=== PATIENT | female | born 1970 | race Caucasian/White ===

== ENCOUNTER → 2017-11-24 | Outpatient (CLI) | payer BC, OTHER ==
--- NOTE | 2017-11-28 11:43 | MM ---
Reason for exam: screening (asymptomatic). Last mammogram was performed 4 years and 11 months ago. History: Patient had first child at age 30. Reductions of both breasts, April 2007. Physical Findings: A clinical breast exam by your physician is recommended on an annual basis and results should be correlated with mammographic findings. MG 3D Screening Mammo W/Cad Bilateral CC and MLO view(s) were taken. Prior study comparison: January 08, 2013, UP DIGITAL BILATERAL MAMMOGRAM w/CAD. January 02, 2013, bilateral digital screening mammo w/CAD. Finding: There is a 35 x 46 mm high density, circumscribed oval mass located 9 cm from the nipple in the lower inner quadrant, posterior position of the right breast. New finding since January 08, 2013 and January 02, 2013. ASSESSMENT: Incomplete: need additional imaging evaluation, BI-RAD 0 RECOMMENDATION: Ultrasound of the right breast. [facility] will attempt to contact patient to return for ultrasound.
== END | disposition home or self-care (01) ==
LOC: RADMAMWWP 15:36
PROVIDERS: ATTEND Obstetrics & Gynecology
DX: Z12.31 Encounter for screening mammogram for malignant neoplasm of breast (principal)
CPT/HCPCS: 77063; 77067

== ENCOUNTER → 2017-12-05 | Outpatient (CLI) | payer BC, OTHER ==
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
== END ==
LOC: RADUSWWP 15:27
PROVIDERS: ATTEND Obstetrics & Gynecology
DX: R92.8 Other abnormal and inconclusive findings on diagnostic imaging of breast (principal)

== ENCOUNTER → 2019-04-13 | Day surgery (SDC) | payer BC ==
[2019-04-11 12:13] VITALS: BMI 42.5
[~2019-04-13] MED LIST: LACTATED RINGERS 1,000 ML IV SCH; LIDOCAINE 1% INJ 10MG/ML (20 ML MDV) ONE; PROPOFOL 10 MG/ML 20 ML VIAL IV ONE
[2019-04-13 09:42] VITALS: TEMP 98.5
[2019-04-13 09:43] LABS: Glucose,Whole Blood 102 mg/dL (75-99)
--- NOTE | 2019-04-13 10:31 | P.GSHP ---
History of Present Illness H&P Date: 04/13/19 Chief Complaint: GERD, morbid obesity [id number] female who presents today for EGD. Patient underwent workup for sleeve gastrectomy. She's had issues with GERD. Past Medical History Past Medical History: GERD/Reflux, Hyperlipidemia, Hypertension, Thyroid Disorder Additional Past Medical History / Comment(s): takes metformin to help w/weight loss History of Any Multi-Drug Resistant Organisms: None Reported Past Surgical History: Breast Surgery, Cholecystectomy, Orthopedic Surgery, Uterine Ablation Additional Past Surgical History / Comment(s): RT Rotator cuff surgery, laparoscopy r/t bilateral ovarian cysts, bilateral breast reduction Past Anesthesia/Blood Transfusion Reactions: Motion Sickness, Postoperative Nausea & Vomiting (PONV) Smoking Status: Never smoker - Past Family History Mother Family Medical History: No Reported History Father Family Medical History: Diabetes Mellitus, Hyperlipidemia, Hypertension Medications and Allergies Home Medications Medication Instructions Recorded Confirmed Type Albuterol Inhaler [Ventolin Hfa 2 puff INHALATION Q6HR PRN 06/30/15 04/13/19 History Inhaler] Ibuprofen [Motrin] 800 mg PO DAILY PRN 06/30/15 04/13/19 History Simvastatin [Zocor] 40 mg PO DAILY 06/30/15 04/13/19 History amLODIPine BESYLATE/BENAZEPRIL 1 cap PO DAILY 06/30/15 04/13/19 History [Lotrel 5-10 MG] Escitalopram [Lexapro] 40 mg PO DAILY 03/27/19 04/13/19 History metFORMIN HCL 500 mg PO DAILY 03/27/19 04/13/19 History Allergies Allergy/AdvReac Type Severity Reaction Status Date / Time latex Allergy Rash/Hives Verified 04/13/19 09:36 Penicillins Allergy Rash/Hives Verified 04/13/19 09:36 Surgical - Exam Vital Signs Temp Pulse Resp BP Pulse Ox 98.5 F 87 16 131/85 95 04/13/19 09:39 04/13/19 09:39 04/13/19 09:39 04/13/19 09:39 04/13/19 09:39 - General well developed, well nourished, no distress - Eyes PERRL - ENT normal pinna - Neck no masses - Respiratory normal expansion - Cardiovascular Rhythm: regular - Abdomen Abdomen: soft, non tender Results - Labs Abnormal Lab Results - Last 24 Hours (Table) 04/13/19 Range/Units 09:41 POC Glucose (mg/dL) 102 H (75-99) mg/dL Assessment and Plan Assessment: GERD, morbid obesity, BMI 44 We'll perform EGD
[2019-04-13 10:43] VITALS: RESP 17
--- NOTE | 2019-04-13 10:44 | P.OP ---
Date of Procedure: 04/13/19 Preoperative Diagnosis: Morbid obesity Postoperative Diagnosis: Antral gastritis Procedure(s) Performed: EGD Anesthesia: MAC Surgeon: Harrison Corona Pathology: other (Antrum) Condition: stable Disposition: PACU Description of Procedure: Patient's placed on the endoscopy table in the lateral position. She received IV sedation. The gastroscope placed oropharynx passed in the esophagus and stomach. Scope was then placed through the pylorus. The first and second portion of the duodenum appeared normal. Scope was then brought back the antrum and this appeared mildly inflamed. A biopsies performed. Scope was retroflexed and remainder stomach appeared normal. The GE junction was at 40 cm the distal esophagus appeared normal. The proximal esophagus appeared normal. The scope was withdrawn for patient..
[2019-04-13 10:56] VITALS: BP 135/79; PULSE 74
== END ==
LOC: ORWHC2ENDO 09:19
PROVIDERS: ATTEND Surgery
DX: K31.9 Disease of stomach and duodenum, unspecified (principal); K29.70 Gastritis, unspecified, without bleeding; K21.9 Gastro-esophageal reflux disease without esophagitis; E78.5 Hyperlipidemia, unspecified; I10 Essential (primary) hypertension; E07.9 Disorder of thyroid, unspecified; F32.9 Major depressive disorder, single episode, unspecified; E66.01 Morbid (severe) obesity due to excess calories; Z68.41 Body mass index [BMI] 40.0-44.9, adult; Z91.040 Latex allergy status; Z88.0 Allergy status to penicillin; Z98.890 Other specified postprocedural states; Z90.49 Acquired absence of other specified parts of digestive tract; Z87.898 Personal history of other specified conditions; Z91.89 Other specified personal risk factors, not elsewhere classified; Z79.84 Long term (current) use of oral hypoglycemic drugs; Z79.899 Other long term (current) drug therapy; Z83.3 Family history of diabetes mellitus; Z83.438 Family history of other disorder of lipoprotein metabolism and other lipidemia; Z82.49 Family history of ischemic heart disease and other diseases of the circulatory system
CPT/HCPCS: 43239; J2001; J2704; 88305

== ENCOUNTER → 2019-04-30 | Outpatient (CLI) | payer BC ==
[2019-04-30 11:04] VITALS: BMI 44.2
[2019-04-30 13:15] VITALS: BP 137/85; PULSE 80; TEMP 98.2
--- NOTE | 2019-05-03 11:49 | P.HPBAR ---
Bariatric H&P - History & Physicial H&P Date: 04/30/19 History & Physicial: Visit/CC: Presurgical class Patient initial contact: Initial weight: 115.167 kg Initial weight in pounds: 253.90 Height: 5 ft 4 in Initial BMI: 43.5 Last weight: Current weight: 116.981 kg Current weight in pounds: 257.90 Current BMI: 44.2 Start body weight (based on NIH guidelines): 54.431 kg Excess body weight loss: The patient is a 49 year-old F who presents for Bariatric Assessment. Patient presents today for presurgical consultation or gastric sleeve. Her BMI is 44. She has an excellent understanding of the sleeve gastrectomy. Past Medical History Past Medical History: GERD/Reflux, Hyperlipidemia, Hypertension, Thyroid Disorder Additional Past Medical History / Comment(s): takes metformin to help w/weight loss History of Any Multi-Drug Resistant Organisms: None Reported Past Surgical History: Breast Surgery, Cholecystectomy, Orthopedic Surgery, Uterine Ablation Additional Past Surgical History / Comment(s): RT Rotator cuff surgery, laparoscopy r/t bilateral ovarian cysts, bilateral breast reduction Past Anesthesia/Blood Transfusion Reactions: Motion Sickness, Postoperative Nausea & Vomiting (PONV) Past Psychological History: Depression Additional Psychological History / Comment(s): takes Lexapro Smoking Status: Never smoker Past Alcohol Use History: Rare Past Drug Use History: None Reported - Past Family History Mother Family Medical History: No Reported History Father Family Medical History: Diabetes Mellitus, Hyperlipidemia, Hypertension Surgical - Exam Vital Signs Temp Pulse BP 98.2 F 80 137/85 04/30/19 13:11 04/30/19 13:11 04/30/19 13:11 - General well developed, well nourished, no distress - Eyes PERRL - ENT normal pinna - Neck no masses - Respiratory normal expansion - Cardiovascular Rhythm: regular - Abdomen Abdomen: soft, non tender Bariatric Assessment & Plan Plan: Morbid obesity, BMI 44. Patient has an excellent understanding signature. We will the risks and benefits of procedure and possible gastric staple line disruption, bleeding or scarring. Patient was scheduled for EGD. Bariatric Checklist Checklist: Plan: Checklist: EGD: 1. Hiatal hernia: 2. H. Pylori: HgbA1c: Vitamin D: Smoking: Never smoker Primary care physician referral: Dr. Jose Francisco Jennings Psychiatry clearance: Cardiology clearance: Sleep study: Diet journal: VTE risk score: VTE risk level: Rehab needs at discharge:
== END | disposition home or self-care (01) ==
LOC: BARWHC3 08:45
PROVIDERS: ATTEND Surgery
DX: E66.01 Morbid (severe) obesity due to excess calories (principal); Z68.41 Body mass index [BMI] 40.0-44.9, adult; Z90.49 Acquired absence of other specified parts of digestive tract
CPT/HCPCS: 97804; 99211

== ENCOUNTER → 2019-07-23 | Outpatient (CLI) | payer BC ==
[2019-07-23 13:44] VITALS: BP 170/103; PULSE 88; RESP 20; TEMP 98; BMI 46.8
--- NOTE | 2019-07-23 15:22 | P.HPBAR ---
Bariatric H&P - History & Physicial H&P Date: 07/23/19 History & Physicial: Visit/CC: Pre surgical visit, no c/o Patient initial contact: Initial weight: 115.167 kg Initial weight in pounds: 253.90 Height: 5 ft 4 in Initial BMI: 43.5 Last weight: Current weight: 123.876 kg Current weight in pounds: 273.10 Current BMI: 46.8 [place] body weight (based on NIH guidelines): 54.431 kg Excess body weight loss: The patient is a 49 year-old F who presents for Bariatric Assessment. Patient presurgical consultation. She is scheduled for gastric sleeve surgery in August. Her BMI is 47. Patient is Sincerely gastrectomy. Over the risks and benefits of procedure including conversion to the open procedure and injury to the stomach liver spleen and gastric staple line disruption bleeding or scarring. Past Medical History Past Medical History: GERD/Reflux, Hyperlipidemia, Hypertension, Thyroid Disorder Additional Past Medical History / Comment(s): takes metformin to help w/weight loss History of Any Multi-Drug Resistant Organisms: None Reported Past Surgical History: Breast Surgery, Cholecystectomy, Orthopedic Surgery, Uterine Ablation Additional Past Surgical History / Comment(s): RT Rotator cuff surgery, laparoscopy r/t bilateral ovarian cysts, bilateral breast reduction Past Anesthesia/Blood Transfusion Reactions: Motion Sickness, Postoperative Nausea & Vomiting (PONV) Past Psychological History: Depression Additional Psychological History / Comment(s): takes Lexapro Smoking Status: Never smoker Past Alcohol Use History: Rare Past Drug Use History: None Reported - Past Family History Mother Family Medical History: No Reported History Father Family Medical History: Diabetes Mellitus, Hyperlipidemia, Hypertension Surgical - Exam Vital Signs Temp Pulse Resp BP 98.0 F 88 20 170/103 07/23/19 13:40 07/23/19 13:40 07/23/19 13:40 07/23/19 13:40 - General well developed, no distress - Eyes PERRL - ENT normal pinna - Neck no masses - Respiratory normal expansion - Cardiovascular Rhythm: regular - Abdomen Abdomen: soft, non tender Bariatric Assessment & Plan Plan: For Sarina, BMI of 47. Patient will be scheduled for sleeve gastrectomy . Bariatric Checklist Checklist: Plan: Checklist: EGD: 1. Hiatal hernia: 2. H. Pylori: HgbA1c: Vitamin D: Smoking: Never smoker Primary care physician referral: Dr. Jose Francisco Jennings Psychiatry clearance: Cardiology clearance: Sleep study: Diet journal: VTE risk score: VTE risk level: Rehab needs at discharge:
== END | disposition home or self-care (01) ==
LOC: BARWHC3 13:11
PROVIDERS: ATTEND Surgery
DX: Z48.815 Encounter for surgical aftercare following surgery on the digestive system (principal); Z90.49 Acquired absence of other specified parts of digestive tract; Z98.890 Other specified postprocedural states
CPT/HCPCS: 99211

== ENCOUNTER → 2019-08-17 | Outpatient (CLI) | payer BC ==
[2019-08-17 14:21] LABS: Basophils # (A) 0.1 k/uL (0-0.2); Basophils % (A) 1 %; Eosinophils # (A) 0.2 k/uL (0-0.7); Eosinophils % (A) 1 %; HCT 41.6 % (34.0-46.0); HGB 13.6 gm/dL (11.4-16.0); Lymphocytes % (A) 17 %; MCH 31.1 pg (25.0-35.0); MCHC 32.7 g/dL (31.0-37.0); MCV 95.3 fL (80.0-100.0); Mean Platelet Volume 7.1; Monocytes # (A) 0.6 k/uL (0-1.0); Monocytes % (A) 5 %; Neutrophils # (A) 8.5 k/uL (1.3-7.7); Neutrophils % (A) 73 %; Platelet Count 358 k/uL (150-450); RBC 4.36 m/uL (3.80-5.40); RDW 13.1 % (11.5-15.5); WBC 11.6 k/uL (3.8-10.6)
[2019-08-17 14:58] LABS: ALT 152 U/L (4-34); AST 129 U/L (14-36); African American GFR (CKD) >90 (>60 ml/min/1.73 sqM); Albumin 4.5 g/dL (3.5-5.0); Alkaline Phosphatase 107 U/L (38-126); Anion Gap 9 mmol/L; Blood Urea Nitrogen 21 mg/dL (7-17); Calcium 9.8 mg/dL (8.4-10.2); Carbon Dioxide 27 mmol/L (22-30); Chloride 101 mmol/L (98-107); Glucose 102 mg/dL (74-99); Non-African American GFR(CKD) >90 (>60 ml/min/1.73 sqM); Sodium 137 mmol/L (137-145); Total Bilirubin 0.4 mg/dL (0.2-1.3); Total Protein 7.9 g/dL (6.3-8.2)
== END | disposition home or self-care (01) ==
LOC: LABPAT 12:20
PROVIDERS: ATTEND Surgery
DX: Z01.818 Encounter for other preprocedural examination (principal); U07.1 COVID-19
CPT/HCPCS: 80053; 85025; 93005; 36415; U0003

== ENCOUNTER 2019-08-20 07:45 | Inpatient (IN) | payer BC ==
[~2019-08-20 07:45] MED LIST changes: +DEXAMETHASONE SOD PHOSPHATE 10 MG/ML 1 ML VIAL IV ONE; +ENOXAPARIN 40 MG/0.4 ML SYRINGE SQ ONE; -LACTATED RINGERS 1,000 ML IV SCH; +LIDOCAINE 1% (10MG/ML) FOR IV START INTRADERMA PRN; -LIDOCAINE 1% INJ 10MG/ML (20 ML MDV) ONE; +ONDANSETRON 4 MG/2 ML VIAL IVP ONE; -PROPOFOL 10 MG/ML 20 ML VIAL IV ONE; +SCOPOLAMINE 1.5MG/72HR PATCH TRANSDERM ONE; +ceFAZolin 3 GM in SODIUM CHLORIDE 0.9% 100 ML IVPB ONE
[2019-08-20] MEDS: LACTATED RINGERS 1,000 ML IV SCH ×2 (09:02→21:32)
--- NOTE | 2019-08-20 10:07 | P.GSHP ---
History of Present Illness H&P Date: 08/20/19 Chief Complaint: Morbid obesity BMI 46 This a 49-year-old female referred from Dr. Jennings. Patient presents today for sleeve gastrectomy. Patient is morbidly obese her BMI is 46. Patient is aware the risks of sleeve gastrectomy including conversion to the open procedure and injury to the stomach liver spleen she's also aware the risk of gastric staple line disruption, bleeding and scarring. Patient has had lifetime problems obesity. She has developed severe comorbidi ties related to morbid obesity. Past Medical History Past Medical History: GERD/Reflux, Hyperlipidemia, Hypertension, Thyroid Disorder Additional Past Medical History / Comment(s): takes metformin to help w/weight loss History of Any Multi-Drug Resistant Organisms: None Reported Past Surgical History: Breast Surgery, Cholecystectomy, Orthopedic Surgery, Uterine Ablation Additional Past Surgical History / Comment(s): RT shoulder rotator cuff surgery, laparoscopy for bilateral ovarian cysts, bilateral breast reduction, left thumb tendon repair, Past Anesthesia/Blood Transfusion Reactions: Motion Sickness, Postoperative Nausea & Vomiting (PONV) Additional Past Anesthesia/Blood Transfusion Reaction / Comment(s): "hard to wake up" Smoking Status: Never smoker - Past Family History Mother Family Medical History: No Reported History Father Family Medical History: Diabetes Mellitus, Hyperlipidemia, Hypertension Medications and Allergies Home Medications Medication Instructions Recorded Confirmed Type Ibuprofen [Motrin] 800 mg PO DAILY PRN 06/30/15 08/16/19 History Simvastatin [Zocor] 40 mg PO DAILY 06/30/15 08/16/19 History Escitalopram Oxalate [Lexapro] 10 mg PO DAILY 08/16/19 08/20/19 History Losartan [Cozaar] 50 mg PO DAILY 08/16/19 08/16/19 History Multivitamins, Thera [Multivitamin 1 tab PO DAILY 08/16/19 08/16/19 History (formulary)] Allergies Allergy/AdvReac Type Severity Reaction Status Date / Time latex Allergy Rash/Hives, Verified 08/20/19 08:45 red skin, lip swelling Penicillins Allergy Unknown Verified 08/20/19 08:45 Childhood Surgical - Exam Vital Signs Temp Pulse Resp BP Pulse Ox 97.7 F 74 18 113/69 96 08/20/19 08:48 08/20/19 08:48 08/20/19 08:48 08/20/19 08:48 08/20/19 08:48 BMI 46 - General well developed, well nourished, no distress - Eyes PERRL - ENT normal pinna - Neck no masses - Respiratory normal expansion - Cardiovascular Rhythm: regular - Abdomen Abdomen: soft, non tender Assessment and Plan Assessment: Morbid obesity, BMI 46. Patient will undergo sleeve gastrectomy.
[2019-08-20] MEDS ORDERED: HYDROmorphone (PF) 1 MG/ML ONE (10:38)
[2019-08-20] MEDS ORDERED: ROCURONIUM BROMIDE 10 MG/ML 5 ML VIAL IV ONE (10:38)
[2019-08-20] MEDS ORDERED: SUCCINYLCHOLINE CHLORIDE VIAL 200 MG/10 ML VIAL IV ONE (10:38)
[2019-08-20] MEDS ORDERED: GLYCOPYRROLATE 0.2 MG/ML 2 ML VIAL ONE (10:38)
[2019-08-20] MEDS ORDERED: PROPOFOL 10 MG/ML 20 ML VIAL IV ONE (10:38)
[2019-08-20] MEDS ORDERED: fentaNYL (PF) 50 MCG/ML 2 ML AMP ONE (10:38)
[2019-08-20] MEDS ORDERED: KETOROLAC 30 MG/ML 1 ML VIAL ONE (10:38)
[2019-08-20] MEDS ORDERED: LIDOCAINE 1% INJ 10MG/ML (20 ML MDV) ONE (10:38)
[2019-08-20] MEDS ORDERED: NEOSTIGMINE 1 MG/ML 10 ML VIAL ONE (10:38)
[2019-08-20] MEDS ORDERED: MIDAZOLAM 2 MG/2 ML VIAL ONE (10:38)
[2019-08-20] MEDS ORDERED: BUPIVACAIN-EPI 0.25%-1:200,000 30 ML VIAL SQ ONE (11:02)
[2019-08-20] MEDS ORDERED: LACTATED RINGERS 1,000 ML IV ONE (11:25)
[2019-08-20] MEDS ORDERED: diphenhydrAMINE 50 MG/ML 1 ML VIAL IVP PRN (11:42)
[2019-08-20] MEDS ORDERED: ONDANSETRON 4 MG/2 ML VIAL IVP PRN (11:42)
[2019-08-20] MEDS ORDERED: HYOSCYAMINE ORAL DROPS 1.875 MG/15 ML BOTTLE PO PRN (11:42)
[2019-08-20] MEDS ORDERED: SIMETHICONE 40 MG/0.6 ML DROPS 2,000 MG/30 ML BOTTLE PO PRN (11:42)
[2019-08-20] MEDS ORDERED: HYDROcodone/APAP 15 ML SOLUTION PO PRN (11:42)
[2019-08-20] MEDS ORDERED: NALOXONE 0.4 MG/ML 1 ML VIAL IV PRN (11:42)
--- NOTE | 2019-08-20 11:42 | P.OP ---
Date of Procedure: 08/20/19 Preoperative Diagnosis: Morbid obesity, BMI 46 Postoperative Diagnosis: Morbid obesity, BMI 46 Procedure(s) Performed: Laparoscopic sleeve gastrectomy Anesthesia: KYLAH Surgeon: Harrison Corona Estimated Blood Loss (ml): 10 Pathology: other (Stomach) Condition: stable Disposition: PACU Description of Procedure: The patient was placed on the operating room table in the supine position. She received general anesthesia and then was placed in dorsal lithotomy position. Her abdomen was prepped and draped in sterile fashion. The skin incision sites were anesthetized 1% local Xylocaine. And then the skin was incised with an 11 blade in the left lateral position. Using a blade less trocar under direct visualization the peritoneal cavity was entered. The abdomen was insufflated and then a 5 mm laparoscope was placed into the peritoneal cavity. A 5 mm trocar was placed in the right epigastric, and right lateral position. A 15 mm trocar was placed in the supra-umbilical position and another 5 mm trocar was placed in the left lateral position. The left lateral lobe of the liver was retracted. The stomach was visualized. The greater curvature of the stomach was then dissected using the Harmonic scissors. The dissection occurred approximately 5 cm from the pylorus to the level of the left mark. There was no hiatal hernia seen. At this point a 40-Bengali bougie dilator was placed the oropharynx and passed into the esophagus and into the stomach by the [employer]. The sleeve gastrectomy was performed by using the powered echelon stapler with a seam guard buttress material. Sequential firings of the stapler were performed. The gastric remnant was then brought out through the 15 mm trocar site. The dilator was withdrawn. And a orogastric tube was replaced into the stomach. The stomach was insufflated with 200 mL of methylene blue normal saline. There was no evidence of extravasation. The abdomen was irrigated there is no bleeding seen. The Natanael-Sayra device was used to close the 15 mm trocar with 0 Vicryl. Skin was closed with interrupted 3-0 Monocryl sutures once the trochars withdrawn. Dermabond dressing was applied. Patient was sent to recovery in stable condition.
[2019-08-20] MEDS: HYDROmorphone 0.5 MG/0.5 ML SYRINGE IVP PRN ×6 (12:18→14:30)
[2019-08-20] MEDS: HYDROmorphone 1 MG/ML 1 ML SYRINGE IVP PRN ×2 (15:46→20:49)
[2019-08-20] MEDS: ALBUTEROL NEBULIZED 2.5 MG/3 ML INHALATION SCH ×2 (17:05→20:56)
[2019-08-20] MEDS: KETOROLAC 30 MG/ML 1 ML VIAL IVP SCH ×2 (17:59→23:17)
[2019-08-20] MEDS: 0.9% NACL WITH KCL 20 MEQ/L 1,000 ML IV SCH ×2 (18:00→20:40)
[2019-08-20] MEDS: ceFAZolin 3 GM in SODIUM CHLORIDE 0.9% 100 ML IVPB SCH (18:00)
[2019-08-20] MEDS: FAMOTIDINE 20 MG TAB PO SCH (20:40)
[2019-08-20] MEDS: ENOXAPARIN 40 MG/0.4 ML SYRINGE SQ SCH (22:43)
[2019-08-21] MEDS: ceFAZolin 3 GM in SODIUM CHLORIDE 0.9% 100 ML IVPB SCH (02:02)
[2019-08-21] MEDS: HYDROmorphone 1 MG/ML 1 ML SYRINGE IVP PRN ×2 (02:04→08:07)
[2019-08-21] MEDS: 0.9% NACL WITH KCL 20 MEQ/L 1,000 ML IV SCH (04:25)
[2019-08-21] MEDS: KETOROLAC 30 MG/ML 1 ML VIAL IVP SCH ×3 (06:03→17:22)
[2019-08-21] MEDS: ALBUTEROL NEBULIZED 2.5 MG/3 ML INHALATION SCH ×3 (07:24→17:01)
[2019-08-21] MEDS: FAMOTIDINE 20 MG TAB PO SCH (08:04)
[2019-08-21] MEDS: ENOXAPARIN 40 MG/0.4 ML SYRINGE SQ SCH (08:07)
[2019-08-21 08:51] LABS: Basophils % (A) 0 %; Eosinophils % (A) 0 %; HCT 37.1 % (34.0-46.0); Lymphocytes # (A) 2.8 k/uL (1.0-4.8); Lymphocytes % (A) 19 %; MCH 31.2 pg (25.0-35.0); MCHC 32.4 g/dL (31.0-37.0); MCV 96.2 fL (80.0-100.0); Mean Platelet Volume 7.2; Monocytes # (A) 0.8 k/uL (0-1.0); Monocytes % (A) 5 %; Neutrophils # (A) 11.1 k/uL (1.3-7.7); Neutrophils % (A) 73 %; Platelet Count 338 k/uL (150-450); RBC 3.85 m/uL (3.80-5.40); RDW 13.3 % (11.5-15.5); WBC 15.2 k/uL (3.8-10.6)
[2019-08-21 08:52] LABS: African American GFR (CKD) >90 (>60 ml/min/1.73 sqM); Anion Gap 8 mmol/L; Blood Urea Nitrogen 13 mg/dL (7-17); Calcium 8.3 mg/dL (8.4-10.2); Carbon Dioxide 22 mmol/L (22-30); Chloride 108 mmol/L (98-107); Magnesium 1.9 mg/dL (1.6-2.3); Non-African American GFR(CKD) >90 (>60 ml/min/1.73 sqM); Phosphorus 2.3 mg/dL (2.5-4.5); Potassium 4.1 mmol/L (3.5-5.1); Sodium 138 mmol/L (137-145)
[2019-08-21] MEDS: 1: MVI, ADULT NO.4 WITH VIT K 10 ML, THIAMINE 100 MG, FOLIC ACID 1 MG, POTASSIUM CHLORID IV SCH ×12 (08:59→17:22)
[2019-08-21] MEDS ORDERED: PANTOPRAZOLE 40 MG/10 ML VIAL IV SCH (09:00)
[2019-08-21] MEDS ORDERED: LOSARTAN 50 MG TAB PO SCH (09:00)
[2019-08-21 09:57] VITALS: BMI 45.9
--- NOTE | 2019-08-21 10:26 | P.CONS ---
History of Present Illness - Reason for Consult Consult date: 08/21/19 med. management hypertension, hypothyroidism depression Requesting physician: Harrison Corona - Chief Complaint Status post laparoscopic sleeve gastrectomy - History of Present Illness This is a 49-year-old female with history of gastroesophageal reflux disease, hypertension, hyperlipidemia, hypothyroidism, depression, obesity-BMI 46 and multiple other medical issues, status post laparoscopic sleeve gastrectomy. Tolerated procedure well. Ambulating, tolerating exertion well. Complains of generalized discomfort. Denies passing flatus or bowel movement. Denies chest pain, palpitations or shortness of breath. Incentive spirometer up to 1500. Maintained on IV fluid hydration .Upper GI/esophagram pending. Afebrile, WBC 15,reactive,maintaining O2 sats in the 90s on room air.VSS. Review of Systems Constitutional: Denied any fatigue denied any fever. Cardio vascular: denied any chest pain, palpitations Gastrointestinal denied any nausea vomiting Pulmonary: Denied any shortness of breath cough Neurologic denied any new focal deficits ROS Statement: Those systems with pertinent positive or pertinent negative responses have been documented in the HPI. ROS Other: All systems not noted in ROS Statement are negative. Past Medical History Past Medical History: GERD/Reflux, Hyperlipidemia, Hypertension, Thyroid Disorder Additional Past Medical History / Comment(s): takes metformin to help w/weight loss History of Any Multi-Drug Resistant Organisms: None Reported Past Surgical History: Breast Surgery, Cholecystectomy, Orthopedic Surgery, Uterine Ablation Additional Past Surgical History / Comment(s): RT shoulder rotator cuff surgery, laparoscopy for bilateral ovarian cysts, bilateral breast reduction, left thumb tendon repair, Past Anesthesia/Blood Transfusion Reactions: Motion Sickness, Postoperative Nausea & Vomiting (PONV) Additional Past Anesthesia/Blood Transfusion Reaction / Comm: "hard to wake up" Past Psychological History: Depression Additional Psychological History / Comment(s): . Smoking Status: Never smoker Past Alcohol Use History: Occasional Past Drug Use History: None Reported - Past Family History Mother Family Medical History: No Reported History Father Family Medical History: Diabetes Mellitus, Hyperlipidemia, Hypertension Medications and Allergies Home Medications Medication Instructions Recorded Confirmed Type Ibuprofen [Motrin] 800 mg PO DAILY PRN 06/30/15 08/16/19 History Simvastatin [Zocor] 40 mg PO DAILY 06/30/15 08/16/19 History Escitalopram Oxalate [Lexapro] 10 mg PO DAILY 08/16/19 08/20/19 History Losartan [Cozaar] 50 mg PO DAILY 08/16/19 08/16/19 History Multivitamins, Thera [Multivitamin 1 tab PO DAILY 08/16/19 08/16/19 History (formulary)] Allergies Allergy/AdvReac Type Severity Reaction Status Date / Time latex Allergy Rash/Hives, Verified 08/20/19 08:45 red skin, lip swelling Penicillins Allergy Unknown Verified 08/20/19 08:45 Childhood Physical Exam Vitals: Vital Signs Temp Pulse Pulse Pulse Resp BP Pulse Ox 08/21/19 08:16 80 20 08/21/19 07:34 96 08/21/19 07:33 80 08/21/19 07:25 82 08/21/19 07:00 98.2 F 78 20 123/74 99 08/21/19 04:08 98.4 F 77 18 109/69 91 L 08/20/19 19:32 98.7 F 97 18 116/71 93 L 08/20/19 17:26 80 08/20/19 17:06 84 94 L 08/20/19 15:25 98.0 F 79 16 125/70 93 L 08/20/19 14:30 80 14 141/80 95 08/20/19 14:00 77 16 142/82 95 08/20/19 13:30 93 16 126/68 93 L 08/20/19 13:15 77 16 127/73 93 L 08/20/19 13:00 75 16 136/73 94 L 08/20/19 12:45 77 16 134/67 94 L 08/20/19 12:30 73 16 133/66 94 L 08/20/19 12:15 70 18 147/68 98 08/20/19 12:00 77 16 151/78 98 08/20/19 11:48 97.7 F 86 16 169/78 98 Intake and Output 08/20/19 08/21/19 08/21/19 22:59 06:59 14:59 Intake Total 900 Output Total 350 Balance -350 900 Intake: Intake, IV Titration 900 Amount 0.9% NaCl with KCl 20 Meq 900 /l 1,000 ml @ 150 mls/hr IV .Q6H40M [facility] Rx#: [id number] Output: Urine 350 Other: Voiding Method Toilet Toilet Toilet # Voids 1 Weight 121.5 kg 121.5 kg PHYSICAL EXAM: VITAL SIGNS: As above GENERAL: Sitting up in bed, no acute HEENT: Conjunctivae normal. eyes normal. Oral mucosa dry NECK: No JVD. No thyroid enlargement. No LNs CARDIOVASCULAR: S1, S2 regular. No murmur RESPIRATION: Breath sounds diminished in the bases. No rhonchi or crackles. No bronchial breathing. ABDOMEN: Soft, status post surgery. No guarding .Bowel sounds heard. LEGS: No edema. no swelling PSYCHIATRY: Alert and oriented X3, mood and affect normal. NERVOUS SYSTEM: Cranial N 2-12 grossly normal. Moves all 4 limbs. No focal deficits. Strength and sensation grossly intact.. Skin: no rash Lymphatic system. No LN neck axilla. Results CBC & Chem 7: 08/21/19 08:13 08/21/19 08:13 Labs: Abnormal Lab Results - Last 24 Hours (Table) 08/21/19 08/21/19 Range/Units 08:13 08:13 WBC 15.2 H (3.8-10.6) k/uL Neutrophils # 11.1 H (1.3-7.7) k/uL Chloride 108 H (98-107) mmol/L Calcium 8.3 L (8.4-10.2) mg/dL Phosphorus 2.3 L (2.5-4.5) mg/dL Assessment and Plan Assessment: Status post laparoscopic sleeve gastrectomy secondary to morbid obesity, BMI 46, failed outpatient treatment Gastroesophageal reflux disease Hyperlipidemia Hypertension Hypothyroidism Depression Plan: Continue current medication regime ,monitoring and symptomatic treatment. Aggressive pulmonary toileting with incentive spirometer reinforced. NPO- Postprocedure UGI pending. We'll resume home meds pending clearance from surgery. Increase ambulation as tolerated. Pain management as per surgery. Thank you Dr. Corona for the consult. The impression and plan of care has been dictated as directed. : I performed a history and examination of this patient, discussed the same with the dictator. I agree with the dictator's note ,documented as a scribe. Any additional findings or plans will be noted.
[2019-08-21] MEDS ORDERED: ESCITALOPRAM 10 MG TAB PO SCH (10:45)
--- NOTE | 2019-08-21 11:03 | P.DS ---
Providers Date of admission: 08/20/19 08:16 Expected date of discharge: 08/21/19 Attending physician: Harrison Corona Consults: 08/20/19 11:42 Consult Physician Routine Consulting Provider: Jose Francisco Jennings Reason/Comments: Medical management Do you want consulting provider notified?: Yes Primary care physician: Jose Francisco Jennings [facility] Course: This a 49-year-old female who underwent sleeve gastrectomy yesterday. Patient did extremely well postoperatively. Please see hospital chart for details. Procedures: Laparoscopic sleeve gastrectomy Patient Condition at Discharge: Good Plan - Discharge Summary Discharge Rx Participant: Yes New Discharge Prescriptions: New Bisacodyl [Dulcolax] 5 mg PO DAILY PRN #10 tablet. PRN Reason: Constipation Simethicone 40 mg/0.6 ml Drops [Mylicon Drops] 40 mg PO PCHS PRN #30 ml PRN Reason: Gas Omeprazole [PriLOSEC] 40 mg PO DAILY #30 capsule. Ondansetron Odt [Zofran Odt] 4 mg PO Q8HR PRN #9 tab PRN Reason: Nausea HYDROcodone/APAP 5-325MG [[place] 5-325] 1 tab PO Q6HR PRN #10 tab PRN Reason: Pain No Action Simvastatin [Zocor] 40 mg PO DAILY Ibuprofen [Motrin] 800 mg PO DAILY PRN PRN Reason: Pain Losartan [Cozaar] 50 mg PO DAILY Escitalopram Oxalate [Lexapro] 10 mg PO DAILY Multivitamins, Thera [Multivitamin (formulary)] 1 tab PO DAILY Discharge Medication List Ibuprofen [Motrin] 800 mg PO DAILY PRN 06/30/15 [History] Simvastatin [Zocor] 40 mg PO DAILY 06/30/15 [History] Escitalopram Oxalate [Lexapro] 10 mg PO DAILY 08/16/19 [History] Losartan [Cozaar] 50 mg PO DAILY 08/16/19 [History] Multivitamins, Thera [Multivitamin (formulary)] 1 tab PO DAILY 08/16/19 [History] Bisacodyl [Dulcolax] 5 mg PO DAILY PRN #10 tablet. 08/21/19 [Rx] HYDROcodone/APAP 5-325MG [Ripley 5-325] 1 tab PO Q6HR PRN #10 tab 08/21/19 [Rx] Omeprazole [PriLOSEC] 40 mg PO DAILY #30 capsule. 08/21/19 [Rx] Ondansetron Odt [Zofran Odt] 4 mg PO Q8HR PRN #9 tab 08/21/19 [Rx] Simethicone 40 mg/0.6 ml Drops [Mylicon Drops] 40 mg PO PCHS PRN #30 ml 08/21/19 [Rx] Follow up Appointment(s)/Referral(s): [facility] [NON-STAFF] - 1 Week
--- NOTE | 2019-08-21 13:46 | FL ---
EXAMINATION TYPE: FL UGI DATE OF EXAM: 08/21/2019 COMPARISON: NONE HISTORY: Postop bariatric surgery TECHNIQUE: A single contrast UGI study is performed. FINDINGS: Cider Press Operator image of the abdomen shows no gross abnormality. 4 images submitted and 19 seconds o f fluoroscopy. There is no evidence of obstruction or extravasation. There is mild delay at the level the GE junctio n. Surgical clips are seen. Small amount of free air likely postsurgical not excluded. IMPRESSION: 1. No evidence of obstruction or extravasation.
[2019-08-21 16:18] VITALS: BP 114/73; PULSE 77; RESP 18; TEMP 97.5
== END 2019-08-21 17:55 | disposition home or self-care (01) | DRG 621 ==
LOC: 2ORMAIN 08:16 → UNDOADMIN 08:16 → 1SOBS 08:16 → 4SSUR 14:35
PROVIDERS: ADMIT Surgery; ATTEND Surgery
PROC: 0DB64Z3 Excision of Stomach, Percutaneous Endoscopic Approach, Vertical (ICD-10-PCS; principal; 2019-08-20 09:25)
DX: E66.01 Morbid (severe) obesity due to excess calories (principal); Z68.42 Body mass index [BMI] 45.0-49.9, adult; K21.9 Gastro-esophageal reflux disease without esophagitis; I10 Essential (primary) hypertension; E78.5 Hyperlipidemia, unspecified; E03.9 Hypothyroidism, unspecified; F32.9 Major depressive disorder, single episode, unspecified; Z79.899 Other long term (current) drug therapy; Z90.49 Acquired absence of other specified parts of digestive tract; Z98.890 Other specified postprocedural states; Z87.828 Personal history of other (healed) physical injury and trauma; Z88.0 Allergy status to penicillin; Z91.040 Latex allergy status; Z83.3 Family history of diabetes mellitus; Z82.49 Family history of ischemic heart disease and other diseases of the circulatory system; Z83.438 Family history of other disorder of lipoprotein metabolism and other lipidemia
CPT/HCPCS: 74240; 80051; 82310; 82565; 83735; 84100; 84520; 85025; 88307; 94640; 94760; 94762

== ENCOUNTER → 2019-09-03 | Outpatient (CLI) | payer BC ==
[2019-09-03 14:52] VITALS: BP 144/85; PULSE 80; RESP 16; TEMP 98.6; BMI 44.2
--- NOTE | 2019-09-13 13:00 | P.HPBAR ---
Bariatric H&P - History & Physicial H&P Date: 09/03/19 History & Physicial: Visit/CC: post sleeve Patient initial contact: Initial weight: 115.167 kg Initial weight in pounds: 253.90 Height: 5 ft 4 in Initial BMI: 43.5 Last weight: Current weight: 117.027 kg Current weight in pounds: 258.00 Current BMI: 44.2 [place] body weight (based on NIH guidelines): 54.431 kg Excess body weight loss: The patient is a 49 year-old F who presents for Bariatric Assessment.patient presents today for sleeve gastrectomy follow-up. She is doing quite well. She's had some minimal GERD. Past Medical History Past Medical History: GERD/Reflux, Hyperlipidemia, Hypertension, Thyroid Disorder Additional Past Medical History / Comment(s): takes metformin to help w/weight loss History of Any Multi-Drug Resistant Organisms: None Reported Past Surgical History: Breast Surgery, Cholecystectomy, Orthopedic Surgery, Uterine Ablation Additional Past Surgical History / Comment(s): RT Rotator cuff surgery, laparoscopy r/t bilateral ovarian cysts, bilateral breast reduction Past Anesthesia/Blood Transfusion Reactions: Motion Sickness, Postoperative Nausea & Vomiting (PONV) Additional Past Anesthesia/Blood Transfusion Reaction / Comm: "hard to wake up" Past Psychological History: Depression Additional Psychological History / Comment(s): takes Lexapro Smoking Status: Never smoker Past Alcohol Use History: Rare Past Drug Use History: None Reported - Past Family History Mother Family Medical History: No Reported History Father Family Medical History: Diabetes Mellitus, Hyperlipidemia, Hypertension Surgical - Exam Vital Signs Temp Pulse Resp BP 98.6 F 80 16 144/85 09/03/19 14:50 09/03/19 14:50 09/03/19 14:50 09/03/19 14:50 - General well developed, well nourished, no distress - Abdomen Abdomen: soft, non tender Bariatric Assessment & Plan Plan: patient is doing very well. Her GERD is minimal will be observed. She'll follow up in 4 weeks Bariatric Checklist Checklist: Plan: Checklist: EGD: 1. Hiatal hernia: 2. H. Pylori: HgbA1c: Vitamin D: Smoking: Never smoker Primary care physician referral: Dr. Jose Francisco Jennings Psychiatry clearance: Cardiology clearance: Sleep study: Diet journal: VTE risk score: VTE risk level: Rehab needs at discharge:
== END | disposition home or self-care (01) ==
LOC: BARWHC3 14:15
PROVIDERS: ATTEND Surgery
DX: Z48.815 Encounter for surgical aftercare following surgery on the digestive system (principal); K21.9 Gastro-esophageal reflux disease without esophagitis; Z98.84 Bariatric surgery status
CPT/HCPCS: 97803; 99211

== ENCOUNTER → 2019-09-17 | Outpatient (CLI) | payer BC ==
[2019-09-17 13:19] VITALS: BP 114/78; PULSE 75; RESP 16; TEMP 98.6; BMI 43.2
--- NOTE | 2019-09-17 13:22 | P.HPBAR ---
Bariatric H&P - History & Physicial H&P Date: 09/17/19 History & Physicial: Visit/CC: sleeve f/u Patient initial contact: Initial weight: 115.167 kg Initial weight in pounds: 253.90 Height: 5 ft 4 in Initial BMI: 43.5 Last weight: Current weight: 114.305 kg Current weight in pounds: 252.00 Current BMI: 43.2 [place] body weight (based on NIH guidelines): 54.431 kg Excess body weight loss: 1.4% The patient is a 49 year-old F who presents for Bariatric Assessment. Patient presents today for sleeve gastrectomy fall. She's had minimal GERD. She's approximate one-month post surgery. Past Medical History Past Medical History: GERD/Reflux, Hyperlipidemia, Hypertension, Thyroid Disorder Additional Past Medical History / Comment(s): takes metformin to help w/weight loss History of Any Multi-Drug Resistant Organisms: None Reported Past Surgical History: Breast Surgery, Cholecystectomy, Orthopedic Surgery, Uterine Ablation Additional Past Surgical History / Comment(s): RT Rotator cuff surgery, laparoscopy r/t bilateral ovarian cysts, bilateral breast reduction Past Anesthesia/Blood Transfusion Reactions: Motion Sickness, Postoperative Nausea & Vomiting (PONV) Additional Past Anesthesia/Blood Transfusion Reaction / Comm: "hard to wake up" Smoking Status: Never smoker - Past Family History Mother Family Medical History: No Reported History Father Family Medical History: Diabetes Mellitus, Hyperlipidemia, Hypertension Surgical - Exam Vital Signs Temp Pulse Resp BP 98.6 F 75 16 114/78 09/17/19 13:16 09/17/19 13:16 09/17/19 13:16 09/17/19 13:16 - General well developed, well nourished, no distress - Eyes PERRL - ENT normal pinna - Neck no masses - Respiratory normal expansion - Cardiovascular Rhythm: regular - Abdomen Abdomen: soft, non tender Bariatric Assessment & Plan Plan: Status post sleeve gastrectomy. Patient did quite well. Her GERD is minimal will be observed. She'll follow-up in 4 weeks. Bariatric Checklist Checklist: Plan: Checklist: EGD: 1. Hiatal hernia: 2. H. Pylori: HgbA1c: Vitamin D: Smoking: Never smoker Primary care physician referral: Dr. Jose Francisco Jennings Psychiatry clearance: Cardiology clearance: Sleep study: Diet journal: VTE risk score: VTE risk level: Rehab needs at discharge:
[2019-09-17 14:51] LABS: HCT 44.4 % (34.0-46.0); HGB 14.3 gm/dL (11.4-16.0); MCH 30.7 pg (25.0-35.0); MCHC 32.2 g/dL (31.0-37.0); MCV 95.3 fL (80.0-100.0); Mean Platelet Volume 7.4; Platelet Count 310 k/uL (150-450); RBC 4.66 m/uL (3.80-5.40); RDW 13.2 % (11.5-15.5); WBC 10.5 k/uL (3.8-10.6)
[2019-09-17 23:35] LABS: African American GFR (CKD) 122.3 (60.0-200.0); Albumin 4.4 g/dL (3.80-4.90); Albumin/Globulin Ratio 1.69 (1.60-3.17); Anion Gap 12.1 mmol/L (4.00-12.00); BUN/Creat Ratio 28.33 Ratio (12.00-20.00); Calcium 10.1 mg/dL (8.7-10.3); Carbon Dioxide 24.9 mmol/L (21.6-31.8); Globulin 2.6 g/dL (1.6-3.3); Non-African American GFR(CKD) 105.5 (60.0-200.0); Potassium 4.5 mmol/L (3.5-5.5); Total Bilirubin 0.4 mg/dL (0.3-1.2)
[2019-09-18 00:04] LABS: Folate, Serum 18.3 ng/mL
== END | disposition home or self-care (01) ==
LOC: BARWHC3 12:59
PROVIDERS: ATTEND Surgery
DX: E66.01 Morbid (severe) obesity due to excess calories (principal); K21.9 Gastro-esophageal reflux disease without esophagitis; E55.9 Vitamin D deficiency, unspecified; E44.0 Moderate protein-calorie malnutrition; Z68.41 Body mass index [BMI] 40.0-44.9, adult; Z71.3 Dietary counseling and surveillance; Z90.49 Acquired absence of other specified parts of digestive tract; Z98.890 Other specified postprocedural states
CPT/HCPCS: 80053; 82306; 82607; 82746; 84425; 84443; 85027; 97803; 99211

== ENCOUNTER → 2019-10-15 | Outpatient (CLI) | payer BC ==
[2019-10-15 14:08] VITALS: BP 135/85; PULSE 76; RESP 16; TEMP 98.1; BMI 41.7
--- NOTE | 2019-10-15 14:31 | P.HPBAR ---
Bariatric H&P - History & Physicial H&P Date: 10/15/19 History & Physicial: Visit/CC: sleeve f/u Patient initial contact: Initial weight: 115.167 kg Initial weight in pounds: 253.90 Height: 5 ft 4 in Initial BMI: 43.5 Last weight: Current weight: 110.223 kg Current weight in pounds: 243.00 Current BMI: 41.7 [place] body weight (based on NIH guidelines): 54.431 kg Excess body weight loss: 8.1% The patient is a 49 year-old F who presents for Bariatric Assessment. Patient presents today for sleeve gastrectomy follow-up. She's had some mild GERD. Past Medical History Past Medical History: GERD/Reflux, Hyperlipidemia, Hypertension, Thyroid Disorder Additional Past Medical History / Comment(s): takes metformin to help w/weight loss History of Any Multi-Drug Resistant Organisms: None Reported Past Surgical History: Breast Surgery, Cholecystectomy, Orthopedic Surgery, Uterine Ablation Additional Past Surgical History / Comment(s): RT Rotator cuff surgery, laparoscopy r/t bilateral ovarian cysts, bilateral breast reduction Past Anesthesia/Blood Transfusion Reactions: Motion Sickness, Postoperative Nausea & Vomiting (PONV) Additional Past Anesthesia/Blood Transfusion Reaction / Comm: "hard to wake up" Past Psychological History: Depression Additional Psychological History / Comment(s): takes Lexapro Smoking Status: Unknown if ever smoked Past Alcohol Use History: Rare Past Drug Use History: None Reported - Past Family History Mother Family Medical History: No Reported History Father Family Medical History: Diabetes Mellitus, Hyperlipidemia, Hypertension Surgical - Exam Vital Signs Temp Pulse Resp BP 98.1 F 76 16 135/85 10/15/19 14:06 10/15/19 14:06 10/15/19 14:06 10/15/19 14:06 - General well developed, well nourished, no distress - Eyes PERRL - ENT normal pinna - Neck no masses - Respiratory normal expansion - Cardiovascular Rhythm: regular - Abdomen Abdomen: soft, non tender Bariatric Assessment & Plan Plan: Status post sleeve yesterday. Patient's girth is minimal we observe her to follow-up in 4 weeks. Bariatric Checklist Checklist: Plan: Checklist: EGD: 1. Hiatal hernia: 2. H. Pylori: HgbA1c: Vitamin D: Smoking: Never smoker Primary care physician referral: Dr. Jose Francisco Jennings Psychiatry clearance: Cardiology clearance: Sleep study: Diet journal: VTE risk score: VTE risk level: Rehab needs at discharge:
== END | disposition home or self-care (01) ==
LOC: BARWHC3 13:33
PROVIDERS: ATTEND Surgery
DX: Z48.815 Encounter for surgical aftercare following surgery on the digestive system (principal); K21.9 Gastro-esophageal reflux disease without esophagitis; Z90.49 Acquired absence of other specified parts of digestive tract; Z98.890 Other specified postprocedural states; Z98.84 Bariatric surgery status
CPT/HCPCS: 99211

== ENCOUNTER → 2019-11-26 | Outpatient (CLI) | payer BC ==
[2019-11-26 14:00] VITALS: BP 136/79; PULSE 71; RESP 18; TEMP 98
--- NOTE | 2019-11-26 14:16 | P.HPBAR ---
Bariatric H&P - History & Physicial H&P Date: 11/26/19 History & Physicial: Visit/CC: three month follow up Patient initial contact: Initial weight: 115.167 kg Initial weight in pounds: 253.90 Height: 5 ft 4 in Initial BMI: Last weight: Current weight: 106.594 kg Current weight in pounds: Current BMI: [place] body weight (based on NIH guidelines): Excess body weight loss: The patient is a 49 year-old F who presents for Bariatric Assessment. Patient resents today for sleeve strictly follow-up. She lost 8 pounds her last visit. She has minimal GERD. Past Medical History Past Medical History: GERD/Reflux, Hyperlipidemia, Hypertension, Thyroid Disorder Additional Past Medical History / Comment(s): takes metformin to help w/weight loss History of Any Multi-Drug Resistant Organisms: None Reported Past Surgical History: Breast Surgery, Cholecystectomy, Orthopedic Surgery, Uterine Ablation Additional Past Surgical History / Comment(s): RT Rotator cuff surgery, laparoscopy r/t bilateral ovarian cysts, bilateral breast reduction Past Anesthesia/Blood Transfusion Reactions: Motion Sickness, Postoperative Nausea & Vomiting (PONV) Additional Past Anesthesia/Blood Transfusion Reaction / Comm: "hard to wake up" Past Psychological History: Depression Additional Psychological History / Comment(s): takes Lexapro Smoking Status: Unknown if ever smoked Past Alcohol Use History: Rare Past Drug Use History: None Reported - Past Family History Mother Family Medical History: No Reported History Father Family Medical History: Diabetes Mellitus, Hyperlipidemia, Hypertension Surgical - Exam Vital Signs Temp Pulse Resp BP 98 F 71 18 136/79 11/26/19 13:56 11/26/19 13:56 11/26/19 13:56 11/26/19 13:56 - General well developed, well nourished, no distress - Eyes PERRL - ENT normal pinna - Neck no masses - Respiratory normal expansion - Cardiovascular Rhythm: regular - Abdomen Abdomen: soft, non tender Bariatric Assessment & Plan Plan: Status post sleeve gastrectomy. Patient is doing quite well. Her GERD is minimal will be observed. She'll follow-up in 4 weeks. Bariatric Checklist Checklist: Plan: Checklist: EGD: 1. Hiatal hernia: 2. H. Pylori: HgbA1c: Vitamin D: Smoking: Never smoker Primary care physician referral: Dr. Jose Francisco Jennings Psychiatry clearance: Cardiology clearance: Sleep study: Diet journal: VTE risk score: VTE risk level: Rehab needs at discharge:
[2019-11-26 14:34] VITALS: BMI 40.3
[2019-11-26 16:41] LABS: HCT 44.5 % (34.0-46.0); HGB 14.2 gm/dL (11.4-16.0); MCH 29.7 pg (25.0-35.0); MCHC 31.9 g/dL (31.0-37.0); MCV 93.1 fL (80.0-100.0); Mean Platelet Volume 7.5; Platelet Count 359 k/uL (150-450); RBC 4.78 m/uL (3.80-5.40); RDW 13.7 % (11.5-15.5); WBC 13.2 k/uL (3.8-10.6)
[2019-11-27 01:52] LABS: African American GFR (CKD) 122.3 (60.0-200.0); Albumin 4.2 g/dL (3.80-4.90); Albumin/Globulin Ratio 1.56 (1.60-3.17); Anion Gap 13.2 mmol/L (4.00-12.00); Calcium 9.3 mg/dL (8.7-10.3); Carbon Dioxide 23.8 mmol/L (21.6-31.8); Globulin 2.7 g/dL (1.6-3.3); Non-African American GFR(CKD) 105.5 (60.0-200.0); Potassium 4.1 mmol/L (3.5-5.5); Total Bilirubin 0.4 mg/dL (0.3-1.2); Total Protein 6.9 g/dL (6.2-8.2)
[2019-11-27 02:05] LABS: Folate, Serum 9.9 ng/mL
== END | disposition home or self-care (01) ==
LOC: BARWHC3 13:51
PROVIDERS: ATTEND Surgery
DX: Z48.815 Encounter for surgical aftercare following surgery on the digestive system (principal); E44.0 Moderate protein-calorie malnutrition; E55.9 Vitamin D deficiency, unspecified; Z98.84 Bariatric surgery status
CPT/HCPCS: 36415; 80053; 82306; 82607; 82746; 84425; 84443; 85027; 97803; 99211

== ENCOUNTER → 2019-12-24 | Outpatient (CLI) | payer BC ==
[2019-12-24 13:24] VITALS: BP 137/82; PULSE 98; TEMP 98.7; BMI 39.6
--- NOTE | 2019-12-24 14:12 | P.HPBAR ---
Bariatric H&P - History & Physicial H&P Date: 12/24/19 History & Physicial: Visit/CC: four month follow up Patient initial contact: Initial weight: 115.167 kg Initial weight in pounds: 253.90 Height: 5 ft 4 in Initial BMI: 43.5 Last weight: Current weight: 104.78 kg Current weight in pounds: 231.00 Current BMI: 39.6 [place] body weight (based on NIH guidelines): 54.431 kg Excess body weight loss: 17.1% The patient is a 49 year-old F who presents for Bariatric Assessment. Patient resents today for sleeve gastrectomy follow-up. She's had some mild GERD. Overall she's doing well. Past Medical History Past Medical History: GERD/Reflux, Hyperlipidemia, Hypertension, Thyroid Disorder Additional Past Medical History / Comment(s): takes metformin to help w/weight loss History of Any Multi-Drug Resistant Organisms: None Reported Past Surgical History: Breast Surgery, Cholecystectomy, Orthopedic Surgery, Uterine Ablation Additional Past Surgical History / Comment(s): RT Rotator cuff surgery, laparoscopy r/t bilateral ovarian cysts, bilateral breast reduction Past Anesthesia/Blood Transfusion Reactions: Motion Sickness, Postoperative Nausea & Vomiting (PONV) Additional Past Anesthesia/Blood Transfusion Reaction / Comm: "hard to wake up" Smoking Status: Unknown if ever smoked - Past Family History Mother Family Medical History: No Reported History Father Family Medical History: Diabetes Mellitus, Hyperlipidemia, Hypertension Surgical - Exam Vital Signs Temp Pulse BP 98.7 F 98 137/82 12/24/19 13:21 12/24/19 13:21 12/24/19 13:21 - General well developed, well nourished, no distress - Eyes PERRL - ENT normal pinna - Neck no masses - Respiratory normal expansion - Cardiovascular Rhythm: regular - Abdomen Abdomen: soft, non tender Bariatric Assessment & Plan Plan: Status post sleeve gastrectomy. Patient is doing quite well. Her GERD is minimal observed. She'll follow-up in 4 weeks. Bariatric Checklist Checklist: Plan: Checklist: EGD: 1. Hiatal hernia: 2. H. Pylori: HgbA1c: Vitamin D: Smoking: Never smoker Primary care physician referral: Dr. Jose Francisco Jennings Psychiatry clearance: Cardiology clearance: Sleep study: Diet journal: VTE risk score: VTE risk level: Rehab needs at discharge:
== END | disposition home or self-care (01) ==
LOC: BARWHC3 13:03
PROVIDERS: ATTEND Surgery
DX: Z48.815 Encounter for surgical aftercare following surgery on the digestive system (principal); Z98.84 Bariatric surgery status; Z90.49 Acquired absence of other specified parts of digestive tract
CPT/HCPCS: 99211

== ENCOUNTER → 2020-01-28 | Outpatient (CLI) | payer BC ==
[2020-01-28 13:19] VITALS: BP 116/78; PULSE 67; RESP 16; TEMP 98; BMI 37.8
--- NOTE | 2020-02-01 07:58 | P.HPBAR ---
Bariatric H&P - History & Physicial H&P Date: 01/28/20 History & Physicial: Visit/CC: f/u Patient initial contact: Initial weight: 115.167 kg Initial weight in pounds: 253.90 Height: 5 ft 4 in Initial BMI: 43.5 Last weight: Current weight: 99.79 kg Current weight in pounds: 220.00 Current BMI: 37.8 [place] body weight (based on NIH guidelines): 54.431 kg Excess body weight loss: 25.3% The patient is a 49 year-old F who presents for Bariatric Assessment. Patient presents today for sleeve gastrectomy follow-up. She's had some mild GERD. She has lost another 11 pounds. Past Medical History Past Medical History: GERD/Reflux, Hyperlipidemia, Hypertension, Thyroid Disorder Additional Past Medical History / Comment(s): takes metformin to help w/weight loss History of Any Multi-Drug Resistant Organisms: None Reported Past Surgical History: Breast Surgery, Cholecystectomy, Orthopedic Surgery, Uterine Ablation Additional Past Surgical History / Comment(s): RT Rotator cuff surgery, laparoscopy r/t bilateral ovarian cysts, bilateral breast reduction Past Anesthesia/Blood Transfusion Reactions: Motion Sickness, Postoperative Nausea & Vomiting (PONV) Additional Past Anesthesia/Blood Transfusion Reaction / Comm: "hard to wake up" Past Psychological History: Depression Additional Psychological History / Comment(s): takes Lexapro Smoking Status: Unknown if ever smoked Past Alcohol Use History: Rare Past Drug Use History: None Reported - Past Family History Mother Family Medical History: No Reported History Father Family Medical History: Diabetes Mellitus, Hyperlipidemia, Hypertension Surgical - Exam Vital Signs Temp Pulse Resp BP 98 F 67 16 116/78 01/28/20 13:17 01/28/20 13:17 01/28/20 13:17 01/28/20 13:17 - General well developed, well nourished, no distress - Eyes PERRL - ENT normal pinna - Neck no masses - Respiratory normal expansion - Cardiovascular Rhythm: regular - Abdomen Abdomen: soft, non tender Bariatric Assessment & Plan Plan: Status post sleeve gastrectomy. Patient's been quite well. She will follow-up in 4 weeks. Her GERD is minimal only observed. Bariatric Checklist Checklist: Plan: Checklist: EGD: 1. Hiatal hernia: 2. H. Pylori: HgbA1c: Vitamin D: Smoking: Never smoker Primary care physician referral: Dr. Jose Francisco Jennings Psychiatry clearance: Cardiology clearance: Sleep study: Diet journal: VTE risk score: VTE risk level: Rehab needs at discharge:
== END | disposition home or self-care (01) ==
LOC: BARWHC3 12:54
PROVIDERS: ATTEND Surgery
DX: Z48.815 Encounter for surgical aftercare following surgery on the digestive system (principal); K21.9 Gastro-esophageal reflux disease without esophagitis; Z90.49 Acquired absence of other specified parts of digestive tract; Z98.890 Other specified postprocedural states
CPT/HCPCS: 99211

== ENCOUNTER → 2020-02-25 | Outpatient (CLI) | payer BC ==
[2020-02-25 13:17] VITALS: BP 125/71; PULSE 80; TEMP 98.2; BMI 36.2
[2020-02-25 15:01] LABS: HCT 43.4 % (34.0-46.0); HGB 14.3 gm/dL (11.4-16.0); MCH 31.7 pg (25.0-35.0); MCHC 32.9 g/dL (31.0-37.0); MCV 96.4 fL (80.0-100.0); Platelet Count 340 k/uL (150-450); RDW 13.7 % (11.5-15.5); WBC 13.7 k/uL (3.8-10.6)
--- NOTE | 2020-02-25 15:53 | P.HPBAR ---
Bariatric H&P - History & Physicial H&P Date: 02/25/20 History & Physicial: Visit/CC: six month follow up Patient initial contact: Initial weight: 115.167 kg Initial weight in pounds: 253.90 Height: 5 ft 4 in Initial BMI: 43.5 Last weight: Current weight: 95.708 kg Current weight in pounds: 211.00 Current BMI: 36.2 [place] body weight (based on NIH guidelines): 54.431 kg Excess body weight loss: 32.0% The patient is a 49 year-old F who presents for Bariatric Assessment. Patient presents today for sleeve gastrectomy fall. She has some mild GERD. She's doing well overall. Past Medical History Past Medical History: GERD/Reflux, Hyperlipidemia, Hypertension, Thyroid Disorder Additional Past Medical History / Comment(s): takes metformin to help w/weight loss History of Any Multi-Drug Resistant Organisms: None Reported Past Surgical History: Breast Surgery, Cholecystectomy, Orthopedic Surgery, Uterine Ablation Additional Past Surgical History / Comment(s): RT Rotator cuff surgery, laparoscopy r/t bilateral ovarian cysts, bilateral breast reduction Past Anesthesia/Blood Transfusion Reactions: Motion Sickness, Postoperative Nausea & Vomiting (PONV) Additional Past Anesthesia/Blood Transfusion Reaction / Comm: "hard to wake up" Past Psychological History: Depression Additional Psychological History / Comment(s): takes Lexapro Smoking Status: Never smoker, Unknown if ever smoked Past Alcohol Use History: Rare Past Drug Use History: None Reported - Past Family History Mother Family Medical History: No Reported History Father Family Medical History: Diabetes Mellitus, Hyperlipidemia, Hypertension Surgical - Exam Vital Signs Temp Pulse BP 98.2 F 80 125/71 02/25/20 13:14 02/25/20 13:14 02/25/20 13:14 - General well developed, well nourished, no distress - Eyes PERRL - ENT normal pinna - Neck no masses - Respiratory normal expansion - Cardiovascular Rhythm: regular - Abdomen Abdomen: soft, non tender Results - Labs 02/25/20 14:45 Abnormal Lab Results - Last 24 Hours (Table) 02/25/20 Range/Units 14:45 WBC 13.7 H (3.8-10.6) k/uL Bariatric Assessment & Plan Plan: Status post sleeve gastric. Patient's GERD is minimal will be observed she'll follow-up in 4 weeks. Bariatric Checklist Checklist: Plan: Checklist: EGD: 1. Hiatal hernia: 2. H. Pylori: HgbA1c: Vitamin D: Smoking: Never smoker Primary care physician referral: Dr. Jose Francisco Jennings Psychiatry clearance: Cardiology clearance: Sleep study: Diet journal: VTE risk score: VTE risk level: Rehab needs at discharge:
[2020-02-26 03:55] LABS: African American GFR (CKD) 122.3 (60.0-200.0); Albumin 4.1 g/dL (3.80-4.90); Albumin/Globulin Ratio 1.71 (1.60-3.17); Anion Gap 14.5 mmol/L (4.00-12.00); BUN/Creat Ratio 33.33 Ratio (12.00-20.00); Calcium 9.2 mg/dL (8.7-10.3); Carbon Dioxide 22.5 mmol/L (21.6-31.8); Globulin 2.4 g/dL (1.6-3.3); Non-African American GFR(CKD) 105.5 (60.0-200.0); Total Bilirubin 0.3 mg/dL (0.2-1.2); Total Protein 6.5 g/dL (6.2-8.2)
[2020-02-26 04:05] LABS: Folate, Serum 9.4 ng/mL
== END | disposition home or self-care (01) ==
LOC: BARWHC3 12:52
PROVIDERS: ATTEND Surgery
DX: Z48.815 Encounter for surgical aftercare following surgery on the digestive system (principal); E44.0 Moderate protein-calorie malnutrition; E55.9 Vitamin D deficiency, unspecified; E66.01 Morbid (severe) obesity due to excess calories; Z68.36 Body mass index [BMI] 36.0-36.9, adult; Z71.3 Dietary counseling and surveillance; Z98.84 Bariatric surgery status
CPT/HCPCS: 80053; 82306; 82607; 82746; 84425; 84443; 85027; 99211

== ENCOUNTER → 2020-04-28 | Outpatient (CLI) | payer BC ==
[2020-04-28 13:17] VITALS: BP 125/81; PULSE 67; RESP 16; TEMP 97.7; BMI 33.1
--- NOTE | 2020-05-12 11:41 | P.HPBAR ---
Bariatric H&P - History & Physicial H&P Date: 04/28/20 History & Physicial: Visit/CC: f/u Patient initial contact: Initial weight: 115.167 kg Initial weight in pounds: 253.90 Height: 5 ft 4 in Initial BMI: 43.5 Last weight: Current weight: 87.543 kg Current weight in pounds: 193.00 Current BMI: 33.1 [place] body weight (based on NIH guidelines): 54.431 kg Excess body weight loss: 45.4% The patient is a 50 year-old F who presents for Bariatric Assessment. Patient presents today for sleeve gastric fall. She feels well. She has lost 18 pounds her last visit. She's had some mild GERD. Past Medical History Past Medical History: GERD/Reflux, Hyperlipidemia, Hypertension, Thyroid Disorder Additional Past Medical History / Comment(s): takes metformin to help w/weight loss History of Any Multi-Drug Resistant Organisms: None Reported Past Surgical History: Breast Surgery, Cholecystectomy, Orthopedic Surgery, Uterine Ablation Additional Past Surgical History / Comment(s): RT Rotator cuff surgery, laparoscopy r/t bilateral ovarian cysts, bilateral breast reduction Past Anesthesia/Blood Transfusion Reactions: Motion Sickness, Postoperative Nausea & Vomiting (PONV) Additional Past Anesthesia/Blood Transfusion Reaction / Comm: "hard to wake up" Past Psychological History: Depression Additional Psychological History / Comment(s): takes Lexapro Smoking Status: Never smoker, Unknown if ever smoked Past Alcohol Use History: Rare Past Drug Use History: None Reported - Past Family History Mother Family Medical History: No Reported History Father Family Medical History: Diabetes Mellitus, Hyperlipidemia, Hypertension Surgical - Exam Vital Signs Temp Pulse Resp BP 97.7 F 67 16 125/81 04/28/20 13:15 04/28/20 13:15 04/28/20 13:15 04/28/20 13:15 - General well developed, well nourished, no distress - Eyes PERRL - ENT normal pinna - Neck no masses - Respiratory normal expansion - Cardiovascular Rhythm: regular - Abdomen Abdomen: soft, non tender Bariatric Assessment & Plan Plan: Status post sleeve yesterday. Patient is doing quite well. Her GERD is minimal abuse or potential follow-up in 4 weeks. Bariatric Checklist Checklist: Plan: Checklist: EGD: 1. Hiatal hernia: 2. H. Pylori: HgbA1c: Vitamin D: Smoking: Never smoker Primary care physician referral: Dr. Jose Francisco Jennings Psychiatry clearance: Cardiology clearance: Sleep study: Diet journal: VTE risk score: VTE risk level: Rehab needs at discharge:
== END | disposition home or self-care (01) ==
LOC: BARWHC3 13:05
PROVIDERS: ATTEND Surgery
DX: Z48.815 Encounter for surgical aftercare following surgery on the digestive system (principal); E66.01 Morbid (severe) obesity due to excess calories; K21.9 Gastro-esophageal reflux disease without esophagitis; Z90.49 Acquired absence of other specified parts of digestive tract; Z71.3 Dietary counseling and surveillance
CPT/HCPCS: 97803; 99211

== ENCOUNTER → 2020-06-23 | Outpatient (CLI) | payer BC ==
[2020-06-23 14:23] VITALS: BP 143/86; PULSE 96; RESP 18; TEMP 100.1; BMI 32.4
[2020-06-23 15:28] LABS: HCT 42.8 % (34.0-46.0); HGB 14.5 gm/dL (11.4-16.0); MCH 33.1 pg (25.0-35.0); MCHC 33.9 g/dL (31.0-37.0); MCV 97.6 fL (80.0-100.0); Mean Platelet Volume 7.4; Platelet Count 280 k/uL (150-450); RBC 4.38 m/uL (3.80-5.40); RDW 13.9 % (11.5-15.5); WBC 9.3 k/uL (3.8-10.6)
[2020-06-23 19:24] LABS: % Iron Saturation 42.59 (12.00-45.00); African American GFR (CKD) 121.5 (60.0-200.0); Albumin 4.2 g/dL (3.80-4.90); Albumin/Globulin Ratio 1.56 (1.60-3.17); Anion Gap 9.1 mmol/L (4.00-12.00); BUN/Creat Ratio 21.67 Ratio (12.00-20.00); Calcium 9.2 mg/dL (8.7-10.3); Carbon Dioxide 26.9 mmol/L (21.6-31.8); Globulin 2.7 g/dL (1.6-3.3); Magnesium 1.5 mg/dL (1.5-2.4); Non-African American GFR(CKD) 104.8 (60.0-200.0); Potassium 4.6 mmol/L (3.5-5.5); Total Bilirubin 0.6 mg/dL (0.2-1.2); Total Protein 6.9 g/dL (6.2-8.2)
[2020-06-23 19:31] LABS: Ferritin 193.9 ng/mL (10.0-291.0)
[2020-06-23 19:33] LABS: Folate, Serum 4.7 ng/mL
[2020-06-24 14:28] LABS: Zinc, Serum 55 ug/dL (60-130)
[2020-06-24 14:46] LABS: Vitamin A 53 ug/dL (38-106)
[2020-06-25 08:35] LABS: Vit B1(Thiamine) 78 ug/L (38-122)
[2020-06-25 23:39] LABS: Selenium 101 mcg/L (63-160)
--- NOTE | 2020-07-22 12:39 | P.HPBAR ---
Bariatric H&P - History & Physicial H&P Date: 06/23/20 History & Physicial: Visit/CC: follow up Patient initial contact: Initial weight: 115.167 kg Initial weight in pounds: 253.90 Height: 5 ft 4 in Initial BMI: 43.5 Last weight: Current weight: 85.729 kg Current weight in pounds: 189.00 Current BMI: 32.4 [place] body weight (based on NIH guidelines): 54.431 kg Excess body weight loss: 48.4% The patient is a 50 year-old F who presents for Bariatric Assessment. Patient presents today for sleeve gastrectomy fall. She's had some mild with GERD. Past Medical History Past Medical History: GERD/Reflux, Hyperlipidemia, Hypertension, Thyroid Disorder Additional Past Medical History / Comment(s): takes metformin to help w/weight loss History of Any Multi-Drug Resistant Organisms: None Reported Past Surgical History: Breast Surgery, Cholecystectomy, Orthopedic Surgery, Uterine Ablation Additional Past Surgical History / Comment(s): RT Rotator cuff surgery, laparoscopy r/t bilateral ovarian cysts, bilateral breast reduction Past Anesthesia/Blood Transfusion Reactions: Motion Sickness, Postoperative Nausea & Vomiting (PONV) Additional Past Anesthesia/Blood Transfusion Reaction / Comm: "hard to wake up" Past Psychological History: Depression Additional Psychological History / Comment(s): takes Lexapro Smoking Status: Never smoker, Unknown if ever smoked Past Alcohol Use History: Rare Past Drug Use History: None Reported - Past Family History Mother Family Medical History: No Reported History Father Family Medical History: Diabetes Mellitus, Hyperlipidemia, Hypertension Surgical - Exam Vital Signs Temp Pulse Resp BP 100.1 F H 96 18 143/86 06/23/20 14:20 06/23/20 14:20 06/23/20 14:20 06/23/20 14:20 - General well developed, well nourished, no distress - Eyes PERRL - ENT normal pinna - Neck no masses - Respiratory normal expansion - Cardiovascular Rhythm: regular - Abdomen Abdomen: non tender Results - Labs 06/23/20 14:30 06/23/20 14:30 Bariatric Assessment & Plan Plan: Status post gastric sleeve. Patient still quite well. Her GERD is minimal will be observed. Bariatric Checklist Checklist: Plan: Checklist: EGD: 1. Hiatal hernia: 2. H. Pylori: HgbA1c: Vitamin D: Smoking: Never smoker Primary care physician referral: Dr. Jose Francisco Jennings Psychiatry clearance: Cardiology clearance: Sleep study: Diet journal: VTE risk score: VTE risk level: Rehab needs at discharge:
== END ==
LOC: BARWHC3 13:24
PROVIDERS: ATTEND Surgery
DX: E66.01 Morbid (severe) obesity due to excess calories (principal); Z68.31 Body mass index [BMI] 31.0-31.9, adult; K21.9 Gastro-esophageal reflux disease without esophagitis; E78.5 Hyperlipidemia, unspecified; E07.9 Disorder of thyroid, unspecified; F32.9 Major depressive disorder, single episode, unspecified; D50.8 Other iron deficiency anemias; E55.9 Vitamin D deficiency, unspecified; T56.894A Toxic effect of other metals, undetermined, initial encounter; K90.9 Intestinal malabsorption, unspecified
CPT/HCPCS: 80053; 82306; 82607; 82728; 82746; 83540; 83550; 83735; 84255; 84425; 84443; 84590; 84630; 85027; 99211

== ENCOUNTER → 2020-08-18 | Outpatient (CLI) | payer BC ==
[2020-08-18 14:13] VITALS: BP 120/82; PULSE 73; RESP 18; TEMP 98.2; BMI 30.5
--- NOTE | 2020-08-26 12:36 | P.HPBAR ---
Bariatric H&P - History & Physicial H&P Date: 08/18/20 History & Physicial: Visit/CC: follow up / 1 year Patient initial contact: Initial weight: 115.167 kg Initial weight in pounds: 253.90 Height: 5 ft 4 in Initial BMI: 43.5 Last weight: Current weight: 80.739 kg Current weight in pounds: 178.00 Current BMI: 30.5 [place] body weight (based on NIH guidelines): 54.431 kg Excess body weight loss: 56.6% The patient is a 50 year-old F who presents for Bariatric Assessment. Patient presents today for sleeve gastrectomy follow-up. She's had some mild GERD. Past Medical History Past Medical History: GERD/Reflux, Hyperlipidemia, Hypertension, Thyroid Disorder Additional Past Medical History / Comment(s): takes metformin to help w/weight loss History of Any Multi-Drug Resistant Organisms: None Reported Past Surgical History: Breast Surgery, Cholecystectomy, Orthopedic Surgery, Uterine Ablation Additional Past Surgical History / Comment(s): RT Rotator cuff surgery, laparoscopy r/t bilateral ovarian cysts, bilateral breast reduction Past Anesthesia/Blood Transfusion Reactions: Motion Sickness, Postoperative [place] & Vomiting (PONV) Additional Past Anesthesia/Blood Transfusion Reaction / Comm: "hard to wake up" Past Psychological History: Depression Additional Psychological History / Comment(s): takes Lexapro Smoking Status: Never smoker, Unknown if ever smoked Past Alcohol Use History: Rare Past Drug Use History: None Reported - Past Family History Mother Family Medical History: No Reported History Father Family Medical History: Diabetes Mellitus, Hyperlipidemia, Hypertension Surgical - Exam Vital Signs Temp Pulse Resp BP 98.2 F 73 18 120/82 08/18/20 14:09 08/18/20 14:09 08/18/20 14:09 08/18/20 14:09 - General well developed, well nourished, no distress - Eyes PERRL - ENT normal pinna - Neck no masses - Respiratory normal expansion - Cardiovascular Rhythm: regular - Abdomen Abdomen: soft, non tender Bariatric Assessment & Plan Plan: Status post sleeve yesterday. Patient is an excellent weight loss. Her GERD is minimal be observed. She'll follow-up in 3 months. Bariatric Checklist Checklist: Plan: Checklist: EGD: 1. Hiatal hernia: 2. H. Pylori: HgbA1c: Vitamin D: Smoking: Never smoker Primary care physician referral: Dr. Jose Francisco Jennings Psychiatry clearance: Cardiology clearance: Sleep study: Diet journal: VTE risk score: VTE risk level: Rehab needs at discharge:
== END ==
LOC: BARWHC3 13:57
PROVIDERS: ATTEND Surgery
DX: Z09 Encounter for follow-up examination after completed treatment for conditions other than malignant neoplasm (principal); K21.9 Gastro-esophageal reflux disease without esophagitis; E78.5 Hyperlipidemia, unspecified; I10 Essential (primary) hypertension; F32.9 Major depressive disorder, single episode, unspecified; Z98.84 Bariatric surgery status; Z88.0 Allergy status to penicillin; Z91.040 Latex allergy status
CPT/HCPCS: 99211

== ENCOUNTER → 2020-09-22 | Outpatient (CLI) | payer BC, OTHER ==
[2020-09-22 14:15] VITALS: BP 121/84; PULSE 82; RESP 18; TEMP 98.1; BMI 30.2
[2020-09-22 14:44] LABS: HCT 46.5 % (34.0-46.0); HGB 14.7 gm/dL (11.4-16.0); MCH 32.1 pg (25.0-35.0); MCHC 31.5 g/dL (31.0-37.0); Macrocytosis Slight; Mean Platelet Volume 7.2; Platelet Count 305 k/uL (150-450); RBC 4.56 m/uL (3.80-5.40); RDW 13.4 % (11.5-15.5); WBC 11.2 k/uL (3.8-10.6)
--- NOTE | 2020-09-22 16:22 | P.HPBAR ---
Bariatric H&P - History & Physicial H&P Date: 09/22/20 History & Physicial: Visit/CC: follow up Patient initial contact: Initial weight: 115.167 kg Initial weight in pounds: 253.90 Height: 5 ft 4 in Initial BMI: 43.5 Last weight: Current weight: 79.832 kg Current weight in pounds: 176.00 Current BMI: 30.2 [place] body weight (based on NIH guidelines): 54.431 kg Excess body weight loss: 58.1% The patient is a 50 year-old F who presents for Bariatric Assessment. Patient presents today for sleeve gastric follow-up. She is doing quite well. She's had some mild GERD. Past Medical History Past Medical History: GERD/Reflux, Hyperlipidemia, Hypertension, Thyroid Disorder Additional Past Medical History / Comment(s): takes metformin to help w/weight loss History of Any Multi-Drug Resistant Organisms: None Reported Past Surgical History: Breast Surgery, Cholecystectomy, Orthopedic Surgery, Uterine Ablation Additional Past Surgical History / Comment(s): RT Rotator cuff surgery, laparoscopy r/t bilateral ovarian cysts, bilateral breast reduction Past Anesthesia/Blood Transfusion Reactions: Motion Sickness, Postoperative Nausea & Vomiting (PONV) Additional Past Anesthesia/Blood Transfusion Reaction / Comm: "hard to wake up" Past Psychological History: Depression Additional Psychological History / Comment(s): takes Lexapro Smoking Status: Never smoker, Unknown if ever smoked Past Alcohol Use History: Rare Past Drug Use History: None Reported - Past Family History Mother Family Medical History: No Reported History Father Family Medical History: Diabetes Mellitus, Hyperlipidemia, Hypertension Surgical - Exam Vital Signs Temp Pulse Resp BP 98.1 F 82 18 121/84 09/22/20 14:07 09/22/20 14:07 09/22/20 14:07 09/22/20 14:07 - General well developed, well nourished, no distress - Eyes PERRL - ENT normal pinna - Neck no masses - Respiratory normal expansion - Cardiovascular Rhythm: regular - Abdomen Abdomen: soft, non tender Results - Labs 09/22/20 14:12 Abnormal Lab Results - Last 24 Hours (Table) 09/22/20 Range/Units 14:12 WBC 11.2 H (3.8-10.6) k/uL Hct 46.5 H (34.0-46.0) % MCV 102.0 H (80.0-100.0) fL Bariatric Assessment & Plan Plan: Status post sleeve history. Patient's GERD is minimal and will be observed. She'll follow-up in 4 weeks. Bariatric Checklist Checklist: Plan: Checklist: EGD: 1. Hiatal hernia: 2. H. Pylori: HgbA1c: Vitamin D: Smoking: Never smoker Primary care physician referral: Dr. Jose Francisco Jennings Psychiatry clearance: Cardiology clearance: Sleep study: Diet journal: VTE risk score: VTE risk level: Rehab needs at discharge:
[2020-09-22 19:03] LABS: % Iron Saturation 32.01 (12.00-45.00); African American GFR (CKD) 121.5 (60.0-200.0); Albumin 4.4 g/dL (3.80-4.90); Albumin/Globulin Ratio 1.57 (1.60-3.17); Anion Gap 13.6 mmol/L (4.00-12.00); BUN/Creat Ratio 23.33 Ratio (12.00-20.00); Calcium 9.2 mg/dL (8.7-10.3); Carbon Dioxide 23.4 mmol/L (21.6-31.8); Globulin 2.8 g/dL (1.6-3.3); Magnesium 1.4 mg/dL (1.5-2.4); Non-African American GFR(CKD) 104.8 (60.0-200.0); Potassium 3.9 mmol/L (3.5-5.5); Total Bilirubin 0.4 mg/dL (0.2-1.2); Total Protein 7.2 g/dL (6.2-8.2)
[2020-09-22 19:12] LABS: Folate, Serum 5.5 ng/mL
[2020-09-22 19:43] LABS: Ferritin 310.4 ng/mL (10.0-291.0)
[2020-09-23 12:32] LABS: Zinc, Serum 95 ug/dL (60-130)
[2020-09-24 06:32] LABS: Vit B1(Thiamine) 54 ug/L (38-122); Vitamin A 58 ug/dL (38-106)
== END ==
LOC: BARWHC3 13:21
PROVIDERS: ATTEND Surgery
DX: Z09 Encounter for follow-up examination after completed treatment for conditions other than malignant neoplasm (principal); K21.9 Gastro-esophageal reflux disease without esophagitis; E78.5 Hyperlipidemia, unspecified; I10 Essential (primary) hypertension; F32.9 Major depressive disorder, single episode, unspecified; Z98.84 Bariatric surgery status; Z91.040 Latex allergy status; Z88.0 Allergy status to penicillin
CPT/HCPCS: 36415; 80053; 82306; 82607; 82728; 82746; 83540; 83550; 83735; 84255; 84425; 84443; 84590; 84630; 85027; 99211

== ENCOUNTER → 2021-03-11 | Outpatient (CLI) | payer OTHER ==
--- NOTE | 2021-03-13 11:39 | MM ---
Reason for exam: screening (asymptomatic). Last mammogram was performed 3 years and 4 months ago. History: Patient is postmenopausal and had first child at age 30. Reductions of both breasts, April 2007. Physical Findings: A clinical breast exam by your physician is recommended on an annual basis and results should be correlated with mammographic findings. MG 3D Screening Mammo W/Cad Bilateral CC and MLO view(s) were taken. XCCL view(s) were taken of the left breast. Prior study comparison: November 24, 2017, bilateral MG 3d screening mammo w/cad. January 08, 2013, [facility] DIGITAL BILATERAL MAMMOGRAM w/CAD. There are scattered fibroglandular densities. Medial oil cysts on the right. Left anterior upper outer quadrant focal asymmetry disperses on XCCL view. Dermal calcifications right breast. No significant changes when compared with prior studies. ASSESSMENT: Benign, BI-RAD 2 RECOMMENDATION: Routine screening mammogram of both breasts in 1 year.
== END | disposition home or self-care (01) ==
LOC: RADMAMWWP 15:51
PROVIDERS: ATTEND Obstetrics & Gynecology
DX: Z12.31 Encounter for screening mammogram for malignant neoplasm of breast (principal); Z78.0 Asymptomatic menopausal state
CPT/HCPCS: 77063; 77067

== ENCOUNTER → 2022-06-21 | Outpatient (CLI) | payer OTHER ==
[2022-06-21 13:49] VITALS: BP 150/83; PULSE 78; TEMP 98; BMI 26.1
--- NOTE | 2022-06-21 14:24 | P.HPBAR ---
Bariatric H&P - History & Physicial H&P Date: 06/21/22 History & Physicial: Visit/CC: sleeve F/U Patient initial contact: Initial weight: 115.167 kg Initial weight in pounds: 253.90 Height: 5 ft 4 in Initial BMI: 43.5 Last weight: Current weight: 68.946 kg Current weight in pounds: 152.00 Current BMI: 26.1 [place] body weight (based on NIH guidelines): 54.431 kg Excess body weight loss: 76.1% The patient is a 52 year-old F who presents for Bariatric Assessment.patient presents today for sleeve gastrectomy follow-up. She's had some minimal GERD. She is an excellent weight loss. Patient states he underwent previous EGD at [facility]. Patient's known to have a hiatal hernia. Patient is recentlycompleted rehab for alcohol abuse. Past Medical History Past Medical History: GERD/Reflux, Hyperlipidemia, Hypertension, Thyroid D isorder Additional Past Medical History / Comment(s): takes metformin to help w/weight loss History of Any Multi-Drug Resistant Organisms: None Reported Past Surgical History: Bariatric Surgery, Breast Surgery, Cholecystectomy, Orthopedic Surgery, Uterine Ablation Additional Past Surgical History / Comment(s): RT Rotator cuff surgery, laparoscopy r/t bilateral ovarian cysts, bilateral breast reduction. Sleeve [id number] Past Anesthesia/Blood Transfusion Reactions: Motion Sickness, Postoperative Nausea & Vomiting (PONV) Additional Past Anesthesia/Blood Transfusion Reaction / Comm: "hard to wake up" Past Psychological History: Depression Additional Psychological History / Comment(s): takes Lexapro Smoking Status: Never smoker, Unknown if ever smoked Past Alcohol Use History: Rare Past Drug Use History: None Reported - Past Family History Mother Family Medical History: No Reported History Father Family Medical History: Diabetes Mellitus, Hyperlipidemia, Hypertension Surgical - Exam Vital Signs Temp Pulse BP 98 F 78 150/83 06/21/22 13:44 06/21/22 13:44 06/21/22 13:44 - General well developed, well nourished, no distress - Eyes PERRL - ENT normal pinna - Neck no masses - Respiratory normal expansion - Abdomen Abdomen: soft, non tender Bariatric Assessment & Plan Plan: GERD, hiatal hernia. Patient be scheduled for esophagram. She'll follow-up after this is performed. Bariatric Checklist Checklist: Plan: Checklist: EGD: 1. Hiatal hernia: 2. H. Pylori: HgbA1c: Vitamin D: Smoking: Never smoker Primary care physician referral: Dr. Jose Francisco Jennings Psychiatry clearance: Cardiology clearance: Sleep study: Diet journal: VTE risk score: VTE risk level: Rehab needs at discharge:
--- NOTE | 2022-06-21 14:47 | FL ---
EXAMINATION TYPE: FL barium swallow DATE OF EXAM: 06/21/2022 CLINICAL HISTORY: Status post gastric sleeve Contrast: Omnipaque 350 50 mL The patient ingested contrast without difficulty or delay. Noted are postsurgical changes of gastric sleeve. There is no evidence for leak or obstruction. Contrast is noted within the duodenum. Ther e is gastroesophageal reflux noted during the course of the study to the upper chest level. IMPRESSION: Post-surgical change of gastric sleeve without evidence for obstruction or leak at this point in time. Gastroesophageal reflux as noted.
== END ==
LOC: BARWHC3 13:21
PROVIDERS: ATTEND Surgery
DX: E66.01 Morbid (severe) obesity due to excess calories (principal); R13.10 Dysphagia, unspecified; K21.9 Gastro-esophageal reflux disease without esophagitis; E78.5 Hyperlipidemia, unspecified; Z88.0 Allergy status to penicillin; Z91.040 Latex allergy status; I10 Essential (primary) hypertension; Z98.84 Bariatric surgery status; Z68.26 Body mass index [BMI] 26.0-26.9, adult
CPT/HCPCS: 74220; 99211

== ENCOUNTER → 2022-06-28 | Outpatient (CLI) | payer OTHER ==
[2022-06-28 13:40] VITALS: BP 119/83; PULSE 51; TEMP 98; BMI 25.9
--- NOTE | 2022-06-28 15:58 | P.HPBAR ---
Bariatric H&P - History & Physicial H&P Date: 06/28/22 History & Physicial: Visit/CC: xray F/U Patient initial contact: Initial weight: 115.167 kg Initial weight in pounds: 253.90 Height: 5 ft 4 in Initial BMI: 43.5 Last weight: Current weight: 68.492 kg Current weight in pounds: 151.00 Current BMI: 25.9 [place] body weight (based on NIH guidelines): 54.431 kg Excess body weight loss: 76.8% The patient is a 52 year-old F who presents for Bariatric Assessment. Patient presents today for bariatric follow-up. She had a recent esophagram shows evidence of reflux. Patient had an EGD performed at [facility] last year which showed a possible hiatal hernia. Patient states that her reflux symptoms. Past Medical History Past Medical History: GERD/Reflux, Hyperlipidemia, Hypertension, Thyroid Disorder Additional Past Medical History / Comment(s): takes metformin to help w/weight loss History of Any Multi-Drug Resistant Organisms: None Reported Past Surgical History: Bariatric Surgery, Breast Surgery, Cholecystectomy, Orthopedic Surgery, Uterine Ablation Additional Past Surgical History / Comment(s): RT Rotator cuff surgery, laparoscopy r/t bilateral ovarian cysts, bilateral breast reduction. Sleeve [id number] Past Anesthesia/Blood Transfusion Reactions: Motion Sickness, Postoperative [place] & Vomiting (PONV) Additional Past Anesthesia/Blood Transfusion Reaction / Comm: "hard to wake up" Past Psychological History: Depression Additional Psychological History / Comment(s): takes Lexapro Smoking Status: Never smoker, Unknown if ever smoked Past Alcohol Use History: Rare Past Drug Use History: None Reported - Past Family History Mother Family Medical History: No Reported History Father Family Medical History: Diabetes Mellitus, Hyperlipidemia, Hypertension Surgical - Exam Vital Signs Temp Pulse BP 98 F 51 L 119/83 06/28/22 13:37 06/28/22 13:37 06/28/22 13:37 - General well developed, well nourished, no distress - Eyes PERRL - ENT normal pinna - Neck no masses - Respiratory normal expansion - Cardiovascular Rhythm: regular - Abdomen Abdomen: soft, non tender Bariatric Assessment & Plan Plan: Patient has some diabetic GERD. She'll undergo EGD evaluate her hiatal hernia. Bariatric Checklist Checklist: Plan: Checklist: EGD: 1. Hiatal hernia: 2. H. Pylori: HgbA1c: Vitamin D: Smoking: Never smoker Primary care physician referral: Dr. Jose Francisco Jennings Psychiatry clearance: Cardiology clearance: Sleep study: Diet journal: VTE risk score: VTE risk level: Rehab needs at discharge:
== END ==
LOC: BARWHC3 12:46
PROVIDERS: ATTEND Surgery
DX: E66.01 Morbid (severe) obesity due to excess calories (principal); K21.9 Gastro-esophageal reflux disease without esophagitis; E78.5 Hyperlipidemia, unspecified; I10 Essential (primary) hypertension; Z68.25 Body mass index [BMI] 25.0-25.9, adult; Z91.040 Latex allergy status; Z88.0 Allergy status to penicillin
CPT/HCPCS: 99211

== ENCOUNTER 2022-07-19 13:07 | Day surgery (SDC) | payer OTHER ==
[2022-07-14 13:34] VITALS: BMI 25.4
[~2022-07-19 13:07] MED LIST changes: -DEXAMETHASONE SOD PHOSPHATE 10 MG/ML 1 ML VIAL IV ONE; -ENOXAPARIN 40 MG/0.4 ML SYRINGE SQ ONE; +LACTATED RINGERS 1,000 ML IV SCH; -LIDOCAINE 1% (10MG/ML) FOR IV START INTRADERMA PRN; -ONDANSETRON 4 MG/2 ML VIAL IVP ONE; -SCOPOLAMINE 1.5MG/72HR PATCH TRANSDERM ONE; -ceFAZolin 3 GM in SODIUM CHLORIDE 0.9% 100 ML IVPB ONE
[2022-07-19 13:57] VITALS: TEMP 97.8
[2022-07-19] MEDS ORDERED: LIDOCAINE 1% (10MG/ML) FOR IV START INTRADERMA ONE (14:01)
[2022-07-19] MEDS ORDERED: PROPOFOL 10 MG/ML 20 ML VIAL IV ONE (14:47)
[2022-07-19] MEDS ORDERED: LIDOCAINE 2% INJ 20 MG/ML (2 ML VIAL) ONE (14:47)
--- NOTE | 2022-07-19 14:51 | P.GSHP ---
History of Present Illness H&P Date: 07/19/22 Chief Complaint: GERD To 2-year-old female who second with GERD. Patient presents today for EGD. Past Medical History Past Medical History: GERD/Reflux, Hyperlipidemia, Hypertension, Thyroid Disorder Additional Past Medical History / Comment(s): HTN/CHOLESTROL UNDER CONTROL POST BARIATRIC SX History of Any Multi-Drug Resistant Organisms: None Reported Past Surgical History: Bariatric Surgery, Breast Surgery, Cholecystectomy, Orthopedic Surgery, Uterine Ablation Additional Past Surgical History / Comment(s): RT Rotator cuff surgery, laparoscopy r/t bilateral ovarian cysts, bilateral breast reduction. Sleeve [id number], EGD, COLONOSCOPY Past Anesthesia/Blood Transfusion Reactions: Motion Sickness, Postoperative Nausea & Vomiting (PONV) Additional Past Anesthesia/Blood Transfusion Reaction / Comment(s): "hard to wake up" Smoking Status: Never smoker - Past Family History Mother Family Medical History: No Reported History Father Family Medical History: Diabetes Mellitus, Hyperlipidemia, Hypertension Medications and Allergies Home Medications Medication Instructions Recorded Confirmed Type Multivitamins, Thera [Multivitamin 1 tab PO DAILY 08/16/19 07/19/22 History (formulary)] Naltrexone HCl 50 mg PO DAILY 06/21/22 07/19/22 History Omeprazole [PriLOSEC] 20 mg PO BID 06/21/22 07/19/22 History busPIRone HCl [Buspar] 15 mg PO BID 06/21/22 07/19/22 History traZODone HCL [Desyrel] 50 mg PO HS 06/21/22 07/19/22 History Escitalopram [Lexapro] 20 mg PO DAILY 07/14/22 07/19/22 History Estrogen,Con/M-Progest Acet 1 each PO DAILY 07/14/22 07/19/22 History [Prempro 0.3 mg-1.5 mg Tablet] Atorvastatin [Lipitor] 10 mg PO HS 07/19/22 07/19/22 History Allergies Allergy/AdvReac Type Severity Reaction Status Date / Time latex Allergy Rash/Hives, Verified 07/19/22 13:48 red skin, lip swelling Penicillins Allergy Unknown Verified 07/19/22 13:48 Childhood Surgical - Exam Vital Signs Temp Pulse Resp BP Pulse Ox 97.8 F 56 L 16 114/65 97 07/19/22 13:47 07/19/22 13:47 07/19/22 13:47 07/19/22 13:47 07/19/22 13:47 - General well developed, well nourished, no distress - Eyes PERRL - ENT normal pinna - Neck no masses - Respiratory normal expansion - Cardiovascular Rhythm: regular - Abdomen Abdomen: soft, non tender Assessment and Plan Assessment: GERD. We'll perform EGD.
--- NOTE | 2022-07-19 15:01 | P.OP ---
Date of Procedure: 07/19/22 Preoperative Diagnosis: GERD Postoperative Diagnosis: Antral gastritis Esophagitis Procedure(s) Performed: EGD Anesthesia: MAC Surgeon: Harrison Corona Pathology: other (Antrum, esophagus) Condition: stable Disposition: PACU Description of Procedure: Patient's placed on the endoscopy table in the lateral position. She received IV sedation. The gastroscope was placed oropharynx/oropharynx passed in the esophagus into the stomach. Scope was placed through the pylorus. The first and second portion of the duodenum appeared normal. Scope was then brought back the antrum and this appeared minimally inflamed. A biopsies performed. Scope was then brought back. Patient had a mature gastric sleeve. GE junction was at 40 cm per the distal esophagus appeared inflamed. Evidence of significant esophagitis. A biopsies performed. The proximal esophagus appeared normal. Scope withdrawn for patient.
[2022-07-19 15:15] VITALS: BP 127/80; PULSE 68; RESP 16
== END 2022-07-19 15:44 | disposition home or self-care (01) ==
LOC: ORWHC2ENDO 13:07
PROVIDERS: ATTEND Surgery
DX: K29.50 Unspecified chronic gastritis without bleeding (principal); K21.00 Gastro-esophageal reflux disease with esophagitis, without bleeding; E78.5 Hyperlipidemia, unspecified; I10 Essential (primary) hypertension; E07.9 Disorder of thyroid, unspecified; K91.0 Vomiting following gastrointestinal surgery; Z83.3 Family history of diabetes mellitus; Z82.49 Family history of ischemic heart disease and other diseases of the circulatory system; Z83.49 Family history of other endocrine, nutritional and metabolic diseases; Z98.84 Bariatric surgery status; Z98.82 Breast implant status; Z90.49 Acquired absence of other specified parts of digestive tract; Z98.890 Other specified postprocedural states; Z79.890 Hormone replacement therapy; Z79.899 Other long term (current) drug therapy; Z91.040 Latex allergy status; Z88.0 Allergy status to penicillin
CPT/HCPCS: 88305; 43239; J2704; J2001

== ENCOUNTER → 2022-08-18 | Outpatient (CLI) | payer OTHER ==
[2022-08-18 20:52] LABS: Basophils # (A) 0.09 X 10*3/uL (0.00-0.10); Eosinophils # (A) 0.03 X 10*3/uL (0.04-0.35); Eosinophils % (A) 0.3 %; HCT 38.9 % (37.2-46.3); HGB 12.4 d/dL (12.0-15.0); Lymphocytes # (A) 3.32 X 10*3/uL (0.90-5.00); Lymphocytes % (A) 36.4 %; MCH 29.8 pg (27.0-32.0); MCHC 31.9 d/dL (32.0-37.0); MCV 93.5 FL (80.0-97.0); Mean Platelet Volume 10.6 FL (9.5-12.2); Monocytes # (A) 0.65 X 10*3/uL (0.20-1.00); Monocytes % (A) 7.1 %; NRBC Per 100 WBC 0 X 10*3/uL (0.00-0.01); Neutrophils # (A) 5.01 X 10*3/uL (1.80-7.70); Platelet Count 349 X 10*3/uL (140-440); RBC 4.16 X 10*6/uL (4.10-5.20); RDW 13.2 % (11.5-14.5); WBC 9.12 X 10*3/uL (4.50-10.00)
== END | disposition home or self-care (01) ==
LOC: LABPAT 15:25
PROVIDERS: ATTEND Surgery
DX: Z01.812 Encounter for preprocedural laboratory examination (principal)
CPT/HCPCS: 85025

== ENCOUNTER 2022-08-23 09:10 | Inpatient (IN) | payer OTHER ==
[~2022-08-23 09:10] MED LIST changes: +ACETAMINOPHEN TAB 500 MG TAB PO PRN; +HEPARIN SODIUM,PORCINE/PF 5,000 UNIT/0.5 ML SYRINGE SQ PRN; -LACTATED RINGERS 1,000 ML IV SCH
[2022-08-23] MEDS ORDERED: LACTATED RINGERS 1,000 ML IV ONE ×2 (10:26→13:00)
[2022-08-23] MEDS ORDERED: DEXAMETHASONE SOD PHOSPHATE 4 MG/ML 1 ML VIAL IVP ONE (10:31)
[2022-08-23] MEDS ORDERED: SCOPOLAMINE 1 MG/72 HR PATCH TRANSDERM ONE (10:37)
[2022-08-23 11:01] LABS: ALT 15 U/L (4-34); AST 23 U/L (14-36); African American GFR (CKD) >90 (>60 ml/min/1.73 sqM); Albumin 3.7 g/dL (3.5-5.0); Alkaline Phosphatase 45 U/L (38-126); Anion Gap 4 mmol/L; Blood Urea Nitrogen 13 mg/dL (7-17); Calcium 8.8 mg/dL (8.4-10.2); Carbon Dioxide 25 mmol/L (22-30); Chloride 109 mmol/L (98-107); Glucose 87 mg/dL (74-99); Non-African American GFR(CKD) >90 (>60 ml/min/1.73 sqM); Potassium 4.4 mmol/L (3.5-5.1); Sodium 138 mmol/L (137-145); Total Bilirubin 0.5 mg/dL (0.2-1.3); Total Protein 6.3 g/dL (6.3-8.2)
[2022-08-23] MEDS ORDERED: MIDAZOLAM 2 MG/2 ML VIAL IV ONE (11:29)
[2022-08-23] MEDS ORDERED: HEPARIN SODIUM,PORCINE 5,000 UNIT/ML 1 ML VIAL SQ ONE (11:48)
[2022-08-23] MEDS ORDERED: BUPIVACAINE (PF) 0.25% 30 ML VIAL SQ ONE ×2 (11:59→12:38)
[2022-08-23] MEDS ORDERED: SUCCINYLCHOLINE CHLORIDE 200 MG/10 ML VIAL IV ONE (12:05)
[2022-08-23] MEDS ORDERED: LIDOCAINE 2% INJ 20 MG/ML (2 ML VIAL) ONE (12:05)
[2022-08-23] MEDS ORDERED: KETOROLAC 15 MG/ML 1 ML VIAL ONE (12:05)
[2022-08-23] MEDS ORDERED: fentaNYL (PF) 50 MCG/ML 2 ML AMP ONE (12:05)
[2022-08-23] MEDS ORDERED: PROPOFOL 10 MG/ML 20 ML VIAL IV ONE (12:05)
[2022-08-23] MEDS ORDERED: HYDROmorphone (PF) 1 MG/ML ONE (12:05)
[2022-08-23] MEDS ORDERED: MIDAZOLAM 2 MG/2 ML VIAL ONE (12:05)
[2022-08-23] MEDS ORDERED: GLYCOPYRROLATE 0.2 MG/ML 2 ML VIAL ONE (12:05)
[2022-08-23] MEDS ORDERED: HYDROmorphone 1 MG/ML 1 ML SYRINGE IVP PRN (13:11)
[2022-08-23] MEDS ORDERED: MEPERIDINE 50 MG/ML SYRINGE IVP ONE ×2 (13:16→13:34)
[2022-08-23] MEDS: ONDANSETRON 4 MG/2 ML VIAL IVP PRN ×2 (13:48→18:01)
[2022-08-23] MEDS ORDERED: droPERidol 5 MG/2 ML VIAL IVP ONE (14:15)
[2022-08-23] MEDS ORDERED: HYDROmorphone 0.5 MG/0.5 ML SYRINGE IVP ONE (14:32)
[2022-08-23] MEDS: D5-0.45% NACL WITH KCL 20MEQ/L 1,000 ML IV SCH (16:15)
[2022-08-23] MEDS: METOCLOPRAMIDE 5 MG/ML 2 ML VIAL IVP PRN (21:16)
[2022-08-24] MEDS: D5-0.45% NACL WITH KCL 20MEQ/L 1,000 ML IV SCH ×2 (01:00→13:04)
--- NOTE | 2022-08-24 07:39 | P.OP ---
Date of Procedure: 08/23/22 Preoperative Diagnosis: Hiatal hernia Postoperative Diagnosis: Hiatal hernia Procedure(s) Performed: Laparoscopic repair of hiatal hernia Transversus abdominis plane block Anesthesia: KYLAH Surgeon: Harrison Corona Estimated Blood Loss (ml): 10 Pathology: none sent Condition: stable Disposition: PACU Description of Procedure: The patient was placed on the operating table in the supine position. The patient received general anesthesia. And was placed in dorsal lithotomy position. The patient was prepped and draped in the usual sterile fashion. The skin incision sites were anesthetized with 1% local Xylocaine. The skin was incised in the left periumbilical area and then using a blade less 5 mm trocar under direct visualization panel cavity was entered. After adequate insufflation the laparoscope was then placed into the peritoneal cavity. Next a 5 mm trochars placed in the right epigastric position. Another 5 millimeter trocar the right lateral position. Another 5 millimeter trocar in the left lateral position a 5 mm trocar is placed in the left epigastric position. And then the initial 5 mm trocar was exchanged for a 10 mm trocar. A four-quadrant transversus abdominis plane block was then performed with 1% local Xylocaine. The left lateral lobe liver was retracted. The hiatal hernia was seen. The crural defect was then dissected using the Harmonic scissors device. A 360 crural dissection was performed the esophagus stomach was reduced back into the peritoneal Cavity. The crural defect was then closed using 2-0 Ethibond suture. The patient had a previous sleeve gastrectomy. There was no abnormality the sleeve visualized. The abdomen was irrigated there is no bleeding seen. The trochars were then withdrawn and then skin incision sites were closed using 3-0 Monocryl suture Steri-Strips are applied. Patient thought procedure well and sent to recovery room in stable condition.
[2022-08-24] MEDS: ESCITALOPRAM 20 MG TAB PO SCH (08:12)
[2022-08-24] MEDS: busPIRone HCl 5 MG TAB PO SCH ×2 (08:12→21:00)
[2022-08-24] MEDS ORDERED: FUROSEMIDE 10 MG/ML 4 ML VIAL IV STA (08:17)
--- NOTE | 2022-08-24 08:36 | XR ---
EXAMINATION TYPE: XR chest 1V portable DATE OF EXAM: 08/24/2022 COMPARISON: 06/30/1959 HISTORY: Shortness of breath TECHNIQUE: Single frontal view of the chest is obtained. FINDINGS: There is a diffuse interstitial pattern. No sizable pleural effusion or pneumothorax. Hear t size normal. Diffuse osteopenia. Atherosclerotic change aorta. Patchy left upper lobe attenuation. IMPRESSION: 1. Correlate for interstitial pneumonitis or mild venous congestion. Patchy left suprahilar area of e edgar infiltrate in the differential diagnosis.
[2022-08-24] MEDS ORDERED: NON FORMULARY DRUG (Estrogen,Con/M-Progest Acet [Prempro 0.3 Mg-1.5 Mg Tablet] 1 EACH Tabl PO SCH (09:00)
[2022-08-24] MEDS ORDERED: NALTREXONE HCL 50 MG TAB PO SCH (09:00)
[2022-08-24] MEDS: HYDROcodone/APAP 5-325MG 1 EACH TAB PO PRN (10:49)
[2022-08-24] MEDS: METOCLOPRAMIDE 5 MG/ML 2 ML VIAL IVP PRN (10:50)
[2022-08-24 11:16] VITALS: BMI 26.5
[2022-08-24 12:20] LABS: Basophils % (A) 0 %; Eosinophils % (A) 0 %; HCT 40.8 % (34.0-46.0); HGB 13.4 gm/dL (11.4-16.0); Lymphocytes # (A) 1.7 k/uL (1.0-4.8); Lymphocytes % (A) 8 %; MCH 29.8 pg (25.0-35.0); MCHC 32.8 g/dL (31.0-37.0); MCV 91.1 fL (80.0-100.0); Mean Platelet Volume 8.3; Monocytes # (A) 1.3 k/uL (0-1.0); Monocytes % (A) 7 %; Neutrophils # (A) 16.9 k/uL (1.3-7.7); Neutrophils % (A) 83 %; Platelet Count 392 k/uL (150-450); RBC 4.48 m/uL (3.80-5.40); WBC 20.4 k/uL (3.8-10.6)
--- NOTE | 2022-08-24 13:35 | P.PN ---
Subjective Progress Note Date: 08/24/22 CHIEF COMPLAINT: Hiatal hernia HISTORY OF PRESENT ILLNESS: Patient is postop day #1 status post laparoscopic repair of hiatal hernia. Patient does complain of some some abdominal pain. And nausea. She has been short of breath and coughing. She had decrease in her oxygen saturation and did required replaced on 4 L of oxygen. She did receive a dose of IV Lasix for fluid overload and her fluids have been KVO. Oxygen requirements are down to 2 L. Chest x-ray report states correlate for interstitial pneumonitis or mild venous congestion. Patchy left suprahilar area of early infiltrate in the differential diagnosis. WBC is up at 20.4 hemoglobin 13.4 platelets 392 sodium 138 potassium 4.4 creatinine 0.73 Patient seen and examined with Dr. Corona PHYSICAL EXAM: VITAL SIGNS: Reviewed. GENERAL: Well-developed. Coughing during exam ABDOMEN: Soft. Nondistended. Mild tenderness at incision sites. Mild bruising noted around incision sites. NEUROLOGIC: Alert and oriented. Cranial nerves II through XII grossly intact. ASSESSMENT: 1. Hiatal hernia status post laparoscopic repair of hiatal hernia 2. Leukocytosis 3. Possible interstitial pneumonitis or mild venous congestion noted on chest PLAN: -Agree with adding antibiotics -Encourage patient to ambulate -Encourage patient to sit up in chair -Encourage patient to use incentive spirometer -Repeat CBC in a.m. -Continue Milind clear liquid diet -Add [place] for pain -Continue antiemetics -DVT prophylaxis subcu heparin Physician Cloth Laminating Supervisor note has been reviewed by physician. Signing provider agrees with the documented findings, assessment, and plan of care. Objective - Vital Signs Vital signs: Vital Signs Temp 98.4 F 08/24/22 08:00 Pulse 86 08/24/22 08:00 Resp 26 H 08/24/22 08:00 BP 134/87 08/24/22 08:00 Pulse Ox 90 L 08/24/22 08:00 FiO2 Intake & Output 08/23/22 08/24/22 08/24/22 18:59 06:59 18:59 Intake Total 1700 250 Output Total 10 Balance 1690 250 Weight 70.2 kg Intake: IV 1700 Oral 250 Output: Estimated Blood Loss 10 Other: Voiding Method Toilet - Labs CBC & Chem 7: 08/24/22 11:44 08/23/22 10:35
[2022-08-24] MEDS ORDERED: ALPRAZolam 0.25 MG TAB PO STA (15:00)
[2022-08-24] MEDS: PIPERACILLIN-TAZOBACTAM 3.375 GM in SODIUM CHLORIDE 0.9% 100 ML IVPB SCH ×2 (16:24→23:14)
[2022-08-24] MEDS: IOPAMIDOL CONTRAST (ORAL USE) VIAL PO PRN ×2 (17:02→18:00)
--- NOTE | 2022-08-24 18:59 | CT ---
EXAMINATION TYPE: CT angio chest CT DLP: 323.3 mGycm, Automated exposure control for dose reduction was used. DATE OF EXAM: 08/24/2022 6:51 PM COMPARISON: 08/24/2022 CLINICAL INDICATION:Female, 52 years old with history of hypoxia, shortness of breath; SOB and cough post hernia repair TECHNIQUE/CONTRAST: CTA scan of the thorax is performed with IV Contrast, patient injected with 100 mL of Isovue 370, pul monary embolism protocol. MIP images are created and reviewed these are created on a separate workst atIntrinsity.. FINDINGS: Pulmonary Artery: There is no evidence for a filling defect within the pulmonary vasculature to sugge st acute pulmonary embolism. The pulmonary artery is enlarged measuring up to 3.5 cm.. Lungs/Pleura: There are small bilateral pleural effusions. Patchy perihilar groundglass opacities whi ch are somewhat more anteriorly located. Airway: Large airways are patent. Heart: Mildly enlarged for size. Vasculature: No evidence of aortic aneurysm. Mediastinum: No gross evidence of adenopathy. Musculoskeletal: No acute osseous abnormalities Soft Tissues: Unremarkable. Lower neck: No significant findings. IMPRESSION: 1. No evidence of pulmonary embolism. 2. Cardiomegaly with bilateral pleural effusions with groundglass passive these correlate for pulmona ry edema.
--- NOTE | 2022-08-24 19:05 | CT ---
EXAMINATION TYPE: CT abdomen pelvis w con CT DLP: 822.7 mGycm, Automated exposure control for dose reduction was used. DATE OF EXAM: 08/24/2022 6:51 PM COMPARISON: CT abdomen pelvis most recent from 09/23/2015 CLINICAL INDICATION:Female, 52 years old with history of hypoxia, recent hiatal hernia repair; hypoxi c post hernia repair TECHNIQUE: Axial CT of the abdomen and pelvis. Sagittal and coronal reformats were created on a [employer] workstation. Contrast used:100 mL of Isovue 370 with IV Contrast, Oral contrast used: with Oral Contrast FINDINGS: ABDOMEN LIVER: Unremarkable GALLBLADDER AND BILE DUCTS: Unremarkable. PANCREAS: Unremarkable. SPLEEN: Unremarkable. ADRENAL GLANDS: Unremarkable. KIDNEYS AND URETERS: No evidence of hydronephrosis or renal calculus. The ureters are unremarkable. PELVIS BLADDER: Unremarkable REPRODUCTIVE: Unremarkable. ABDOMEN & PELVIS STOMACH AND BOWEL: No evidence of bowel obstruction. Post hernia repair changes. Oral contrast is pre sent. No evidence of extravasation of oral contrast from the esophagus stomach or other portions of t he bowel. There is multiple surgical clips in the gastroesophageal junction. Surgical clips in the an terior abdomen superiorly. The appendix is normal. PERITONEUM/RETROPERITONEUM: Foci of pneumoperitoneum within the upper abdomen. Subcutaneous gas withi n the abdominal subcutaneous tissues as well as the left abdominal wall. VASCULATURE: No evidence of aortic aneurysm. MUSCULOSKELETAL: No acute osseous abnormalities LYMPH NODES: No gross evidence for lymphadenopathy. SOFT TISSUE/ABDOMINAL WALL: A cutaneous gas within the left anterior upper quadrant compatible with r ecent history of surgery as well as the abdominal musculature of the anterior abdominal wall. IMPRESSION: Postsurgical changes with pneumoperitoneum, gas within the abdominal wall subcutaneous tissues, and l eft abdominal wall musculature. Oral contrast within the esophagus and stomach without evidence for e xtravasation. Surgical clips/sutures are in the upper quadrant at the gastroesophageal junction. No o rganizing fluid collection visualized.
[2022-08-24] MEDS ORDERED: ALPRAZolam 0.25 MG TAB PO PRN (20:31)
[2022-08-24] MEDS ORDERED: FUROSEMIDE 10 MG/ML 2 ML VIAL IV ONE (20:32)
--- NOTE | 2022-08-24 20:50 | P.CONS ---
History of Present Illness - Reason for Consult Consult date: 08/24/22 Medical management Requesting physician: Harrison Corona - Chief Complaint Shortness of breath status post hiatal hernia repair - History of Present Illness This a 52-year-old female with past medical history significant for gastroesophageal reflux disease, hypertension, hyperlipidemia, hypothyroidism, depression, laparoscopic sleeve gastrectomy and multiple other medical issues status post laparoscopic hiatal hernia repair, upon awakening, hypoxic, staff reports O2 sat down into the 80s, requiring 4 L of nasal cannula O2 to maintain O2 sats in the 90s. Stat chest x-ray ordered. Lasix IV push 1 for fluid overload after chest x-ray obtained, and IV fluids were pivl'd. AFebrile, WBC 20.4. Hemoglobin 13.4, platelets 392, Renal function stable. Review of Systems ROS Statement: Those systems with pertinent positive or pertinent negative responses have been documented in the HPI. ROS Other: All systems not noted in ROS Statement are negative. Past Medical History Past Medical History: GERD/Reflux, Hyperlipidemia, Hypertension, Thyroid Disorder Additional Past Medical History / Comment(s): HTN/CHOLESTROL UNDER CONTROL POST BARIATRIC SURGERY. History of Any Multi-Drug Resistant Organisms: None Reported Past Surgical History: Bariatric Surgery, Breast Surgery, Cholecystectomy, O rthopedic Surgery, Uterine Ablation Additional Past Surgical History / Comment(s): Right rotator cuff surgery, laparoscopy r/t bilateral ovarian cysts, bilateral breast reduction, sleeve gastrectomy 08-21-19, EGD X2, COLONOSCOPY. Past Anesthesia/Blood Transfusion Reactions: Motion Sickness, Postoperative Nausea & Vomiting (PONV) Additional Past Anesthesia/Blood Transfusion Reaction / Comm: "=Hard to wake up." Past Psychological History: Depression Additional Psychological History / Comment(s): takes Lexapro Smoking Status: Never smoker Past Alcohol Use History: Rare Past Drug Use History: None Reported - Past Family History Mother Family Medical History: No Reported History Father Family Medical History: Diabetes Mellitus, Hyperlipidemia, Hypertension Medications and Allergies Home Medications Medication Instructions Recorded Confirmed Type Naltrexone HCl 50 mg PO QAM 06/21/22 08/23/22 History Omeprazole [PriLOSEC] 20 mg PO BID 06/21/22 08/18/22 History busPIRone HCl [Buspar] 15 mg PO BID 06/21/22 08/18/22 History traZODone HCL [Desyrel] 50 mg PO HS 06/21/22 08/18/22 History Escitalopram [Lexapro] 20 mg PO QAM 07/14/22 08/23/22 History Estrogen,Con/M-Progest Acet 1 each PO DAILY 07/14/22 08/18/22 History [Prempro 0.3 mg-1.5 mg Tablet] Atorvastatin [Lipitor] 10 mg PO HS 07/19/22 08/18/22 History Allergies Allergy/AdvReac Type Severity Reaction Status Date / Time latex Allergy Rash/Hives, Verified 08/23/22 10:06 red skin, lip swelling Penicillins Allergy Unknown Verified 08/23/22 10:06 Childhood Physical Exam Vitals: Vital Signs Temp Pulse Resp BP BP Pulse Ox 08/24/22 14:02 93 L 08/24/22 14:00 97.9 F 96 32 H 117/86 89 L 08/24/22 08:00 98.4 F 86 26 H 134/87 90 L 08/24/22 07:21 22 91 L 08/24/22 02:00 98.0 F 67 16 134/77 96 08/23/22 20:45 17 Intake and Output 08/24/22 08/24/22 08/24/22 06:59 14:59 22:59 Intake Total 490 Balance 490 Intake: Oral 490 Other: # Voids 1 1 Weight 70.2 kg PHYSICAL EXAM: VITAL SIGNS: As above GENERAL: Sitting up in bed, respiratory effort increased, anxious HEENT: Normocephalic, Conjunctivae normal. eyes normal. NECK: Supple, No JVD. No thyroid enlargement. No LNs CARDIOVASCULAR: S1, S2 regular. No murmur RESPIRATION: Equal air entry with Bibasilar crackles. ABDOMEN: Soft, status post surgery, lap sites ecchymotic,No guarding .Bowel sounds heard. LEGS: No edema. no swelling PSYCHIATRY: Alert and oriented X3, mood and affect normal. NERVOUS SYSTEM: Cranial N 2-12 grossly normal. No focal deficits. Strength and sensation grossly intact.. Skin: Warm and dry, no rash Results CBC & Chem 7: 08/24/22 11:44 08/23/22 10:35 Labs: Abnormal Lab Results - Last 24 Hours (Table) 08/24/22 Range/Units 11:44 WBC 20.4 H (3.8-10.6) k/uL Neutrophils # 16.9 H (1.3-7.7) k/uL Monocytes # 1.3 H (0-1.0) k/uL Assessment and Plan Assessment: Hiatal hernia status post laparoscopic repair, bradycardic prior to procedure. Leukocytosis secondary to the above Postoperative fluid overload, IV push Lasix administered. Hypoxic respiratory failure postoperatively secondary to the above Chest x-ray reporting possible interstitial pneumonitis, or mild venous congestion, empiric antibiotics added to med regimen Gastroesophageal reflux disease History of laparoscopic sleeve gastrectomy Hyperlipidemia Hypertension Hypothyroidism Depression Plan: Continue on current medication regime ,monitoring and symptomatic treatment. 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 Aggressive pulmonary toileting. Close monitoring of patient's respiratory status. The impression and plan of care has been dictated as directed. : I performed a history and examination of this patient, discussed the same with the dictator. I agree with the dictator's note ,documented as a scribe. Any additional findings or plans will be noted.
[2022-08-24] MEDS: HEPARIN SODIUM,PORCINE/PF 5,000 UNIT/0.5 ML SYRINGE SQ SCH (21:00)
[2022-08-24] MEDS: traZODone HCL 50 MG TAB PO SCH (21:00)
[2022-08-24] MEDS: ATORVASTATIN 10 MG TAB PO SCH (21:00)
[2022-08-25] MEDS: FUROSEMIDE 10 MG/ML 4 ML VIAL IV SCH ×2 (00:12→12:33)
--- NOTE | 2022-08-25 01:39 | P.CNPUL ---
History of Present Illness Consult date: 08/25/22 Requesting physician: Sunita Christopher Reason for consult: dyspnea Chief complaint: Shortness of breath following elective hiatal hernia repair History of present illness: I am seeing this patient in new consultation today 08/25/2022 on the cardiac stepdown unit status post operative day #1 for an elective laparoscopic repair of hiatal hernia. Patient is a 52-year-old white female with past medical history significant for hiatal hernia, GERD, hyperlipidemia, cholecystectomy, prior gastric sleeve, depression. The procedure was reportedly completed without complications. Following the procedure, the patient developed acute shortness of breath and hypoxia. No reported episodes of nausea, vomiting, aspiration. Chest x-ray indicated diffuse interstitial infiltrates indicating possible pulmonary vascular congestion versus interstitial pneumonitis. The patient was empirically started on Zosyn. A follow-up chest CTA showed no evidence of pulmonary embolism. It did show cardiomegaly with bilateral pleural effusions and perihilar groundglass opacities correlating for possible pulmonary edema. NT proBNP was significantly elevated at 18,900. The patient has been given 2 doses of Lasix so far today. She reports good urine output, however, this has not been recorded. There is an echocardiogram scheduled for the morning. She is currently resting in bed, on 12 L high flow nasal cannula, in no significant distress. She denies any chest pain, heart palpitations, lower extremity swelling, orthopnea, PND. ECG shows no obvious evidence of acute ischemic event. She does have a occasional nonproductive cough. No fevers. Initial CBC shows a WBC count of 20.4, hemoglobin 13.4, hematocrit 40.8, platelets 392. BMP was unremarkable. Vital signs are stable. Review of Systems REVIEW OF SYSTEMS: CONSTITUTIONAL: Denies any recent significant weight loss or weight gain. EYES: Denies change in vision. EARS, NOSE, MOUTH, THROAT: Denies headaches, denies sore throat. CARDIOVASCULAR: Denies chest pain, palpitations or syncopal episodes. RESPIRATORY: Denies congestion or hemoptysis. Admits shortness of breath and occasional nonproductive cough. GASTROINTESTINAL: Denies change in appetite, abdominal pain, nausea and vomiting, or diarrhea GENITOURINARY: Denies hematuria, denies infections. MUSKULOSKELETAL: Denies pain, denies swelling. INTEGUMENTARY: Denies rash, denies eczema. NEUROLOGICAL: Denies recent memory loss, no recent seizure activity. PSYCHIATRIC: Denies anxiety. Admits depression. Denies suicidal ideation HEMATOLOGIC/LYMPHATIC: Denies anemia, denies enlarged lymph node Past Medical History Past Medical History: GERD/Reflux, Hyperlipidemia, Hypertension, Thyroid Disorder Additional Past Medical History / Comment(s): HTN/CHOLESTROL UNDER CONTROL POST BARIATRIC SURGERY. History of Any Multi-Drug Resistant Organisms: None Reported Past Surgical History: Bariatric Surgery, Breast Surgery, Cholecystectomy, Orthopedic Surgery, Uterine Ablation Additional Past Surgical History / Comment(s): Right rotator cuff surgery, laparoscopy r/t bilateral ovarian cysts, bilateral breast reduction, sleeve gastrectomy 08-21-19, EGD X2, COLONOSCOPY. Past Anesthesia/Blood Transfusion Reactions: Motion Sickness, Postoperative Nausea & Vomiting (PONV) Additional Past Anesthesia/Blood Transfusion Reaction / Comment(s): "=Hard to wake up." Past Psychological History: Depression Additional Psychological History / Comment(s): takes Lexapro Smoking Status: Never smoker Past Alcohol Use History: Rare Past Drug Use History: None Reported - Past Family History Mother Family Medical History: No Reported History Father Family Medical History: Diabetes Mellitus, Hyperlipidemia, Hypertension Medications and Allergies Home Medications Medication Instructions Recorded Confirmed Type Naltrexone HCl 50 mg PO QAM 06/21/22 08/23/22 History Omeprazole [PriLOSEC] 20 mg PO BID 06/21/22 08/18/22 History busPIRone HCl [Buspar] 15 mg PO BID 06/21/22 08/18/22 History traZODone HCL [Desyrel] 50 mg PO HS 06/21/22 08/18/22 History Escitalopram [Lexapro] 20 mg PO QAM 07/14/22 08/23/22 History Estrogen,Con/M-Progest Acet 1 each PO DAILY 07/14/22 08/18/22 History [Prempro 0.3 mg-1.5 mg Tablet] Atorvastatin [Lipitor] 10 mg PO HS 07/19/22 08/18/22 History Allergies Allergy/AdvReac Type Severity Reaction Status Date / Time latex Allergy Rash/Hives, Verified 08/23/22 10:06 red skin, lip swelling Penicillins Allergy Unknown Verified 08/23/22 10:06 Childhood Physical Exam Vitals: Vital Signs Temp Pulse Resp BP BP Pulse Ox 08/25/22 00:33 96 20 08/24/22 23:37 98.9 F 96 20 102/67 92 L 08/24/22 22:31 93 L 08/24/22 22:25 98.7 F 100 22 120/83 89 L 08/24/22 20:00 97.9 F 101 H 22 125/89 90 L 08/24/22 14:02 93 L 08/24/22 14:00 97.9 F 96 32 H 117/86 89 L 08/24/22 08:00 98.4 F 86 26 H 134/87 90 L 08/24/22 07:21 22 91 L 08/24/22 02:00 98.0 F 67 16 134/77 96 Intake and Output 08/24/22 08/24/22 08/25/22 14:59 22:59 06:59 Intake Total 490 Balance 490 Intake: Oral 490 Other: Voiding Method Toilet # Voids 1 1 Weight 70.2 kg GENERAL EXAM: Alert, 52-year-old white female, fairly comfortable in no apparent distress. HEAD: Normocephalic and atraumatic EYES: Normal reaction of pupils, equal size. NOSE: Clear with pink turbinates. THROAT: No erythema or exudates. NECK: No masses, no JVD. CHEST: No chest wall deformity. LUNGS: Equal air entry with rhonchi and scattered inspiratory crackles. no wheeze or focal dullness. On 12 L high flow cannula. No conversational dyspnea or accessory muscle use.. CVS: S1 and S2 normal with no audible murmur, regular rhythm. No extra heart sounds ABDOMEN: Multiple approximated laparoscopic incisions. No hepatosplenomegaly, active bowel sounds, no guarding or rigidity. SPINE: No scoliosis or deformity SKIN: No rashes CENTRAL NERVOUS SYSTEM: No focal deficits, tone is normal in all 4 extremities. EXTREMITIES: There is no peripheral edema, clubbing, or cyanosis. Peripheral pulses are intact. Results - Laboratory Findings CBC and BMP: 08/24/22 11:44 08/23/22 10:35 Abnormal lab findings: Abnormal Labs 08/23/22 08/24/22 10:35 11:44 WBC 20.4 H Neutrophils # 16.9 H Monocytes # 1.3 H Chloride 109 H - Diagnostic Findings Chest x-ray: image reviewed CT scan - chest: image reviewed Assessment and Plan Assessment: Post operative day #1 following an elective laparoscopic repair of hiatal hernia Acute hypoxemic respiratory failure, likely secondary to fluid overload and pulmonary edema. Chest CTA shows cardiomegaly, bilateral small pleural effusions, and perihilar groundglass opacities. NT proBNP was significantly elevated at 18,900. Currently on 12 L high flow cannula. No reported episodes of aspiration, the patient was started on empiric Zosyn by surgery. No pulmonary embolism seen on chest CTA. Leukocytosis, likely reactive following surgery Preoperative bradycardia, resolved GERD, without esophagitis Hyperlipidemia History of cholecystectomy History of prior sleeve gastrectomy Depression Plan: Patient's medications, labs, chest x-ray, chest CTA were reviewed Continue supplemental oxygen to maintain oxygen saturation 92% or greater Will start patient on Lasix 40 mg twice a day Monitor urine output Repeat chest x-ray in the morning Echocardiogram is scheduled for the morning Continue empiric Zosyn Add incentive spirometer Heparin for DVT prophylaxis We will continue to monitor the patient closely on the cardiac stepdown unit. I have personally seen and examined the patient, performed the documentation and the assessment and plan as written. Number of minutes spent on the visit:20 Time with Patient: Greater than 30
[2022-08-25] MEDS: D5-0.45% NACL WITH KCL 20MEQ/L 1,000 ML IV SCH (04:26)
--- NOTE | 2022-08-25 08:33 | XR ---
EXAMINATION TYPE: XR chest 1V portable DATE OF EXAM: 08/25/2022 COMPARISON: 08/24/2022 HISTORY: Shortness of breath TECHNIQUE: Single frontal view of the chest is obtained. FINDINGS: Bilateral infiltrate and small effusion increased from prior exam and there remains a diff use interstitial pattern. No pneumothorax. Heart size normal. Contrast within the upper abdomen sugge sted. Cannot exclude a surgery. Osseous structures are stable. IMPRESSION: 1. Increasing bilateral lower lobe consolidation or pneumonia with small effusion. Interstitial patte rn may represent interstitial pneumonitis or mild venous congestion.
[2022-08-25] MEDS: busPIRone HCl 5 MG TAB PO SCH ×2 (08:47→22:04)
[2022-08-25] MEDS: ESCITALOPRAM 20 MG TAB PO SCH (08:47)
[2022-08-25] MEDS: PIPERACILLIN-TAZOBACTAM 3.375 GM in SODIUM CHLORIDE 0.9% 100 ML IVPB SCH ×2 (08:48→17:49)
[2022-08-25] MEDS: HEPARIN SODIUM,PORCINE/PF 5,000 UNIT/0.5 ML SYRINGE SQ SCH ×2 (09:03→22:04)
[2022-08-25 11:11] LABS: Basophils # (A) 0.1 k/uL (0-0.2); Basophils % (A) 0 %; Eosinophils % (A) 0 %; HCT 44.5 % (34.0-46.0); HGB 14.7 gm/dL (11.4-16.0); Lymphocytes # (A) 2.6 k/uL (1.0-4.8); Lymphocytes % (A) 16 %; MCH 30.4 pg (25.0-35.0); MCHC 33.1 g/dL (31.0-37.0); Mean Platelet Volume 8.2; Monocytes # (A) 1.4 k/uL (0-1.0); Monocytes % (A) 9 %; Neutrophils # (A) 11.6 k/uL (1.3-7.7); Neutrophils % (A) 74 %; Platelet Count 361 k/uL (150-450); RBC 4.84 m/uL (3.80-5.40); RDW 12.9 % (11.5-15.5); WBC 15.8 k/uL (3.8-10.6)
[2022-08-25 11:32] LABS: African American GFR (CKD) >90 (>60 ml/min/1.73 sqM); Anion Gap 8 mmol/L; Blood Urea Nitrogen 12 mg/dL (7-17); Calcium 8.9 mg/dL (8.4-10.2); Carbon Dioxide 33 mmol/L (22-30); Chloride 97 mmol/L (98-107); Glucose 96 mg/dL (74-99); Non-African American GFR(CKD) >90 (>60 ml/min/1.73 sqM); Potassium 3.8 mmol/L (3.5-5.1); Sodium 138 mmol/L (137-145)
--- NOTE | 2022-08-25 13:35 | P.PN ---
Subjective Progress Note Date: 08/25/22 - History of Present Illness This a 52-year-old female with past medical history significant for gastroesophageal reflux disease, hypertension, hyperlipidemia, hypothyroidism, depression, laparoscopic sleeve gastrectomy and multiple other medical issues status post laparoscopic hiatal hernia repair, upon awakening, hypoxic, staff reports O2 sat down into the 80s, requiring 4 L of nasal cannula O2 to maintain O2 sats in the 90s. Stat chest x-ray ordered. Lasix IV push 1 for fluid overload after chest x-ray obtained, and IV fluids were pivl'd. AFebrile, WBC 20.4. Hemoglobin 13.4, platelets 392, Renal function stable. 08/25/2022 initial chest x-ray reported venous congestion, possible interstitial pneumonitis , received Lasix IV push empiric antibiotics initiated . Patient's hypoxia worsened and ended up on high flow nasal cannula. CTA reported no PE. Pulmonary consulted. CT of Abdomen and pelvis performed yesterday reporting postsurgical changes with pneumoperitoneum, gas within the abdominal wall subcutaneous tissues of the left abdominal wall musculature, oral contrast within the esophagus and stomach without evidence for extravasation, no organizing fluid collection visualized. Placed on scheduled IV push diuretics. Chest x-ray repeated this morning reporting increasing bilateral lower lobe consolidation or pneumonia with small effusion, interstitial pattern representing possibly interstitial pneumonitis or mild venous congestion. Oxygen recently titrated down to 3 L nasal cannula. Denies chest pain, palpitations or increasing shortness of breath. Afebrile, WBC decreased to 15.8. Objective - Vital Signs Vital signs: Vital Signs Temp 97.6 F 08/25/22 12:00 Pulse 92 08/25/22 12:00 Resp 18 08/25/22 12:00 BP 106/73 08/25/22 12:00 Pulse Ox 96 08/25/22 12:00 FiO2 Intake & Output 08/24/22 08/25/22 08/25/22 18:59 06:59 18:59 Intake Total 490 250 Output Total 900 Balance 490 -900 250 Weight 70.2 kg 51 kg Intake: Oral 490 250 Output: Urine 900 Other: Voiding Method Toilet # Voids 1 2 - Exam PHYSICAL EXAM: VITAL SIGNS: As above GENERAL: Alert and oriented 3, Sitting up in bed, no acute distress HEENT: Normocephalic, Conjunctivae normal. eyes normal. NECK: Supple, No JVD. No thyroid enlargement. No LNs CARDIOVASCULAR: S1, S2 regular. No murmur RESPIRATION: Equal air entry, scattered rhonchi, bilateral bases diminished ABDOMEN: Soft, status post surgery, lap sites ecchymotic,No guarding .Bowel sounds heard. LEGS: No edema. no swelling NERVOUS SYSTEM: Cranial N 2-12 grossly normal. No focal deficits. Strength and sensation grossly intact.. Skin: Warm and dry, no rash - Labs CBC & Chem 7: 08/25/22 10:30 08/25/22 10:30 Labs: Abnormal Lab Results - Last 24 Hours (Table) 08/25/22 08/25/22 Range/Units 10:30 10:30 WBC 15.8 H (3.8-10.6) k/uL Neutrophils # 11.6 H (1.3-7.7) k/uL Monocytes # 1.4 H (0-1.0) k/uL Chloride 97 L (98-107) mmol/L Carbon Dioxide 33 H (22-30) mmol/L Assessment and Plan Assessment: Hiatal hernia status post laparoscopic repair, bradycardic prior to procedure. Leukocytosis secondary to the above Postoperative fluid overload, IV push Lasix administered. Hypoxic respiratory failure postoperatively secondary to the above Chest x-ray reporting possible interstitial pneumonitis, or mild venous congestion, empiric antibiotics added to med regimen Gastroesophageal reflux disease History of laparoscopic sleeve gastrectomy Hyperlipidemia Hypertension Hypothyroidism Depression Plan: Continue on current medication regime ,monitoring and symptomatic t reatment. Continue on diuretics and titrating O2. Antibiotics, Aggressive pulmonary toileting with incentive spirometer reinforced. Increase ambulation as tolerated. The impression and plan of care has been dictated as directed. : I performed a history and examination of this patient, discussed the same with the dictator. I agree with the dictator's note ,documented as a scribe. Any additional findings or plans will be noted.
--- NOTE | 2022-08-25 15:35 | P.PN ---
Subjective Progress Note Date: 08/25/22 CHIEF COMPLAINT: Hiatal hernia HISTORY OF PRESENT ILLNESS: Patient is postop day #2 status post laparoscopic repair of hiatal hernia. Patient was found to have evidence of fluid overload and his been requiring IV Lasix. Her echo is pending. CTA showed no evidence of PE but did reveal pulmonary edema. Computed tomography scan of abdomen and pelvis showed postsurgical changes with pneumoperitoneum, gas within the abdominal wall subcutaneous tissues and left abdominal wall musculature. Which is compatible with recent history of surgery. Oral contrast within the esophagus and stomach without evidence of extravasation. Surgical clips/sutures are in the upper quadrant at the gastroesophageal junction. No organizing fluid collection visualized. Patient reports that she is starting to feel better today. She is currently on 3 L of oxygen. She's been seen and evaluated by pulmonary service. She has had a bowel movement. She is tolerating diet. Her abdominal pain has decreased. Afebrile. WBC is down from 20-15.8 Hgb 14.7 platelets 361 Patient seen and examined with Dr. Corona PHYSICAL EXAM: VITAL SIGNS: Reviewed. GENERAL: Well-developed. Coughing during exam ABDOMEN: Soft. Nondistended. Nontender Incision sites clean dry and intact with minimal bruising. NEUROLOGIC: Alert and oriented. Cranial nerves II through XII grossly intact. ASSESSMENT: 1. Hiatal hernia status post laparoscopic repair of hiatal hernia 2. Leukocytosis 3. 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 Signing provider agrees with the documented findings, assessment, and plan of care. Objective - Vital Signs Vital signs: Vital Signs Temp 97.6 F 08/25/22 12:00 Pulse 92 08/25/22 12:00 Resp 18 08/25/22 12:00 BP 106/73 08/25/22 12:00 Pulse Ox 96 08/25/22 12:00 FiO2 Intake & Output 08/24/22 08/25/22 08/25/22 18:59 06:59 18:59 Intake Total 490 675 Output Total 900 Balance 490 -900 675 Weight 70.2 kg 51 kg Intake: Oral 490 675 Output: Urine 900 Other: Voiding Method Toilet # Voids 1 2 - Labs CBC & Chem 7: 08/25/22 10:30 08/25/22 10:30 Labs: Abnormal Lab Results - Last 24 Hours (Table) 08/25/22 08/25/22 Range/Units 10:30 10:30 WBC 15.8 H (3.8-10.6) k/uL Neutrophils # 11.6 H (1.3-7.7) k/uL Monocytes # 1.4 H (0-1.0) k/uL Chloride 97 L (98-107) mmol/L Carbon Dioxide 33 H (22-30) mmol/L
--- NOTE | 2022-08-25 19:05 | CA ---
Transthoracic Echo Report Name: Alejandra Ruvalcaba Age: 52 Gender: F : 1970 Exam Date: 08/25/2022 07:41 Exam Location: [facility] Ht (in): 64 Wt (lb): 112 Ordering Physician: Fani Street Attending/Referring Phys: Manager Of Financial Reporting Erwin Long Procedure CPT: Indications: bradycardia,hypoxic Cardiac Hx: Technical Quality: Fair Contrast 1: Total Dose (mL): Contrast 2: Total Dose (mL): MEASUREMENTS (Male / Female) Normal Values 2D ECHO LV Diastolic Diameter PLAX 4.2 cm 4.2 - 5.9 / 3.9 - 5.3 cm LV Systolic Diameter PLAX 3.5 cm IVS Diastolic Thickness 1.3 cm 0.6 - 1.0 / 0.6 - 0.9 cm LVPW Diastolic Thickness 1.3 cm 0.6 - 1.0 / 0.6 - 0.9 cm LV Relative Wall Thickness 0.6 RV Internal Dim ED PLAX 3.2 cm LVOT Diameter 2.0 cm Aortic Root Diameter 3.0 cm LA Systolic Diameter LX 3.0 cm 3.0 - 4.0 / 2.7 - 3.8 cm LV Diastolic Volume MOD BP 60.9 cm??? 67 - 155 / 56 - 104 cm??? LV Systolic Volume MOD BP 31.0 cm??? 22 - 58 / 19 - 49 cm??? LV Ejection Fraction MOD BP 49.1 % >= 55 % LV Diastolic Volume MOD 4C 58.4 cm??? LV Systolic Volume MOD 4C 33.9 cm??? LV Ejection Fraction MOD 4C 42.0 % LV Diastolic Length 4C 7.0 cm LV Systolic Length 4C 6.0 cm LV Diastolic Volume MOD 2C 66.1 cm??? LV Systolic Volume MOD 2C 50.1 cm??? LV Ejection Fraction MOD 2C 24.3 % LV Diastolic Length 2C 6.7 cm LV Systolic Length 2C 6.1 cm LA Volume 45.8 cm??? 18 - 58 / 22 - 52 cm??? Ascending Aorta Diameter 2.9 cm DOPPLER AV Peak Velocity 134.2 cm/s AV Peak Gradient 7.2 mmHg LVOT Peak Velocity 126.5 cm/s LVOT Peak Gradient 6.4 mmHg AV Area Cont Eq pk 2.9 cm??? MV Peak Velocity 81.3 cm/s MV Peak Gradient 2.6 mmHg MV Mean Velocity 42.2 cm/s MV Mean Gradient 0.9 mmHg MV Velocity Time Integral 26.7 cm MR Peak Velocity 309.9 cm/s MR Peak Gradient 38.4 mmHg TR Peak Velocity 229.6 cm/s TR Peak Gradient 21.1 mmHg Right Ventricular Systolic Press 26.2 mmHg FINDINGS Left Ventricle Left ventricular ejection fraction is estimated at 30-35 %.left ventricular cavity size normal. Anterior apical, anteroseptal and apical lateral severe hypokinesis Right Ventricle Normal right ventricular size. Right Atrium Normal right atrial size. Left Atrium Normal left atrial size. Mitral Valve Structurally normal mitral valve. Mild mitral regurgitation. Aortic Valve Trileaflet aortic valve. No aortic regurgitation. No aortic stenosis. Tricuspid Valve Tricuspid valve not well visualized. Mild mitral regurgitation. RVSP= 26 mmhg Pulmonic Valve Structurally normal pulmonic valve. No pulmonic regurgitation. Pericardium Normal pericardium. Aorta Normal size aortic root and proximal ascending aorta. CONCLUSIONS 1. Severely impaired left ventricular systolic function with segmental wall motion abnormality 2. Mild mitral and tricuspid regurgitation Previewed by: Dr. Mark Mcgee MD (Electronically Signed) Final Date: 25 August 2022 19:04
[2022-08-25] MEDS: HYDROcodone/APAP 5-325MG 1 EACH TAB PO PRN (22:04)
[2022-08-25] MEDS: ATORVASTATIN 10 MG TAB PO SCH (22:04)
[2022-08-25] MEDS: traZODone HCL 50 MG TAB PO SCH (22:04)
[2022-08-26] MEDS: PIPERACILLIN-TAZOBACTAM 3.375 GM in SODIUM CHLORIDE 0.9% 100 ML IVPB SCH ×4 (00:51→23:13)
[2022-08-26] MEDS: FUROSEMIDE 10 MG/ML 4 ML VIAL IV SCH (00:51)
[2022-08-26] MEDS ORDERED: HEPARIN SODIUM,PORCINE 2,500 UNIT in SODIUM CHLORIDE 0.9% 250 ML IRRIGATION PRN (07:00)
[2022-08-26] MEDS ORDERED: HEPARIN SODIUM,PORCINE 10,000 UNIT in SODIUM CHLORIDE 0.9% 1,000 ML IRRIGATION PRN (07:00)
[2022-08-26 07:33] LABS: Basophils # (A) 0.1 k/uL (0-0.2); Basophils % (A) 1 %; Eosinophils # (A) 0.2 k/uL (0-0.7); Eosinophils % (A) 2 %; HCT 43.8 % (34.0-46.0); HGB 14.1 gm/dL (11.4-16.0); Lymphocytes # (A) 3.4 k/uL (1.0-4.8); Lymphocytes % (A) 35 %; MCH 29.8 pg (25.0-35.0); MCHC 32.2 g/dL (31.0-37.0); MCV 92.3 fL (80.0-100.0); Mean Platelet Volume 7.6; Monocytes # (A) 0.8 k/uL (0-1.0); Monocytes % (A) 8 %; Neutrophils # (A) 5.2 k/uL (1.3-7.7); Neutrophils % (A) 52 %; Platelet Count 326 k/uL (150-450); RBC 4.75 m/uL (3.80-5.40); RDW 12.9 % (11.5-15.5); WBC 9.9 k/uL (3.8-10.6)
[2022-08-26 07:56] LABS: African American GFR (CKD) >90 (>60 ml/min/1.73 sqM); Anion Gap 4 mmol/L; Blood Urea Nitrogen 11 mg/dL (7-17); Calcium 8.7 mg/dL (8.4-10.2); Carbon Dioxide 35 mmol/L (22-30); Chloride 99 mmol/L (98-107); Glucose 95 mg/dL (74-99); Non-African American GFR(CKD) >90 (>60 ml/min/1.73 sqM); Potassium 3.6 mmol/L (3.5-5.1); Sodium 138 mmol/L (137-145)
[2022-08-26] MEDS: HEPARIN SODIUM,PORCINE/PF 5,000 UNIT/0.5 ML SYRINGE SQ SCH ×2 (09:04→22:39)
[2022-08-26] MEDS: busPIRone HCl 5 MG TAB PO SCH ×2 (09:04→22:39)
[2022-08-26] MEDS: ESCITALOPRAM 20 MG TAB PO SCH (09:04)
[2022-08-26] MEDS ORDERED: FUROSEMIDE 10 MG/ML 2 ML VIAL IV SCH (10:00)
--- NOTE | 2022-08-26 11:17 | P.PN ---
Subjective Progress Note Date: 08/26/22 Principal diagnosis: Hypoxemia. I am seeing this patient in new consultation today 08/25/2022 on the cardiac stepdown unit status post operative day #1 for an elective laparoscopic repair of hiatal hernia. Patient is a 52-year-old white female with past medical history significant for hiatal hernia, GERD, hyperlipidemia, cholecystectomy, prior gastric sleeve, depression. The procedure was reportedly completed without complications. Following the procedure, the patient developed acute shortness of breath and hypoxia. No reported episodes of nausea, vomiting, aspiration. Chest x-ray indicated diffuse interstitial infiltrates indicating possible pulmonary vascular congestion versus interstitial pneumonitis. The patient was empirically started on Zosyn. A follow-up chest CTA showed no evidence of pulmonary embolism. It did show cardiomegaly with bilateral pleural effusions and perihilar groundglass opacities correlating for possible pulmonary edema. NT proBNP was significantly elevated at 18,900. The patient has been given 2 doses of Lasix so far today. She reports good urine output, however, this has not been recorded. There is an echocardiogram scheduled for the morning. She is currently resting in bed, on 12 L high flow nasal cannula, in no significant distress. She denies any chest pain, heart palpitations, lower extremity swelling, orthopnea, PND. ECG shows no obvious evidence of acute ischemic event. She does have a occasional nonproductive cough. No fevers. Initial CBC shows a WBC count of 20.4, hemoglobin 13.4, hematocrit 40.8, geovanna telets 392. BMP was unremarkable. Vital signs are stable. Progress note 08/26/2022. 52-year-old female seen in consultation for shortness of breath, and hypoxemia. The patient's chest x-ray suggested CHF, and the patient's N-terminal proBNP was quite high at over 18,000. The patient's feeling much better now. She's been weaned down to room air. She's not receiving any IV fluids. She has been seen by cardiology. She may or may not be discharged today. White count 9.9, hemoglobin 14.1, hematocrit 43.8, and platelet count was normal. Sodium 138, potassium 3.6, chlorides 99, CO2 35, BUN 11, creatinine 0.66 Objective - Vital Signs Vital signs: Vital Signs Temp 98.4 F 08/26/22 07:56 Pulse 81 08/26/22 07:56 Resp 16 08/26/22 07:56 BP 94/55 08/26/22 10:00 Pulse Ox 95 08/26/22 08:19 FiO2 21 08/26/22 08:19 Intake & Output 08/25/22 08/26/22 08/26/22 18:59 06:59 18:59 Intake Total 975 Output Total 1800 500 Balance -825 -500 Weight 67.6 kg Intake: Oral 975 Output: Urine 1800 500 Other: Voiding Method Toilet # Voids 1 - Exam No acute distress, oriented 3. Currently on room air. HEENT examination is grossly unremarkable. Neck supple. Full range of motion. No adenopathy thyromegaly or neck vein distention. Cardiovascular examination reveals regular rhythm rate. S1-S2 normal. No S3 or S4. No discernible murmur noted. Heart rate 81 beats per minutes. Lungs reveal clear breath sounds. Breath sounds are equal bilaterally. No adventitious lung sounds including wheezes rhonchi or crackles. Saturations are 98%. Abdomen soft bowel sounds are heard. No masses or tenderness. Extremities are intact. No cyanosis clubbing or edema. Skin is without rash or lesion. Neurologic examination is brief but nonfocal. - Labs CBC & Chem 7: 08/26/22 07:08 08/26/22 07:08 Labs: Abnormal Lab Results - Last 24 Hours (Table) 08/25/22 08/26/22 Range/Units 10:30 07:08 Chloride 97 L (98-107) mmol/L Carbon Dioxide 33 H 35 H (22-30) mmol/L Assessment and Plan Assessment: Post operative day #2 following an elective laparoscopic repair of hiatal hernia. Acute hypoxemic respiratory failure, likely secondary to fluid overload and pulmonary edema. Chest CTA shows cardiomegaly, bilateral small pleural effusions, and perihilar groundglass opacities. NT proBNP was significantly elevated at 18,900. Leukocytosis, likely reactive following surgery. Preoperative bradycardia, resolved. GERD, without esophagitis. Hyperlipidemia. History of cholecystectomy. History of prior sleeve gastrectomy. Depression. Plan: Plan dated 08/26/2022. The patient is being seen by cardiology for possible abnormal echocardiogram. The patient is doing very well. She's on room air. She's feeling much better. I believe the problem was primarily fluid overload/CHF. This may relate to her underlying cardiac issue, which cardiology is currently evaluating. From the pulmonary standpoint, the patient could be considered for discharge. Labs, x- rays, and medications are reviewed. Time with Patient: Less than 30
[2022-08-26] MEDS ORDERED: ATORVASTATIN 80 MG TAB PO STA (11:33)
[2022-08-26] MEDS ORDERED: ALPRAZolam 0.25 MG TAB PO PRN (11:33)
[2022-08-26] MEDS ORDERED: ALPRAZolam 0.5 MG TAB PO PRN (11:33)
[2022-08-26] MEDS ORDERED: NITROGLYCERIN SL TABS 0.4 MG TAB SUBLINGUAL PRN (11:33)
[2022-08-26] MEDS ORDERED: ASPIRIN 325 MG TAB PO STA (11:33)
[2022-08-26] MEDS ORDERED: SODIUM CHLORIDE 0.9% 1,000 ML in EMPTY BAG 1 BAG IV SCH (11:45)
[2022-08-26] MEDS: SPIRONOLACTONE 25 MG TAB PO SCH (11:56)
--- NOTE | 2022-08-26 12:14 | P.PN ---
Subjective Progress Note Date: 08/26/22 CHIEF COMPLAINT: Hiatal hernia HISTORY OF PRESENT ILLNESS: Patient is postop day #3 status post laparoscopic repair of hiatal hernia. Patient reports she is feeling better. She is on room air. She has been up and ambulating without shortness of breath. She had been on IV Lasix. She switched over to oral Lasix today by cardiology. Echo was abnormal it showed severely impaired left ankle systolic function with segmental wall motion abnormality. EF of 30-35%. Cardiology was consulted. Patient d enies any chest pain at any time. Blood pressures have been on the lower side. She is tolerating her near Milind clear liquid diet. Denies any abdominal pain. Afebrile. WBC is down to 9.9HP 14.1 platelets 326. Troponins are elevated Patient seen and examined with Dr. Corona PHYSICAL EXAM: VITAL SIGNS: Reviewed. GENERAL: Well-developed. Coughing during exam ABDOMEN: Soft. Nondistended. Nontender. Incision sites clean dry and intact with minimal bruising. NEUROLOGIC: Alert and oriented. Cranial nerves II through XII grossly intact. ASSESSMENT: 1. Hiatal hernia status post laparoscopic repair of hiatal hernia 2. Leukocytosis resolved 3. Fluid overload 4. Elevated troponin, Echo with EF of 30-35% with segmental wall motion abnormality PLAN: -Consult placed for cardiology. They've ordered Cardiac catheterization for today -Continue supportive care -Continue pain management -Continue empiric antibiotics -Lasix per cardiology -DVT prophylaxis subcu heparin Physician Biazzi Nitrator Operator note has been reviewed by physician. Signing provider agrees with the documented findings, assessment, and plan of care. Objective - Vital Signs Vital signs: Vital Signs Temp 98.4 F 08/26/22 07:56 Pulse 81 08/26/22 07:56 Resp 16 08/26/22 07:56 BP 94/55 08/26/22 10:00 Pulse Ox 95 08/26/22 08:19 FiO2 21 08/26/22 08:19 Intake & Output 08/25/22 08/26/22 08/26/22 18:59 06:59 18:59 Intake Total 975 Output Total 1800 500 Balance -825 -500 Weight 67.6 kg Intake: Oral 975 Output: Urine 1800 500 Other: Voiding Method Toilet # Voids 1 - Labs CBC & Chem 7: 08/26/22 07:08 08/26/22 07:08 Labs: Abnormal Lab Results - Last 24 Hours (Table) 08/25/22 08/26/22 08/26/22 Range/Units 10:30 07:08 07:08 Chloride 97 L (98-107) mmol/L Carbon Dioxide 33 H 35 H (22-30) mmol/L Troponin I 1.780 H* (0.000-0.034) ng/mL
--- NOTE | 2022-08-26 12:39 | CONS ---
CONSULTATION REASON FOR CONSULTATION: CHF and volume overload. HISTORY OF PRESENT ILLNESS: This is a 52-year-old lady with a history of alcoholism, and she has been sober for nearly 11 to 12 months. She came in for a very elective hiatal hernia repair laparoscopically that was done on Tuesday uneventfully. Immediately the next day, 24 hours postoperatively, she developed shortness of breath and was found to be in volume overload. She has been diuresed, and a subsequent echo performed yesterday revealed ejection fraction in the 30% to 35% range with wall motion abnormalities. She denies any chest discomfort. After receiving Lasix, she feels better. Her breathing is easier. She is resting comfortably without any symptoms. She also had a CT angiogram performed yesterday, which did not reveal any pulmonary embolism. She is resting comfortably without symptoms, but tells me that her shortness of breath was quite significant on Tuesday, somewhat better yesterday, and today, she feels much better. EKG revealed evidence of old anteroseptal [place] with nonspecific ST-T changes. I have ordered a troponin stat, and this came to be 1.78. Possibility of a perioperative myocardial infarction should be considered. Her echocardiogram revealed an ejection fraction of about 30% to 35% with anteroapical septal and apical lateral severe hypokinesia. There is no pulmonary hypertension, and no other significant abnormality on the Doppler exam. PAST MEDICAL HISTORY: Remarkable for gastroesophageal reflux disease, hypertension, hyperlipidemia, and some thyroid disorder. She has previous bariatric surgery, breast surgery, and cholecystectomy. She had an echo in 2016, at which time, ejection fraction was quite normal. MEDICATIONS AT HOME: Include: 1. Estrogen. 2. Omeprazole. 3. Atorvastatin 10 mg daily. 4. BuSpar. 5. Lexapro. ALLERGIES: 1. Penicillin. 2. Latex. PHYSICAL EXAMINATION: VITAL SIGNS: Blood pressure is 94/60, pulse rate is about 80 per minute. HEENT: Unremarkable. Fundus was not examined. NECK: Supple. No JVD. No carotid bruit. HEART: Reveals S1 and S2 heard normally. No significant murmurs. LUNGS: Clear. ABDOMEN: Soft. EXTREMITIES: Lower extremities reveal palpable pulses. No edema. CENTRAL NERVOUS SYSTEM: Normal. DIAGNOSTIC STUDIES: EKG revealed sinus mechanism, old septal [place], nonspecific ST-T abnormality in lateral leads. IMPRESSION: 1. Exacerbation of congestive heart failure, improved with Lasix. 2. Gxe-QP-[id number] myocardial infarction with abnormal troponin and evidence of old septal myocardial infarction with nonspecific ST-T changes. 3. Postoperative day 3 following laparoscopic hiatal hernia repair by Dr. Corona. RECOMMENDATIONS: I am recommending that we will cautiously diurese her and perform coronary angiography to rule out any obstructive CAD. I explained to the patient the rationale, risks, benefits, and options related to cardiac catheterization. She understands all details and wishes to proceed with the procedure, which will be scheduled for this afternoon. I spoke to Dr. Corona as well. Thank you very much for the consult. MMODL / IJN: [id number] /
[2022-08-26] MEDS ORDERED: HEPARIN SODIUM 1,000 UN/ML (10ML VL) ONE (13:07)
[2022-08-26] MEDS ORDERED: VERAPAMIL 2.5 MG/ML 2 ML AMP ONE (13:07)
[2022-08-26] MEDS ORDERED: SODIUM CHLORIDE 0.9% 1,000 ML IV ONE (13:38)
[2022-08-26] MEDS: MIDAZOLAM 2 MG/2 ML VIAL IVP ONE ×2 (13:38→13:51)
[2022-08-26] MEDS ORDERED: LIDOCAINE 1% INJ 10MG/ML (5 ML VIAL-PF) SQ ONE (13:41)
[2022-08-26] MEDS ORDERED: VERAPAMIL SYRINGE (5 MG/10 ML) INTRAARTER ONE (13:42)
[2022-08-26] MEDS ORDERED: HEPARIN SODIUM 1,000 UN/ML (10ML VL) IVP ONE (13:45)
[2022-08-26] MEDS ORDERED: PHENYLEPHRINE-0.9% NACL SYG 1,000 MCG/10 ML SYRINGE IV ONE (13:47)
[2022-08-26] MEDS ORDERED: IOPAMIDOL-370 100ML BTL INJ ONE (13:53)
--- NOTE | 2022-08-26 14:01 | CDI ---
Documentation Clarification Form Date: 08/26/2022 01:45:17 PM From: Ramya Rojas RN CCDS Phone: [phone] Admit Date: 08/24/2022 04:22:00 PM Patient Name: Alejandra Ruvalcaba Visit Number: [id number] Discharge Date: ATTENTION: The Clinical Documentation Specialists (CDI) and [facility] Coding Staff appreciate your assistance in clarifying documentation. Please respond to the clarification below the line at the bottom and electronically sign. The CDI & [facility] Coding staff will review the response and follow-up if needed. Please note: Queries are made part of the Legal Health Record. If you have any questions, please contact the author of this message via ITS. Dr. Yunier Paez Your patient has the documented diagnosis of unspecified CHF 08/26, Cardiology consult. Additional information regarding the type of CHF is requested. History/Risk Factors: 52-year-old female presented for elective hernia surgery. She developed shortness of breath and found to be in fluid volume overload. Medical history: HTN, GERD and HLD. 08/26, Cardiology consult. Clinical Indicators: VS/Pulse OX, 08/24: B/P 120/83; HR 100; SpO2 98.7 F Oral; RR 22; SpO2 89% 12L high flow BNP, 08/25: [id number] Echocardiogram Results, 08/25: EF 30-35% Severely impaired left ventricular systolic function with segmental wall motion abnormality. Mild mitral and tricuspid regurgitation. Chest X Ray 08/25: Increasing bilateral lower lobe consolidation or pneumonia with small effusion. Interstitial pattern may represent interstitial pneumonitis or mild venous congestion. Treatment: 08/24 Lasix 40mg IV x 1; 08/24 Lasix 20mg IV x 1; 08/24 08/26 Lasix 40mg IV Q12H; 08/26 Aldactone 12.5mg Daily; 08/26 Lasix 20mg PO BID . In your professional opinion, can you please clarify the type of CHF if known? [ ] Acute Systolic Heart Failure (reduced EF) [ ] Acute on Chronic Systolic Heart Failure (reduced EF) [ ] Other, please specify [ ] Unable to determine (Template Last Revised: April 2020) Acute Systolic Heart Failure (reduced EF) MTDD
--- NOTE | 2022-08-26 15:55 | CC ---
CARDIAC CATHETERIZATION REPORT DATE OF SERVICE: 08/26/2022. PROCEDURES PERFORMED: Left heart catheterization and coronary angiography. PERFORMED BY: Dr. Robert Paez. ANESTHESIA: Moderate conscious sedation time was 14 minutes. The patient was administered Versed. Oxygen saturation, hemodynamics, and EKG were monitored closely. CLINICAL INFORMATION: Ms. Alejandra Ruvalcaba is a 52-year-old lady, admitted to the hospital for an elective hiatal hernia repair by a laparoscopic approach by Dr. Corona on Tuesday. On Tuesday, she developed shortness of breath and was found to be in heart failure. Echo revealed ejection fraction of 30% to 35% with wall motion abnormalities. I saw her today and performed a troponin level, which was elevated at 1.78. She was advised cardiac catheterization to rule out any obstructive CAD, although clinical picture suggested takotsubo-type picture/apical ballooning/stress cardiomyopathy-type picture. Risks, benefits, options, and rationale were explained to the patient, and the patient was brought in for the procedure. PROCEDURE NOTE: Under local anesthesia and strict aseptic precautions, a 6-Danish introducer was placed in the right radial artery. Using a JL3.5 and JR4 catheters, I performed coronary angiography, and the same right catheter was used to check LV pressures, but LV-gram was not performed. The sheath was taken out, and TR band was applied as per protocol. Saturation in the fingers of the right hand was 91%, same as baseline. The patient tolerated the procedure well without complications. CARDIAC CATHETERIZATION FINDINGS: The left ventricular end-diastolic pressure was 7 mmHg without any gradient across aortic valve. CORONARY ANGIOGRAPHY FINDINGS: RIGHT CORONARY ARTERY: Technically, this is a dominant vessel, has minor irregularities, no significant disease. Distally bifurcates into large PDA and PLV, both of which supply a sizable amount of myocardium. LEFT MAIN CORONARY ARTERY: Short, patent vessel, free of significant disease. Bifurcates into LAD and circumflex. LEFT ANTERIOR DESCENDING CORONARY ARTERY: Good-caliber vessel, extends along the anterior wall, gives off septal and diagonal branches. It runs all the way to the apex. The diagonal branch is large in caliber and distribution. The LAD becomes somewhat smaller in the distal one-fourth. Minor irregularities. No significant disease in the LAD system. LEFT POSTERIOR CIRCUMFLEX CORONARY ARTERY: Nondominant vessel, gives off a good-sized obtuse marginal that bifurcates, supplies a sizable amount of myocardium. No significant disease. FINAL IMPRESSION: This patient has gexgta-gm-hsc filling pressures, no gradient. Right-dominant system. No obstructive coronary artery disease. RECOMMENDATIONS: Findings were discussed with the patient and also with her boyfriend and son. 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 I am recommending that we will manage her conservatively. The patient was somewhat volume depleted. I gave her some IV fluids and 100 mg of phenylephrine. Pressure at the time she left the lab was about 95 systolic, asymptomatic. We will hydrate her cautiously, and based on clinical course, make further recommendations. I expect she will be discharged in next 48 hours. Findings were discussed with the patient and her boyfriend and son. MIGUEL ÁNGEL / AAMIR: [id number] /
[2022-08-26] MEDS ORDERED: FUROSEMIDE 20 MG TAB PO SCH (16:00)
[2022-08-26] MEDS ORDERED: SODIUM CHLORIDE 0.9% 500 ML 250 ML IV ONE (16:28)
[2022-08-26] MEDS: SODIUM CHLORIDE 0.9% 1,000 ML IV SCH (16:53)
--- NOTE | 2022-08-26 18:16 | P.PN ---
Subjective Progress Note Date: 08/26/22 - History of Present Illness This a 52-year-old female with past medical history significant for gastroesophageal reflux disease, hypertension, hyperlipidemia, hypothyroidism, depression, laparoscopic sleeve gastrectomy and multiple other medical issues status post laparoscopic hiatal hernia repair, upon awakening, hypoxic, staff reports O2 sat down into the 80s, requiring 4 L of nasal cannula O2 to maintain O2 sats in the 90s. Stat chest x-ray ordered. Lasix IV push 1 for fluid overload after chest x-ray obtained, and IV fluids were pivl'd. AFebrile, WBC 20.4. Hemoglobin 13.4, platelets 392, Renal function stable. 08/25/2022 initial chest x-ray reported venous congestion, possible interstitial pneumonitis , received Lasix IV push empiric antibiotics initiated . Patient's hypoxia worsened and ended up on high flow nasal cannula. CTA reported no PE. Pulmonary consulted. CT of Abdomen and pelvis performed yesterday reporting postsurgical changes with pneumoperitoneum, gas within the abdominal wall subcutaneous tissues of the left abdominal wall musculature, oral contrast within the esophagus and stomach without evidence for extravasation, no organizing fluid collection visualized. Placed on scheduled IV push diuretics. BNP 18,900. Chest x-ray repeated this morning reporting increasing bilateral lower lobe consolidation or pneumonia with small effusion, interstitial pattern representing possibly interstitial pneumonitis or mild venous congestion. Oxygen recently titrated down to 3 L nasal cannula. Denies chest pain, palpitations or increasing shortness of breath. Afebrile, WBC decreased to 15.8. 08/26/2022 diuresing well on Lasix IV push with 24-hour I&O reflecting a negative fluid balance. Breathing significantly easier, oxygen weaned off, maintaining O2 sats in the 90s. Ambulating in room, tolerating exertion well. Denies chest pain, palpitations or shortness of breath.Echo completed yesterday reporting severely impaired LV systolic function with segmental wall motion abnormality, EF 30-35%, mild mitral and tricuspid regurgitation. Troponin elevated to 1.78, series in progress. Cardiology consulted. EKG ordered. Tolerating Milind clear liquid diet with no nausea vomiting or diarrhea. Denies abdominal pain. Afebrile, WBC within normal limits. Objective - Vital Signs Vital signs: Vital Signs Temp 98 F 08/26/22 16:24 Pulse 84 08/26/22 16:24 Resp 16 08/26/22 16:24 BP 80/51 08/26/22 16:24 Pulse Ox 94 L 08/26/22 16:24 FiO2 21 08/26/22 08:19 Intake & Output 08/25/22 08/26/22 08/26/22 18:59 06:59 18:59 Intake Total 975 400 Output Total 1800 500 200 Balance -825 -500 200 Weight 67.6 kg Intake: IV 400 Oral 975 Output: Urine 1800 500 200 Other: Voiding Method Toilet # Voids 1 - Exam PHYSICAL EXAM: VITAL SIGNS: As above GENERAL: Alert and oriented 3, Sitting up in bed, no acute distress HEENT: Normocephalic, Conjunctivae normal. eyes normal. NECK: Supple, No JVD. No thyroid enlargement. No LNs CARDIOVASCULAR: S1, S2 regular. No murmur RESPIRATION: Equal air entry, bilateral bases diminished ABDOMEN: Soft, status post surgery, lap sites ecchymotic,No guarding .Bowel sounds heard. LEGS: No edema. no swelling NERVOUS SYSTEM: Cranial N 2-12 grossly normal. No focal deficits. Strength and sensation grossly intact.. Skin: Warm and dry, no rash - Labs CBC & Chem 7: 08/26/22 07:08 08/26/22 07:08 Labs: Abnormal Lab Results - Last 24 Hours (Table) 08/26/22 08/26/22 08/26/22 Range/Units 07:08 07:08 10:52 Carbon Dioxide 35 H (22-30) mmol/L Troponin I 1.780 H* 1.340 H* (0.000-0.034) ng/mL 08/26/22 Range/Units 15:25 Carbon Dioxide (22-30) mmol/L Troponin I 1.310 H* (0.000-0.034) ng/mL Assessment and Plan Assessment: Hiatal hernia status post laparoscopic repair, bradycardic prior to procedure. Possible NSTEMI,troponin 1.780, Echo reporting EF of 30-35% with segmental wall motion abnormality. In June 2015 patient had a normal stress echo cardiogram with no evidence of stress-induced ischemia. Leukocytosis secondary to the above Postoperative fluid overload, IV push Lasix administered. Hypoxic respiratory failure postoperatively secondary to the above Chest x-ray reporting possible interstitial pneumonitis, or mild venous congestion, empiric antibiotics added to med regimen Gastroesophageal reflux disease History of laparoscopic sleeve gastrectomy Hyperlipidemia Hypertension Hypothyroidism Depression Plan: Continue on current medication regime ,monitoring and symptomatic treatment. Evaluated by cardiology and patient is scheduled for cardiac catheterization. Continue on diuretics and empiric antibiotics. Aggressive pulmonary toileting with incentive spirometer reinforced. The impression and plan of care has been dictated as directed. : I performed a history and examination of this patient, discussed the same with the dictator. I agree with the dictator's note ,documented as a scribe. Any additional findings or plans will be noted.
[2022-08-26] MEDS: ATORVASTATIN 10 MG TAB PO SCH (22:39)
[2022-08-26] MEDS: traZODone HCL 50 MG TAB PO SCH (22:40)
[2022-08-27 03:53] VITALS: RESP 16
[2022-08-27] MEDS: SODIUM CHLORIDE 0.9% 1,000 ML IV SCH (04:19)
[2022-08-27] MEDS ORDERED: SPIRONOLACTONE 25 MG TAB PO SCH (09:00)
[2022-08-27] MEDS: busPIRone HCl 5 MG TAB PO SCH ×2 (09:12→20:02)
[2022-08-27] MEDS: FUROSEMIDE 20 MG TAB PO SCH (09:12)
[2022-08-27] MEDS: ASPIRIN 81 MG PO SCH (09:12)
[2022-08-27] MEDS: ESCITALOPRAM 20 MG TAB PO SCH (09:12)
[2022-08-27] MEDS: HEPARIN SODIUM,PORCINE/PF 5,000 UNIT/0.5 ML SYRINGE SQ SCH ×2 (09:12→20:03)
[2022-08-27] MEDS: SPIRONOLACTONE 25 MG TAB PO SCH (09:12)
[2022-08-27] MEDS: PIPERACILLIN-TAZOBACTAM 3.375 GM in SODIUM CHLORIDE 0.9% 100 ML IVPB SCH ×2 (09:13→16:23)
--- NOTE | 2022-08-27 11:32 | P.PN ---
Subjective Progress Note Date: 08/27/22 CHIEF COMPLAINT: Hiatal hernia HISTORY OF PRESENT ILLNESS: Patient is postop day #4 status post laparoscopic repair of hiatal hernia. Patient reports that she feels fine. She denies any shortness of breath. She denies any abdominal pain. She was evaluated by cardiology and did have a heart catheterization yesterday. The results showed no obstructive coronary artery disease. Cardiology felt the patient likely had a stress cardiomyopathy. Afebrile. BP 91/65. WBC 9.9. Cardiology was like patient stay until tomorrow for further monitoring. Patient seen and examined with Dr. Corona PHYSICAL EXAM: VITAL SIGNS: Reviewed. GENERAL: Well-developed. ABDOMEN: Soft. Nondistended. Nontender. Incision sites clean dry and intact with minimal bruising. NEUROLOGIC: Alert and oriented. Cranial nerves II through XII grossly intact. ASSESSMENT: 1. Hiatal hernia status post laparoscopic repair of hiatal hernia 2. Leukocytosis resolved 3. Fluid overload 4. Stress-induced cardiomyopathy followed by cardiology PLAN: -Anticipate discharge possibly tomorrow, if cleared by cardiology -Continue supportive care -Continue pain management -Continue empiric antibiotics for now -DVT prophylaxis subcu heparin Physician Language Instructor note has been reviewed by physician. Signing provider agrees with the documented findings, assessment, and plan of care. Objective - Vital Signs Vital signs: Vital Signs Temp 98.4 F 08/27/22 08:00 Pulse 81 08/27/22 08:00 Resp 16 08/27/22 08:00 BP 91/65 08/27/22 08:00 Pulse Ox 95 08/27/22 08:00 FiO2 21 08/26/22 08:19 Intake & Output 08/26/22 08/27/22 08/27/22 18:59 06:59 18:59 Intake Total 400 310 Output Total 200 Balance 200 310 Weight 68.5 kg Intake: IV 400 Intake, IV Titration 100 Amount Piperacillin-Tazobactam 3 100 .375 gm In Sodium Chloride 0.9% 100 ml @ 25 mls/hr IVPB Q8HR GEORGE Rx# :[id number] Oral 210 Output: Urine 200 Other: Voiding Method Toilet Toilet # Voids 2 - Labs CBC & Chem 7: 08/26/22 07:08 08/26/22 07:08 Labs: Abnormal Lab Results - Last 24 Hours (Table) 08/26/22 08/26/22 Range/Units 10:52 15:25 Troponin I 1.340 H* 1.310 H* (0.000-0.034) ng/mL
[2022-08-27] MEDS ORDERED: ACETAMINOPHEN TAB 325 MG TAB PO PRN (11:35)
--- NOTE | 2022-08-27 11:44 | P.PN ---
Subjective Progress Note Date: 08/27/22 I am seeing this patient in new consultation today 08/25/2022 on the cardiac stepdown unit status post operative day #1 for an elective laparoscopic repair of hiatal hernia. Patient is a 52-year-old white female with past medical history significant for hiatal hernia, GERD, hyperlipidemia, cholecystectomy, prior gastric sleeve, depression. The procedure was reportedly completed without complications. Following the procedure, the patient developed acute shortness of breath and hypoxia. No reported episodes of nausea, vomiting, aspiration. Chest x-ray indicated diffuse interstitial infiltrates indicating possible pulmonary vascular congestion versus interstitial pneumonitis. The patient was empirically started on Zosyn. A follow-up chest CTA showed no evidence of pulmonary embolism. It did show cardiomegaly with bilateral pleural effusions and perihilar groundglass opacities correlating for possible pulmonary edema. NT proBNP was significantly elevated at 18,900. The patient has been given 2 doses of Lasix so far today. She reports good urine output, however, this has not been recorded. There is an echocardiogram scheduled for the morning. She is currently resting in bed, on 12 L high flow nasal cannula, in no significant distress. She denies any chest pain, heart palpitations, lower extremity swelling, orthopnea, PND. ECG shows no obvious evidence of acute ischemic event. She does have a occasional nonproductive cough. No fevers. Initial CBC shows a WBC count of 20.4, hemoglobin 13.4, hematocrit 40.8, platelets 392. BMP was unremarkable. Vital signs are stable. Progress note 08/26/2022. 52-year-old female seen in consultation for shortness of breath, and hypoxemia. The patient's chest x-ray suggested CHF, and the patient's N-terminal proBNP was quite high at over 18,000. The patient's feeling much better now. She's been weaned down to room air. She's not receiving any IV fluids. She has been seen by cardiology. She may or may not be discharged today. White count 9.9, hemoglobin 14.1, hematocrit 43.8, and platelet count was normal. Sodium 138, potassium 3.6, chlorides 99, CO2 35, BUN 11, creatinine 0.66 The patient is seen today 08/27/2022 in follow-up on the selective care unit. She is currently sitting up in bed. Awake and alert in no acute distress. She did undergo cardiac catheterization yesterday and was found to have no obstru ctive coronary artery disease. 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 Her ejection fraction is 30-35%. She had an episode of shortness of breath and fluid volume overload and day after having an elective hiatal hernia repair earlier this week. Postoperative day #4. Denies any worsening shortness of breath cough or congestion. She is maintaining good O2 saturations in the 90s on room air. He remains on oral Lasix and Aldactone. Heparin for DVT prophylaxis. Antibiotics in the form of Zosyn. Objective - Vital Signs Vital signs: Vital Signs Temp 98.4 F 08/27/22 08:00 Pulse 81 08/27/22 08:00 Resp 16 08/27/22 08:00 BP 91/65 08/27/22 08:00 Pulse Ox 95 08/27/22 08:00 FiO2 21 08/26/22 08:19 Intake & Output 08/26/22 08/27/22 08/27/22 18:59 06:59 18:59 Intake Total 400 310 Output Total 200 Balance 200 310 Weight 68.5 kg Intake: IV 400 Intake, IV Titration 100 Amount Piperacillin-Tazobactam 3 100 .375 gm In Sodium Chloride 0.9% 100 ml @ 25 mls/hr IVPB Q8HR [facility] Rx# :[id number] Oral 210 Output: Urine 200 Other: Voiding Method Toilet Toilet # Voids 2 - Exam GENERAL EXAM: Alert, active, pleasant 52-year-old female, on room air, comfortable in no apparent distress. HEAD: Normocephalic. EYES: Normal reaction of pupils, equal size. NOSE: Clear with pink turbinates. THROAT: No erythema or exudates. NECK: No masses, no JVD. CHEST: No chest wall deformity. LUNGS: Equal air entry with pickles in the posterior bases. CVS: S1 and S2 normal with no audible murmur, regular rhythm. ABDOMEN: Incisions clean dry well approximated. No hepatosplenomegaly, normal bowel sounds, no guarding or rigidity. SPINE: No scoliosis or deformity SKIN: No rashes CENTRAL NERVOUS SYSTEM: No focal deficits, tone is normal in all 4 extremities. EXTREMITIES: There is no peripheral edema. No clubbing, no cyanosis. Peripheral pulses are intact. - Labs CBC & Chem 7: 08/26/22 07:08 06/15/23 07:08 Labs: Abnormal Lab Results - Last 24 Hours (Table) 08/26/22 08/26/22 Range/Units 10:52 15:25 Troponin I 1.340 H* 1.310 H* (0.000-0.034) ng/mL Assessment and Plan Assessment: Post operative day #4 following an elective laparoscopic repair of hiatal hernia. Tolerating a full liquid diet Acute hypoxemic respiratory failure, likely secondary to fluid overload and pulmonary edema. Echocardiogram revealed severely impaired left ventricular systolic function with ejection fraction 30-35%. 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 Chest CTA shows cardiomegaly, bilateral small pleural effusions, and perihilar groundglass opacities. NT proBNP was significantly elevated at 18,900. Leukocytosis, likely reactive following surgery. Preoperative bradycardia, resolved. Troponin leak, cardiac catheterization from 08/26/2022 did not reveal obstructive coronary artery disease GERD, without esophagitis. Hyperlipidemia. History of cholecystectomy. History of prior sleeve gastrectomy. Depression. Plan: The patient was seen and evaluated Echocardiogram, cardiac catheterization report, labs and medications reviewed Currently stable and on room air Follow-up chest x-ray in a.m. Probable discharge in the a.m. Continued on diuretics We will continue to follow I have personally seen and examined the patient, performed the documentation and the assessment and plan as written. Number of minutes spent on the visit: 10.
--- NOTE | 2022-08-27 13:25 | P.PN ---
Subjective HISTORY OF PRESENT ILLNESS: This is a 52-year-old female who underwent laparoscopic hernia repair with Dr. Corona. Patient developed shortness of breath postoperatively and received IV Lasix. Echocardiogram was performed revealing ejection fraction 30%. Patient was also found to have elevated troponins. She underwent cardiac catheterization yesterday with Dr. Paez revealing normal coronary arteries. Patient examined this morning at the bedside. She denies chest pain or pressure. She denies shortness of breath. Patient's vital signs are stable. Patient was slightly hypotensive yesterday and her blood pressures have improved today with a systolic greater than 100. PHYSICAL EXAM: VITAL SIGNS: Reviewed. GENERAL: Well-developed in no acute distress. NECK: Supple. No JVD or thyromegaly LUNGS: Respirations even and unlabored. Lungs essentially clear to auscultation bilaterally. HEART: Regular rate and rhythm. S1 and S2 heard. EXTREMITIES: Normal range of motion. No clubbing or cyanosis. Peripheral pulses intact. No lower extremity edema ASSESSMENT: Status post laparoscopic hiatal hernia repair Non-STEMI, status post cardiac catheterization revealing normal coronary arteries Acute congestive heart failure with reduced EF, 30% Hypotension, improving Hyperlipidemia PLAN: Continue oral Lasix and Aldactone Patient with slight improvement in her blood pressures today with a systolic greater than 100, although she continues to have some dizziness. Patient not able to tolerate additional cardiomyopathy medications at this time. This can be readdressed on an outpatient basis Continue to monitor patient for an additional 24 hours Nurse practitioner note has been reviewed by physician. Signing provider agrees with the documented findings, assessment, and plan of care. Objective - Vital Signs Vital signs: Vital Signs Temp 98.4 F 08/27/22 08:00 Pulse 70 08/27/22 12:00 Resp 16 08/27/22 08:00 BP 93/60 08/27/22 12:00 Pulse Ox 96 08/27/22 12:00 FiO2 21 08/26/22 08:19 Intake & Output 08/26/22 08/27/22 08/27/22 18:59 06:59 18:59 Intake Total 400 420 Output Total 200 Balance 200 420 Weight 68.5 kg Intake: IV 400 Intake, IV Titration 100 Amount Piperacillin-Tazobactam 3 100 .375 gm In Sodium Chloride 0.9% 100 ml @ 25 mls/hr IVPB Q8HR [facility] Rx# :[id number] Oral 320 Output: Urine 200 Other: Voiding Method Toilet Toilet # Voids 2 - Labs CBC & Chem 7: 08/26/22 07:08 08/26/22 07:08 Labs: Abnormal Lab Results - Last 24 Hours (Table) 08/26/22 Range/Units 15:25 Troponin I 1.310 H* (0.000-0.034) ng/mL
--- NOTE | 2022-08-27 15:00 | CDI ---
Documentation Clarification Form Date: 08/27/2022 12:55:17 PM From: Ramya Rojas RN CCDS Phone: [phone] Admit Date: 08/24/2022 04:22:00 PM Patient Name: Alejandra Ruvalcaba Visit Number: [id number] Discharge Date: ATTENTION: The Clinical Documentation Specialists (CDI) and [facility] Coding Staff appreciate your assistance in clarifying documentation. Please respond to the clarification below the line at the bottom and electronically sign. The CDI & [facility] Coding staff will review the response and follow-up if needed. Please note: Queries are made part of the Legal Health Record. If you have any questions, please contact the author of this message via ITS. Dr. Jose Francisco Jennings NSTEMI is documented 08/26, Cardiology consult. Additional clarification is requested. History/Risk Factors: 52-year-old female presented for an elective Laparoscopic repair of hiatal hernia on 08/23. Medical history: HLD, HTN, Hypothyroidism. 08/24, Medicine consult. Clinical Indicators: Troponin, 08/26: 1.780; 1.340; 1.310 BNP, 08/24: [id number] Medicine consult, 08/24: ECHO, 08/25: EF 30-35% Severely impaired left ventricular systolic function with segmental wall motion abnormality. Mild mitral and tricuspid regurgitation EKG Results, 08/24: Normal sinus rhythm. Low voltage QRS, Septal infarct, age undetermined. CXR, 08/24: Correlate for interstitial pneumonitis or mild venous congestion. Patchy left suprahilar area of early infiltrate in the differential diagnosis. ECHO, 08/25: EF 30-35% Severely impaired left ventricular systolic function with segmental wall motion abnormality. Mild mitral and tricuspid regurgitation. CXR, 08/25: Increasing bilateral lower lobe consolidation or pneumonia with small effusion. Interstitial pattern may represent interstitial pneumonitis or mild venous congestion. Cardiology, 08/26: EKG revealed evidence of old anteroseptal UT with nonspecific ST-T changes.I have ordered a troponin stat, and this came to be 1.78.Possibility of a Perioperative myocardial infarction should be considered. Treatment: 06/24 Lasix 40mg IV x 1; 08/24 Lasix 20mg IV x 1; 08/24 08/26 Lasix 40mg IV Q12H; 08/26 Aldactone 12.5mg PO Daily; 08/27 Lasix 20mg PO Daily; 08/23 Cardiac catheterization. Cardiology consult above. Please clarify the NSTEMI, if known: [ ] Heart failure due to NSTEMI [ ] Unable to determine [ ] Other Condition, please specify (Template Last Revised: May 2020) MTDD
[2022-08-27] MEDS: ATORVASTATIN 10 MG TAB PO SCH (20:04)
[2022-08-27] MEDS: traZODone HCL 50 MG TAB PO SCH (20:04)
[2022-08-28] MEDS: PIPERACILLIN-TAZOBACTAM 3.375 GM in SODIUM CHLORIDE 0.9% 100 ML IVPB SCH ×2 (00:06→09:23)
--- NOTE | 2022-08-28 06:55 | XR ---
EXAMINATION TYPE: XR chest 1V portable DATE OF EXAM: 08/28/2022 6:52 AM COMPARISON: Chest radiographs from 08/25/2022 TECHNIQUE: XR chest 1V portable Frontal view of the chest. CLINICAL INDICATION:Female, 52 years old with history of CHF; FINDINGS: Lungs/Pleura: There is no evidence of pleural effusion, focal consolidation, or pneumothorax. Pulmonary vascularity: Unremarkable. Heart/mediastinum: Cardiomediastinal silhouette is unremarkable. Musculoskeletal: No acute osseous pathology. IMPRESSION: No acute cardiopulmonary disease/process.
--- NOTE | 2022-08-28 07:34 | P.PN ---
Subjective Progress Note Date: 08/28/22 Principal diagnosis: Stress-induced cardiomyopathy The patient is a pleasant 52-year-old female patient who was admitted to the hospital and underwent laparoscopic hernia surgery complicated by acute non-ST elevation myocardial infarction and subsequently heart catheterization was performed and showed normal coronaries beach she underwent an echo which showed finding consistent with stress-induced cardiomyopathy. Joints 2022 The patient was seen and evaluated this morning. She is asymptomatic and she is hemodynamically stable. From the cardiovascular standpoint of view, the patient can be discharged home today. On examination she is euvolemic. She is hemodynamically stable with marginal blood pressure. Assessment Stress-induced cardiomyopathy Plan Continue the current medical regimen The patient can be discharged home Objective - Vital Signs Vital signs: Vital Signs Temp 98 F 08/28/22 04:00 Pulse 68 08/28/22 04:00 Resp 16 08/28/22 04:00 BP 100/62 08/28/22 04:00 Pulse Ox 97 08/28/22 04:00 FiO2 21 08/26/22 08:19 Intake & Output 08/27/22 08/28/22 08/28/22 18:59 06:59 18:59 Intake Total 730 Balance 730 Weight 68 kg Intake: Intake, IV Titration 100 Amount Piperacillin-Tazobactam 3 100 .375 gm In Sodium Chloride 0.9% 100 ml @ 25 mls/hr IVPB Q8HR [facility] Rx# :[id number] Oral 630 Other: Voiding Method Toilet Toilet # Voids 3 2 # Bowel Movements 2 - Labs CBC & Chem 7: 08/26/22 07:08 08/26/22 07:08
--- NOTE | 2022-08-28 09:15 | P.DS ---
Providers Date of admission: 08/24/22 16:22 Expected date of discharge: 08/28/22 Attending physician: Harrison Corona Consults: 08/23/22 13:11 Consult Physician Routine Consulting Provider: Jose Francisco Jennings Consult Reason/Comments: Medical management Do you want consulting provider notified?: Yes 08/24/22 15:05 Consult Physician Routine Consulting Provider: Vinny Gutierrez Consult Reason/Comments: hypoxia, shortness of breath Do you want consulting provider notified?: Yes 08/26/22 07:53 Consult Physician Routine Consulting Provider: Yunier Paez Consult Reason/Comments: CHF, EF 30% Do you want consulting provider notified?: Yes Primary care physician: Jose Francisco Jennings Hospital Course: Refer to the hospital chart for details. Patient underwent elective laparoscopic repair hiatal hernia. Postoperatively the patient had evidence of heart failure and low ejection fraction. She underwent cardiac catheterization which was normal. Patient diagnosed with stress cardiomyopathy. Doing well today. No shortness of breath. No pain. Tolerating liquids. She is anxious to go home. We'll discharge. Plan - Discharge Summary Discharge Rx Participant: Yes New Discharge Prescriptions: New Acetaminophen Tab [Tylenol Tab] 650 mg PO Q4H PRN #30 tablet PRN Reason: Pain No Action traZODone HCL [Desyrel] 50 mg PO HS busPIRone HCl [Buspar] 15 mg PO BID Naltrexone HCl 50 mg PO QAM Escitalopram [Lexapro] 20 mg PO QAM Atorvastatin [Lipitor] 10 mg PO HS Omeprazole [PriLOSEC] 20 mg PO BID Estrogen,Con/M-Progest Acet [Prempro 0.3 mg-1.5 mg Tablet] 1 each PO DAILY Discharge Medication List Naltrexone HCl 50 mg PO QAM 06/21/22 [History] Omeprazole [PriLOSEC] 20 mg PO BID 06/21/22 [History] busPIRone HCl [Buspar] 15 mg PO BID 06/21/22 [History] traZODone HCL [Desyrel] 50 mg PO HS 06/21/22 [History] Escitalopram [Lexapro] 20 mg PO QAM 07/14/22 [History] Estrogen,Con/M-Progest Acet [Prempro 0.3 mg-1.5 mg Tablet] 1 each PO DAILY 07/14/22 [History] Atorvastatin [Lipitor] 10 mg PO HS 07/19/22 [History] Acetaminophen Tab [Tylenol Tab] 650 mg PO Q4H PRN #30 tablet 08/27/22 [Rx] Follow up Appointment(s)/Referral(s): Yunier Paez MD [STAFF PHYSICIAN] - 1 Week Harrison Corona MD [STAFF PHYSICIAN] - 1 Week Activity/Diet/Wound Care/Special Instructions: No lifting over 10 pounds Shower daily. No soaking or tub baths for 2 weeks Very light activity until you are reevaluated at your follow up appointment with your surgeon Continue a full liquid diet for the next 2 weeks
[2022-08-28] MEDS: busPIRone HCl 5 MG TAB PO SCH (09:22)
[2022-08-28] MEDS: FUROSEMIDE 20 MG TAB PO SCH (09:22)
[2022-08-28] MEDS: ESCITALOPRAM 20 MG TAB PO SCH (09:22)
[2022-08-28] MEDS: SPIRONOLACTONE 25 MG TAB PO SCH (09:22)
[2022-08-28] MEDS: ASPIRIN 81 MG PO SCH (09:22)
[2022-08-28] MEDS: HEPARIN SODIUM,PORCINE/PF 5,000 UNIT/0.5 ML SYRINGE SQ SCH (09:23)
[2022-08-28 11:00] VITALS: BP 102/65; TEMP 97.5
--- NOTE | 2022-08-28 11:02 | P.PN ---
Subjective Progress Note Date: 08/28/22 Principal diagnosis: Hypoxemia. I am seeing this patient in new consultation today 08/25/2022 on the cardiac stepdown unit status post operative day #1 for an elective laparoscopic repair of hiatal hernia. Patient is a 52-year-old white female with past medical history significant for hiatal hernia, GERD, hyperlipidemia, cholecystectomy, prior gastric sleeve, depression. The procedure was reportedly completed without complications. Following the procedure, the patient developed acute shortness of breath and hypoxia. No reported episodes of nausea, vomiting, aspiration. Chest x-ray indicated diffuse interstitial infiltrates indicating possible pulmonary vascular congestion versus interstitial pneumonitis. The patient was empirically started on Zosyn. A follow-up chest CTA showed no evidence of pulmonary embolism. It did show cardiomegaly with bilateral pleural effusions and perihilar groundglass opacities correlating for possible pulmonary edema. NT proBNP was significantly elevated at 18,900. The patient has been given 2 doses of Lasix so far today. She reports good urine output, however, this has not been recorded. There is an echocardiogram scheduled for the morning. She is currently resting in bed, on 12 L high flow nasal cannula, in no significant distress. She denies any chest pain, heart palpitations, lower extremity swelling, orthopnea, PND. ECG shows no obvious evidence of acute ischemic event. She does have a occasional nonproductive cough. No fevers. Initial CBC shows a WBC count of 20.4, hemoglobin 13.4, hematocrit 40.8, geovanna telets 392. BMP was unremarkable. Vital signs are stable. Progress note 08/26/2022. 52-year-old female seen in consultation for shortness of breath, and hypoxemia. The patient's chest x-ray suggested CHF, and the patient's N-terminal proBNP was quite high at over 18,000. The patient's feeling much better now. She's been weaned down to room air. She's not receiving any IV fluids. She has been seen by cardiology. She may or may not be discharged today. White count 9.9, hemoglobin 14.1, hematocrit 43.8, and platelet count was normal. Sodium 138, potassium 3.6, chlorides 99, CO2 35, BUN 11, creatinine 0.66. Progress note dated 08/28/2022. 52-year-old female who was seen after her laparoscopic hiatal hernia repair. The patient was also seen by cardiology, for possible stress cardiomyopathy. Currently, she is on room air, and not receiving any IV fluids. Initially, she had fluid overload/CHF, and required high flow oxygen. The patient's doing much better today, and will likely be discharged home today. She will follow-up with cardiology. No new labs today. Chest x-ray today has returned to normal. Objective - Vital Signs Vital signs: Vital Signs Temp 98 F 08/28/22 04:00 Pulse 68 08/28/22 04:00 Resp 16 08/28/22 04:00 BP 100/62 08/28/22 04:00 Pulse Ox 97 08/28/22 04:00 FiO2 21 08/26/22 08:19 Intake & Output 08/27/22 08/28/22 08/28/22 18:59 06:59 18:59 Intake Total 730 Balance 730 Weight 68 kg Intake: Intake, IV Titration 100 Amount Piperacillin-Tazobactam 3 100 .375 gm In Sodium Chloride 0.9% 100 ml @ 25 mls/hr IVPB Q8HR [facility] Rx# :[id number] Oral 630 Other: Voiding Method Toilet Toilet # Voids 3 2 # Bowel Movements 2 - Exam No acute distress, oriented 3. Currently on room air. HEENT examination is grossly unremarkable. Neck supple. Full range of motion. No adenopathy thyromegaly or neck vein distention. Cardiovascular examination reveals regular rhythm rate. S1-S2 normal. No S3 or S4. No discernible murmur noted. Heart rate 74 beats per minutes. Lungs reveal clear breath sounds. Breath sounds are equal bilaterally. No adventitious lung sounds including wheezes rhonchi or crackles. Saturations are 97 %. Abdomen soft bowel sounds are heard. No masses or tenderness. Extremities are intact. No cyanosis clubbing or edema. Skin is without rash or lesion. Neurologic examination is brief but nonfocal. - Labs CBC & Chem 7: 08/26/22 07:08 08/26/22 07:08 Assessment and Plan Assessment: Post operative day #5 following an elective laparoscopic repair of hiatal hernia. Acute hypoxemic respiratory failure, likely secondary to fluid overload and pulmonary edema. Chest CTA shows cardiomegaly, bilateral small pleural effusions, and perihilar groundglass opacities. NT proBNP was significantly elevated at 18,900. Suspected stress cardiomyopathy. Leukocytosis, likely reactive following surgery. Preoperative bradycardia, resolved. GERD, without esophagitis. Hyperlipidemia. History of cholecystectomy. History of prior sleeve gastrectomy. Depression. Plan: Plan dated 08/26/2022. The patient is being seen by cardiology for possible abnormal echocardiogram. The patient is doing very well. She's on room air. She's feeling much better. I believe the problem was primarily fluid overload/CHF. This may relate to her underlying cardiac issue, which cardiology is currently evaluating. From the pulmonary standpoint, the patient could be considered for discharge. Labs, x- rays, and medications are reviewed. Plan dated 08/28/2022. The patient is felt to be doing better, and possibly being discharged home today. The patient will follow-up with cardiology. No need to follow-up with pulmonary medicine. The patient was suspected to have a stress cardiomyopathy. The patient's currently on room air. Her chest x-ray has returned to normal. She has no respiratory complaints at this time. Time with Patient: Less than 30
[2022-08-28 12:28] VITALS: PULSE 70
--- NOTE | 2022-08-28 12:32 | P.PN ---
Subjective Progress Note Date: 08/28/22 This is a 52-year-old female who underwent laparoscopic hernia repair with Dr. Corona. Patient developed shortness of breath postoperatively and received IV Lasix. Echocardiogram was performed revealing ejection fraction 30%. Patient was also found to have elevated troponins. She underwent cardiac catheterization with Dr. Paez revealing normal coronary arteries. 08/28. Patient seen and examined. Denies any chest pain or shortness of breath. Tolerating diet. Currently on clear liquid diet REVIEW OF SYSTEMS: CONSTITUTIONAL: No fever, no malaise,. CARDIOVASCULAR: No chest pain, no palpitations, no syncope. PULMONARY: No shortness of breath, no cough, GASTROINTESTINAL: No diarrhea, no nausea, no vomiting, no abdominal pain. NEUROLOGICAL: No headaches, no weakness, PHYSICAL EXAMINATION: GENERAL: The patient is alert and oriented x3, not in any acute distress. Well developed, well nourished. HEENT: Pupils are round and equally reacting to light. EOMI. No scleral icterus. No conjunctival pallor. Normocephalic, atraumatic. No pharyngeal erythema. No thyromegaly. CARDIOVASCULAR: S1 and S2 present. No murmurs, rubs, or gallops. PULMONARY: Chest is clear to auscultation, no wheezing or crackles. ABDOMEN: Soft, nontender, nondistended, normoactive bowel sounds. No palpable organomegaly. Laparoscopic surgical incision seen MUSCULOSKELETAL: No joint swelling or deformity. EXTREMITIES: No cyanosis, clubbing, or pedal edema. NEUROLOGICAL: Gross neurological examination did not reveal any focal deficits. SKIN: No rashes. Assessment and plan Status post laparoscopic hiatal hernia repair Non-STEMI, status post cardiac catheterization revealing normal coronary arteries Acute congestive heart failure with reduced EF, 30% Hypotension, improving Hyperlipidemia Plan; Monitor vital signs Monitor CBC Monitor CMP Continue current treatment. Patient medically stable for discharge Cardiology cleared the patient for discharge DVT prophylaxis: Objective - Vital Signs Vital signs: Vital Signs Temp 97.5 F L 08/28/22 08:00 Pulse 74 08/28/22 08:00 Resp 16 08/28/22 08:00 BP 102/65 08/28/22 08:00 Pulse Ox 97 08/28/22 12:01 FiO2 21 08/26/22 08:19 Intake & Output 08/27/22 08/28/22 08/28/22 18:59 06:59 18:59 Intake Total 730 100 Balance 730 100 Weight 68 kg Intake: Intake, IV Titration 100 100 Amount Piperacillin-Tazobactam 3 100 100 .375 gm In Sodium Chloride 0.9% 100 ml @ 25 mls/hr IVPB Q8HR [facility] Rx# :[id number] Oral 630 Other: Voiding Method Toilet Toilet Toilet # Voids 3 2 # Bowel Movements 2 - Labs CBC & Chem 7: 08/26/22 07:08 08/26/22 07:08
== END 2022-08-28 13:41 | disposition home or self-care (01) | DRG 981 ==
LOC: OR 09:10 → 4SSUR 14:41 → OR 08-24 16:22 → 4SSUR 08-24 16:22 → 3SCARD 08-24 22:38
PROVIDERS: ADMIT Surgery; ATTEND Surgery
PROC: 0BQT4ZZ Repair Diaphragm, Percutaneous Endoscopic Approach (ICD-10-PCS; principal; 2022-08-23 11:15)
PROC: 3E0T3BZ Introduction of Anesthetic Agent into Peripheral Nerves and Plexi, Percutaneous Approach (ICD-10-PCS; principal; 2022-08-23 11:15)
PROC: 4A023N7 Measurement of Cardiac Sampling and Pressure, Left Heart, Percutaneous Approach (ICD-10-PCS; 2022-08-26)
PROC: B2111ZZ Fluoroscopy of Multiple Coronary Arteries using Low Osmolar Contrast (ICD-10-PCS; 2022-08-26)
DX: I11.0 Hypertensive heart disease with heart failure (principal); I21.4 Non-ST elevation (NSTEMI) myocardial infarction; J96.01 Acute respiratory failure with hypoxia; I50.21 Acute systolic (congestive) heart failure; I95.9 Hypotension, unspecified; I08.1 Rheumatic disorders of both mitral and tricuspid valves; K44.9 Diaphragmatic hernia without obstruction or gangrene; D72.829 Elevated white blood cell count, unspecified; F10.21 Alcohol dependence, in remission; E03.9 Hypothyroidism, unspecified; E78.00 Pure hypercholesterolemia, unspecified; F32.A Depression, unspecified; K21.00 Gastro-esophageal reflux disease with esophagitis, without bleeding; I25.2 Old myocardial infarction; Z79.890 Hormone replacement therapy; Z79.899 Other long term (current) drug therapy; Z98.84 Bariatric surgery status; Z91.040 Latex allergy status; Z88.0 Allergy status to penicillin
CPT/HCPCS: 71045; 71275; 74177; 80048; 80053; 81025; 83880; 84484; 85025; 93005; 93306; 93458; 94760

== ENCOUNTER 2022-09-07 10:27 | Emergency (ER) | payer OTHER ==
[2022-09-07 10:42] VITALS: RESP 18
--- NOTE | 2022-09-07 11:25 | ED ---
General Adult HPI - General Chief complaint: Syncope Stated complaint: Syncope,Dizzines,Thoart Pain Time Seen by Provider: 09/07/22 10:45 Source: patient, family, RN notes reviewed Mode of arrival: ambulatory Limitations: no limitations - History of Present Illness Initial comments: 52-year-old female with past medical history significant for hiatal hernia and presents to the emergency department with a chief complaint of generalized fatigue. Patient reports that she was recently admitted at this facility for hiatal hernia repair approximately 2 weeks ago. She reports she was admitted as she had pleural effusions. She reports she has felt short of breath ever since. She reports that last night she had a syncopal episode where she did hit her head and lost consciousness for approximately 10 seconds. She denies any anticoagulant use. Today she reports dizziness, lightheadedness, and a sensation in her throat where it is closing. She has been taking her medications as prescribed. She denies any cough, dyspnea, chest pain, pal pitations, nausea, vomiting, abdominal pain melena, hematochezia - Related Data Home Medications Medication Instructions Recorded Confirmed Naltrexone HCl 50 mg PO DAILY 06/21/22 09/07/22 Omeprazole [PriLOSEC] 20 mg PO BID 06/21/22 09/07/22 busPIRone HCl [Buspar] 15 mg PO BID 06/21/22 09/07/22 traZODone HCL [Desyrel] 50 mg PO HS 06/21/22 09/07/22 Escitalopram [Lexapro] 20 mg PO DAILY 07/14/22 09/07/22 Estrogen,Con/M-Progest Acet 1 each PO DAILY 07/14/22 09/07/22 [Prempro 0.3 mg-1.5 mg Tablet] Atorvastatin [Lipitor] 10 mg PO HS 07/19/22 09/07/22 Metoprolol Succinate (ER) [Toprol 12.5 mg PO DAILY 09/07/22 09/07/22 Xl] Previous Rx's Medication Instructions Recorded Acetaminophen Tab [Tylenol Tab] 650 mg PO Q4H PRN #30 tablet 08/27/22 Aspirin [Adult Low Dose Aspirin EC] 81 mg PO DAILY #30 tab 08/28/22 Furosemide [Lasix] 20 mg PO DAILY #30 tab 08/28/22 Spironolactone [Aldactone] 12.5 mg PO DAILY #30 tab 08/28/22 Allergies Allergy/AdvReac Type Severity Reaction Status Date / Time latex Allergy Rash/Hives, Verified 09/07/22 14:38 red skin, lip swelling Penicillins Allergy Unknown Verified 09/07/22 14:38 Childhood Review of Systems ROS Statement: Those systems with pertinent positive or pertinent negative responses have been documented in the HPI. ROS Other: All systems not noted in ROS Statement are negative. 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 Past Anesthesia/Blood Transfusion Reactions: Motion Sickness, Postoperative Nausea & Vomiting (PONV) Additional Past Anesthesia/Blood Transfusion Reaction / Comment(s): "=Hard to wake up." Past Psychological History: Depression Smoking Status: Never smoker Past Alcohol Use History: Rare Past Drug Use History: None Reported - Past Family History Mother Family Medical History: No Reported History Father Family Medical History: Diabetes Mellitus, Hyperlipidemia, Hypertension General Exam - General Exam Comments Initial Comments: General: Alert, in no acute distress Head: atraumatic normocephalic. Eyes PERRL, EOMI intact, mucous membranes moist Respiratory: Lungs clear to auscultation bilaterally Cardiovascular: Bradycardic Abdominal: Soft without guarding or rebound Extremities: Normal inspection with full range of motion and normal capillary refill Neuroogic: alert and oriented 3, CN II-XII intact, able to ambulate with steady gait Skin: warm dry and intact with normal color Limitations: no limitations Course Vital Signs 09/07/22 09/07/22 09/07/22 10:38 12:31 14:05 Temperature 98 F 98.7 F Pulse Rate 48 L 51 L 53 L Respiratory 18 18 Rate Blood Pressure 108/73 92/68 95/59 O2 Sat by Pulse 99 99 Oximetry 09/07/22 15:59 Temperature 98.4 F Pulse Rate 52 L Respiratory 18 Rate Blood Pressure 105/61 O2 Sat by Pulse 98 Oximetry - Reevaluation(s) Reevaluation #1: 09/07/22 14:[address] Jennings who recommends the patient is stable enough for discharge and to follow-up with cardiology tomorrow at 10 AM EKG Findings - EKG Comments: EKG Findings:: I interpreted the following: EKG performed at 10:53 rate 48 bpm and sinus bradycardia [place] interval 136, QRS duration 79, QT/QTc 438/436 Medical Decision Making - Medical Decision Making Was pt. sent in by a medical professional or institution (, [facility], ENSEMBLE MEMBER, urgent care, hospital, or longterm...) When possible be specific @ -[No] Did you speak to anyone other than the patient for history (EMS, parent, family, police, friend...)? What history was obtained from this source @ -[No] Did you review nursing and triage notes (agree or disagree)? Why? @ -[I reviewed and agree with nursing and triage notes] Were old charts reviewed (outside hosp., previous admission, EMS record, old EKG, old radiological studies, urgent care reports/EKG's, longterm records)? Report findings @ -[No old charts were reviewed] Differential Diagnosis (chest pain, altered mental status, abdominal pain women, abdominal pain men, vaginal bleeding, weakness, fever, dyspnea, syncope, headache, dizziness, GI bleed, back pain, seizure, CVA, palpatations, mental health, musculoskeletal)? @ -[not applicable] EKG interpreted by me (3pts min.). @ -[As above] X-rays interpreted by me (1pt min.). @ xa negative for any interpleural process CT interpreted by me (1pt min.). @ -[None done] U/S interpreted by me (1pt. min.). @ -[None done] What testing was considered but not performed or refused? (CT, X-rays, U/S, labs)? Why? @ -[None] What meds were considered but not given or refused? Why? @ -[None] Did you discuss the management of the patient with other professionals (professionals i.e. , [facility], ENSEMBLE MEMBER, lab, RT, psych nurse, social group worker, electrical test engineer, teacher, ambulance officer, special education case manager)? Give summary @ -[No] Was smoking cessation discussed for >3mins.? @ -[No] Was critical care preformed (if so, how long)? @ -[No] Were there social determinants of health that impacted care today? How? (Homelessness, low income, unemployed, alcoholism, drug addiction, transportation, low edu. Level, literacy, decrease access to med. care, assisted, rehab)? @ -[No] Was there de-escalation of care discussed even if they declined (Discuss DNR or withdrawal of care, Hospice)? DNR status @ -[No] What co-morbidities impacted this encounter? (DM, HTN, Smoking, COPD, CAD, Cancer, CVA, ARF, Chemo, Hep., AIDS, mental health diagnosis, sleep apnea, morbid obesity)? @ -[None] Was patient admitted / discharged? Hospital course, mention meds given and route, prescriptions, significant lab abnormalities, going to OR and other pertinent info. @ -Discharged. This is a 52-year-old female who presents the em ergency department with dizziness. Patient had a thorough history and physical exam performed on the emergency department. Physical exam is essentially unremarkable. Heart rate regular rate and rhythm, lungs are to auscultation bilaterally, abdomen soft and non-tender. Patient had lab work and imaging performed which was essentially unremarkable. He was given a liter of fluids while in the ED. Due to the extensive workup which was essentially negative. My belief that her bradycardia is due to the eighth 25 mg of metoprolol she's been taking daily for 2 days. She case was discussed with Chelsey, special education case manager to set up cardiology appointment for the patient tomorrow with Dr. Paez at 10 AM. I discussed the results in detail the patient verbalized understanding and all questions were addressed. Return precautions were discussed at length. Patient was discharged in stable condition. Case discussed with KEVIN Martinez who agrees with plan of care Undiagnosed new problem with uncertain prognosis? @ -[No] Drug Therapy requiring intensive monitoring for toxicity (Heparin, Nitro, Insulin, Cardizem)? @ -[No] Were any procedures done? @ -[No] Diagnosis/symptom? @ -Symptomatic bradycardia -Dizziness Acute, or Chronic, or Acute on Chronic? @ -Acute Uncomplicated (without systemic symptoms) or Complicated (systemic symptoms)? @ -Uncomplicated Side effects of treatment? @ -[No] Exacerbation, Progression, or Severe Exacerbation? @ -[No] Poses a threat to life or bodily function? How? (Chest pain, [place], [place], pneumonia, PE, COPD, DKA, ARF, appy, cholecystitis, CVA, Diverticulitis, Homicidal, Suicidal, threat to staff... and all critical care pts) @ -Low likelihood - Lab Data Result diagrams: 09/07/22 11:18 09/07/22 11:18 Lab Results 09/07/22 09/07/22 09/07/22 Range/Units 11:18 11:18 11:18 WBC 7.9 (3.8-10.6) k/uL RBC 4.74 (3.80-5.40) m/uL Hgb 14.3 (11.4-16.0) gm/dL Hct 44.6 (34.0-46.0) % MCV 94.1 (80.0-100.0) fL MCH 30.2 (25.0-35.0) pg MCHC 32.1 (31.0-37.0) g/dL RDW 12.8 (11.5-15.5) % Plt Count 415 (150-450) k/uL MPV 7.3 Neutrophils % 66 % Lymphocytes % 25 % Monocytes % 5 % Eosinophils % 1 % Basophils % 1 % Neutrophils # 5.2 (1.3-7.7) k/uL Lymphocytes # 2.0 (1.0-4.8) k/uL Monocytes # 0.4 (0-1.0) k/uL Eosinophils # 0.1 (0-0.7) k/uL Basophils # 0.1 (0-0.2) k/uL PT 9.7 (9.0-12.0) sec INR 0.9 (<1.2) APTT 19.6 L (22.0-30.0) sec Sodium (137-145) mmol/L Potassium (3.5-5.1) mmol/L Chloride (98-107) mmol/L Carbon Dioxide (22-30) mmol/L Anion Gap mmol/L BUN (7-17) mg/dL Creatinine (0.52-1.04) mg/dL Est GFR (CKD-EPI)AfAm (>60 ml/min/1.73 sqM) Est GFR (CKD-EPI)NonAf (>60 ml/min/1.73 sqM) Glucose (74-99) mg/dL Calcium (8.4-10.2) mg/dL Magnesium (1.6-2.3) mg/dL Total Bilirubin (0.2-1.3) mg/dL AST (14-36) U/L ALT (4-34) U/L Alkaline Phosphatase (38-126) U/L Troponin I (0.000-0.034) ng/mL Total Protein (6.3-8.2) g/dL Albumin (3.5-5.0) g/dL Urine Color Light Yellow Urine Appearance Clear (Clear) Urine pH 7.0 (5.0-8.0) Ur Specific [place] 1.009 (1.001-1.035) Urine Protein Negative (Negative) Urine Glucose (UA) Negative (Negative) Urine Ketones Negative (Negative) Urine Blood Negative (Negative) Urine Nitrite Negative (Negative) Urine Bilirubin Negative (Negative) Urine Urobilinogen <2.0 (<2.0) mg/dL Ur Leukocyte Esterase Negative (Negative) 09/07/22 09/07/22 09/07/22 Range/Units 11:18 11:18 14:05 WBC (3.8-10.6) k/uL RBC (3.80-5.40) m/uL Hgb (11.4-16.0) gm/dL Hct (34.0-46.0) % MCV (80.0-100.0) fL MCH (25.0-35.0) pg MCHC (31.0-37.0) g/dL RDW (11.5-15.5) % Plt Count (150-450) k/uL MPV Neutrophils % % Lymphocytes % % Monocytes % % Eosinophils % % Basophils % % Neutrophils # (1.3-7.7) k/uL Lymphocytes # (1.0-4.8) k/uL Monocytes # (0-1.0) k/uL Eosinophils # (0-0.7) k/uL Basophils # (0-0.2) k/uL PT (9.0-12.0) sec INR (<1.2) APTT (22.0-30.0) sec Sodium 138 (137-145) mmol/L Potassium 4.2 (3.5-5.1) mmol/L Chloride 103 (98-107) mmol/L Carbon Dioxide 28 (22-30) mmol/L Anion Gap 7 mmol/L BUN 13 (7-17) mg/dL Creatinine 0.68 (0.52-1.04) mg/dL Est GFR (CKD-EPI)AfAm >90 (>60 ml/min/1.73 sqM) Est GFR (CKD-EPI)NonAf >90 (>60 ml/min/1.73 sqM) Glucose 100 H (74-99) mg/dL Calcium 9.5 (8.4-10.2) mg/dL Magnesium 2.3 (1.6-2.3) mg/dL Total Bilirubin 0.8 (0.2-1.3) mg/dL AST 31 (14-36) U/L ALT 22 (4-34) U/L Alkaline Phosphatase 63 (38-126) U/L Troponin I 0.029 0.029 (0.000-0.034) ng/mL Total Protein 7.3 (6.3-8.2) g/dL Albumin 4.4 (3.5-5.0) g/dL Urine Color Urine Appearance (Clear) Urine pH (5.0-8.0) Ur Specific [place] (1.001-1.035) Urine Protein (Negative) Urine Glucose (UA) (Negative) Urine Ketones (Negative) Urine Blood (Negative) Urine Nitrite (Negative) Urine Bilirubin (Negative) Urine Urobilinogen (<2.0) mg/dL Ur Leukocyte Esterase (Negative) Disposition Clinical Impression: Bradycardia, Hypotension Disposition: HOME SELF-CARE Condition: Stable Instructions (If sedation given, give patient instructions): Hypotension (DC) Additional Instructions: Please see her scheduled cardiology appointment tomorrow at [address] Paez Please do not take metoprolol this evening or tomorrow Please return to the nearest emergency department if symptoms worsen or persist Is patient prescribed a controlled substance at d/c from ED?: No Referrals: Yunier Paez MD [STAFF PHYSICIAN] - 09/08/22 10:00 am (Appointment with CHEO Briggs) Jose Francisco Jennings DO [Primary Care Provider] - 1-2 days Time of Disposition: 14:09
[2022-09-07 11:30] LABS: Basophils # (A) 0.1 k/uL (0-0.2); Basophils % (A) 1 %; Eosinophils # (A) 0.1 k/uL (0-0.7); Eosinophils % (A) 1 %; HCT 44.6 % (34.0-46.0); HGB 14.3 gm/dL (11.4-16.0); Lymphocytes % (A) 25 %; MCH 30.2 pg (25.0-35.0); MCHC 32.1 g/dL (31.0-37.0); MCV 94.1 fL (80.0-100.0); Mean Platelet Volume 7.3; Monocytes # (A) 0.4 k/uL (0-1.0); Monocytes % (A) 5 %; Neutrophils # (A) 5.2 k/uL (1.3-7.7); Neutrophils % (A) 66 %; Platelet Count 415 k/uL (150-450); RBC 4.74 m/uL (3.80-5.40); RDW 12.8 % (11.5-15.5); WBC 7.9 k/uL (3.8-10.6)
[2022-09-07 11:37] LABS: ALT 22 U/L (4-34); AST 31 U/L (14-36); African American GFR (CKD) >90 (>60 ml/min/1.73 sqM); Albumin 4.4 g/dL (3.5-5.0); Alkaline Phosphatase 63 U/L (38-126); Anion Gap 7 mmol/L; Blood Urea Nitrogen 13 mg/dL (7-17); Calcium 9.5 mg/dL (8.4-10.2); Carbon Dioxide 28 mmol/L (22-30); Chloride 103 mmol/L (98-107); Glucose 100 mg/dL (74-99); Magnesium 2.3 mg/dL (1.6-2.3); Non-African American GFR(CKD) >90 (>60 ml/min/1.73 sqM); Potassium 4.2 mmol/L (3.5-5.1); Sodium 138 mmol/L (137-145); Total Bilirubin 0.8 mg/dL (0.2-1.3); Total Protein 7.3 g/dL (6.3-8.2)
[2022-09-07 11:42] LABS: INR 0.9 (<1.2); Prothrombin Time 9.7 sec (9.0-12.0)
[2022-09-07 11:47] LABS: Partial Thromboplastin Time 19.6 sec (22.0-30.0)
--- NOTE | 2022-09-07 12:18 | XR ---
EXAMINATION TYPE: XR chest 2V DATE OF EXAM: 09/07/2022 COMPARISON: Chest x-ray August 28, 2022 HISTORY: Bradycardia. TECHNIQUE: Frontal and lateral views of the chest are obtained. FINDINGS: There is no suspicious new focal air space opacity, pleural effusion, or pneumothorax seen . The cardiac silhouette size is stable and within normal limits. Overlying EKG leads are redemonstr ated. The osseous structures are intact. Surgical clips epigastric region again seen. IMPRESSION: No acute cardiopulmonary process. No significant change from prior.
[2022-09-07] MEDS ORDERED: SODIUM CHLORIDE 0.9% 1,000 ML IV ONE (12:45)
--- NOTE | 2022-09-07 13:07 | CT ---
EXAMINATION TYPE: CT brain cspine wo con CT DLP: 1357 mGycm, Automated exposure control for dose reduction was used. DATE OF EXAM: 09/07/2022 11:54 AM COMPARISON: None. CLINICAL INDICATION:Female, 52 years old with history of syncope; Syncope TECHNIQUE: Brain: Multiple axial CT images of the brain were obtained without IV contrast. Cspine: Axial CT images from the skull base to the inferior aspect of T2 we obtained without intraven ous contrast. Coronal and sagittal reformatted images were also reviewed. FINDINGS: Brain: Extra-axial spaces: No abnormal extra-axial fluid collections. Ventricular system: Within normal limits Cerebral parenchyma: No acute intraparenchymal hemorrhage or mass effect. The cabezas-white junction is well differentiated. Scattered hypoattenuating areas are seen within the white matter. Cerebellum: Unremarkable. Mass effect: No evidence of midline shift. Intracranial vasculature: unremarkable Soft tissues: Normal. Calvarium/osseous structures: No depressed skull fracture. Paranasal sinuses and mastoid air cells: Clear. Visualized orbits: Orbital contents are intact. Cervical spine: Fracture: None. Osseous structures: Multilevel degenerative disc disease changes with endplate spurring and disc oste ophyte complex's. Vertebral alignment: Within normal limits. Spinal canal/Neural Foramina: Disc osteophyte complexes at C5-C6 and C6-C7. With at least mild spinal canal stenosis. No evidence for significant neural foraminal stenosis. Neck soft tissues: Prevertebral soft tissues are within normal limits. Other: The airway is patent. The lung apices are clear. IMPRESSION: 1. No acute intracranial process. 2. Nonspecific white matter changes, likely secondary to chronic small vessel ischemic disease. 3. No evidence of cervical spine fracture. 4. Mild multilevel degenerative disc disease.
[2022-09-07 13:24] LABS: Appearance,Urine Clear (Clear); Bilirubin,Urine Negative (Negative); Blood,Urine Negative (Negative); Color,Urine Light Yellow; Glucose,Urine (UA) Negative (Negative); Ketones,Urine Negative (Negative); Leukocyte Esterase,Urine Negative (Negative); Nitrite,Urine Negative (Negative); Protein,Urine Negative (Negative); Specific Gravity,Urine 1.009 (1.001-1.035); Urobilinogen,Urine <2.0 mg/dL (<2.0)
[2022-09-07 16:05] VITALS: BP 105/61; PULSE 52; TEMP 98.4
== END 2022-09-07 16:09 | disposition home or self-care (01) ==
LOC: EC 10:27
DX: R00.1 Bradycardia, unspecified (principal); I95.9 Hypotension, unspecified; K21.9 Gastro-esophageal reflux disease without esophagitis; E78.5 Hyperlipidemia, unspecified; I10 Essential (primary) hypertension; F32.A Depression, unspecified; Z88.0 Allergy status to penicillin; Z91.040 Latex allergy status; Z79.899 Other long term (current) drug therapy
CPT/HCPCS: 36415; 70450; 71046; 72125; 80053; 81003; 83735; 84484; 85025; 85610; 85730; 93005; 96360; 99285

== ENCOUNTER 2022-10-22 19:38 | Emergency (ER) | payer BC, OTHER ==
[2022-10-22] MEDS ORDERED: ONDANSETRON 4 MG/2 ML VIAL IVP STA (20:09)
[2022-10-22] MEDS ORDERED: SODIUM CHLORIDE 0.9% 1,000 ML IV STA ×2 (20:09→20:47)
[2022-10-22] MEDS ORDERED: HYDROmorphone 0.5 MG/0.5 ML SYRINGE IVP STA (20:12)
[2022-10-22] MEDS ORDERED: .ACETAMINOPHEN IV (PEDS) 1,000 MG in EMPTY BAG 1 BAG IVPB STA (20:23)
[2022-10-22] MEDS ORDERED: KETOROLAC 15 MG/ML 1 ML VIAL IVP STA (20:23)
[2022-10-22] MEDS ORDERED: ACETAMINOPHEN IV (For NPO) 1,000 MG in EMPTY BAG 1 BAG IVPB STA (20:24)
[2022-10-22 21:02] LABS: Basophils % (A) 0 %; Eosinophils % (A) 0 %; HCT 43.7 % (34.0-46.0); HGB 14.7 gm/dL (11.4-16.0); Lymphocytes # (A) 1.1 k/uL (1.0-4.8); Lymphocytes % (A) 11 %; MCH 30.3 pg (25.0-35.0); MCHC 33.7 g/dL (31.0-37.0); Mean Platelet Volume 8.1; Monocytes # (A) 0.6 k/uL (0-1.0); Monocytes % (A) 6 %; Neutrophils # (A) 8.4 k/uL (1.3-7.7); Neutrophils % (A) 82 %; Platelet Count 411 k/uL (150-450); RBC 4.86 m/uL (3.80-5.40); WBC 10.3 k/uL (3.8-10.6)
[2022-10-22] MEDS ORDERED: PROCHLORPERAZINE INJ 10 MG/2 ML VIAL IVP STA (21:08)
--- NOTE | 2022-10-22 21:09 | ED ---
Abdominal Pain HPI - General Chief Complaint: Abdominal Pain Stated Complaint: Chest Pain/abd pain Time Seen by Provider: 10/22/22 20:09 Source: patient Mode of arrival: ambulatory Limitations: no limitations - History of Present Illness Initial Comments: Patient is a 52-year-old female presents to the emergency department for abdominal pain. Patient has pain in her upper middle abdomen. She had hiatal hernia surgery in [place] by Dr. Corona. Reports consistent pain since which worsened over the past couple days. She feels nauseous and has had no episodes of vomiting today, nonbloody. No fever or chills. No urinary symptoms. No changes in bowel habits. No chest pain or shortness of breath. She has history of cholecystectomy and gastric sleeve. States she has not drank alcohol in a long time. - Related Data Home Medications Medication Instructions Recorded Confirmed Naltrexone HCl 50 mg PO DAILY 06/21/22 10/22/22 Omeprazole [PriLOSEC] 20 mg PO BID 06/21/22 10/22/22 busPIRone HCl [Buspar] 15 mg PO BID 06/21/22 10/22/22 traZODone HCL [Desyrel] 50 mg PO HS 06/21/22 10/22/22 Escitalopram [Lexapro] 20 mg PO DAILY 07/14/22 10/22/22 Atorvastatin [Lipitor] 10 mg PO HS 07/19/22 10/22/22 Estrogen,Con/M-Progest Acet 1 tab PO DAILY 10/22/22 10/22/22 [Prempro 0.45-1.5 mg Tablet] Previous Rx's Medication Instructions Recorded Acetaminophen Tab [Tylenol Tab] 650 mg PO Q4H PRN #30 tablet 08/27/22 Acetaminophen Tab [Tylenol] 650 mg PO Q4H PRN #30 tab 10/22/22 Ibuprofen [Motrin] 600 mg PO Q6HR PRN #30 tab 10/22/22 Ondansetron Odt [Zofran Odt] 4 mg PO Q8HR PRN #10 tab 10/22/22 Pantoprazole [Protonix] 40 mg PO DAILY #14 tab 10/22/22 Allergies Allergy/AdvReac Type Severity Reaction Status Date / Time latex Allergy Rash/Hives, Verified 10/22/22 20:51 red skin, lip swelling Penicillins Allergy Unknown Verified 10/22/22 20:51 Childhood Review of Systems ROS Statement: Those systems with pertinent positive or pertinent negative responses have been documented in the HPI. ROS Other: All systems not noted in ROS Statement are negative. 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 Past Anesthesia/Blood Transfusion Reactions: Motion Sickness, Postoperative Nausea & Vomiting (PONV) Additional Past Anesthesia/Blood Transfusion Reaction / Comment(s): "=Hard to wake up." Past Psychological History: Depression Smoking Status: Never smoker Past Alcohol Use History: Rare Past Drug Use History: None Reported - Past Family History Mother Family Medical History: No Reported History Father Family Medical History: Diabetes Mellitus, Hyperlipidemia, Hypertension General Exam Limitations: no limitations General appearance: alert, in no apparent distress Eye exam: Present: normal appearance, PERRL, EOMI. Absent: scleral icterus, conjunctival injection, periorbital swelling Respiratory exam: Present: normal lung sounds bilaterally. Absent: respiratory distress, wheezes, rales, rhonchi, stridor Cardiovascular Exam: Present: regular rate, normal rhythm, normal heart sounds. Absent: systolic murmur, diastolic murmur, rubs, gallop, clicks GI/Abdominal exam: Present: soft, tenderness (epigastric ), normal bowel sounds. Absent: distended, guarding, rebound, rigid Neurological exam: Present: alert Psychiatric exam: Present: normal affect, normal mood Skin exam: Present: warm, dry, intact, normal color. Absent: rash Course Vital Signs 10/22/22 10/22/22 10/22/22 19:43 21:02 22:43 Temperature 97.9 F 99.5 F Pulse Rate 79 80 72 Respiratory 20 18 18 Rate Blood Pressure 163/84 167/98 163/97 O2 Sat by Pulse 98 98 98 Oximetry Medical Decision Making - Medical Decision Making EKG taken at 20:03, interpreted by myself Sinus rhythm, no ST changes Ventricular rate 71, NM interval 131, QRS duration 86, QTc 453 Was pt. sent in by a medical professional or institution (DARI Gomez, HELICOPTER REPAIRER, urgent care, hospital, or long-term...) When possible be specific @ -No Did you speak to anyone other than the patient for history (EMS, parent, family, police, friend...)? What history was obtained from this source @ -No Did you review nursing and triage notes (agree or disagree)? Why? @ -I reviewed and agree with nursing and triage notes Were old charts reviewed (outside hosp., previous admission, EMS record, old EKG, old radiological studies, urgent care reports/EKG's, long-term records)? Report findings @ -No old charts were reviewed Differential Diagnosis (chest pain, altered mental status, abdominal pain women, abdominal pain men, vaginal bleeding, weakness, fever, dyspnea, syncope, headache, dizziness, GI bleed, back pain, seizure, CVA, palpatations, mental health)? @ Differential Abdominal Pain Women: Appendicitis, Cholecystitis, diverticulosis, ischemic bowel, pancreatitis, hepatitis, UTI, gastroenteritis, AAA, incarcerated hernia, bowel obstruction, constipation, inflammatory bowel, hepatitis, peptic ulcer disease, splenic inf arction, perforated viscus, vulvitis, ovarian torsion, PID, kidney stone, placenta abruption, this is not meant to be an all-inclusive list EKG interpreted by me (3pts min.). @ -As above X-rays interpreted by me (1pt min.). @ -None done CT interpreted by me (1pt min.). @ Query shahid fundoplication with residual tiny hiatal hernia present otherwise no acute intra-abdominal process U/S interpreted by me (1pt. min.). @ -None done What testing was considered but not performed or refused? (CT, X-rays, U/S, labs)? Why? @ -None What meds were considered but not given or refused? Why? @ -None Did you discuss the management of the patient with other professionals (professionals i.e. DARI Gomez, HELICOPTER REPAIRER, lab, RT, psych nurse, social media community manager, warehouse stock clerk, teacher, labor relations officer, nurse case management)? Give summary @ -No Was smoking cessation discussed for >3mins.? @ -No Was critical care preformed (if so, how long)? @ -No Were there social determinants of health that impacted care today? How? (Homelessness, low income, unemployed, alcoholism, drug addiction, transportation, low edu. Level, literacy, decrease access to med. care, [facility], rehab)? @ -No Was there de-escalation of care discussed even if they declined (Discuss DNR or withdrawal of care, Hospice)? DNR status @ -No What co-morbidities impacted this encounter? (DM, HTN, Smoking, COPD, CAD, Cancer, CVA, ARF, Chemo, Hep., AIDS, mental health diagnosis, sleep apnea, morbid obesity)? @ -None Was patient admitted / discharged? Hospital course, mention meds given and route, prescriptions, significant lab abnormalities, going to OR and other pertinent info. @ -Patient presenting for epigastric pain.Laboratory studies obtained. No leukocytosis. Lipase is normal. Urinalysis reflects mild dehydration. CT interpreted by myself shows a tiny residual hiatal hernia otherwise no acute intra-abdominal process. Results discussed with patient. At this time there is no blood etiology to patient's symptoms. Pain mostly controlled with Toradol and Tylenol as patient takes naltrexone therefore cannot receive opioid medication. Patient did have dry heaving in the emergency department she was given additional antiemetics which resolved symptoms. Patient in stable medical condition for discharge. She'll be discharged with pain management, Protonix, Zofran. She will follow up with Dr. Corona. Return parameters discussed. Undiagnosed new problem with uncertain prognosis? @ -No Drug Therapy requiring intensive monitoring for toxicity (Heparin, Nitro, Insulin, Cardizem)? @ -No Were any procedures done? @ -No Diagnosis/symptom? @ -Epigastric pain, nausea and vomiting Acute, or Chronic, or Acute on Chronic? @ Acute Uncomplicated (without systemic symptoms) or Complicated (systemic symptoms)? @ -Uncomplicated Side effects of treatment? @ -[No] Exacerbation, Progression, or Severe Exacerbation? @ -[No] Poses a threat to life or bodily function? How? (Chest pain, [place], [place], pneumonia, PE, COPD, DKA, ARF, appy, cholecystitis, CVA, Diverticulitis, Homicidal, Suicidal, threat to staff... and all critical care pts) @ -[No] Dr. Hoover is my attendig - Lab Data Result diagrams: 10/22/22 20:40 10/22/22 20:40 Lab Results 10/22/22 10/22/22 10/22/22 Range/Units 20:40 20:40 20:40 WBC 10.3 (3.8-10.6) k/uL RBC 4.86 (3.80-5.40) m/uL Hgb 14.7 (11.4-16.0) gm/dL Hct 43.7 (34.0-46.0) % MCV 90.0 (80.0-100.0) fL MCH 30.3 (25.0-35.0) pg MCHC 33.7 (31.0-37.0) g/dL RDW 13.0 (11.5-15.5) % Plt Count 411 (150-450) k/uL MPV 8.1 Neutrophils % 82 % Lymphocytes % 11 % Monocytes % 6 % Eosinophils % 0 % Basophils % 0 % Neutrophils # 8.4 H (1.3-7.7) k/uL Lymphocytes # 1.1 (1.0-4.8) k/uL Monocytes # 0.6 (0-1.0) k/uL Eosinophils # 0.0 (0-0.7) k/uL Basophils # 0.0 (0-0.2) k/uL Sodium 133 L (137-145) mmol/L Potassium 3.9 (3.5-5.1) mmol/L Chloride 101 (98-107) mmol/L Carbon Dioxide 23 (22-30) mmol/L Anion Gap 9 mmol/L BUN 22 H (7-17) mg/dL Creatinine 0.58 (0.52-1.04) mg/dL Est GFR (CKD-EPI)AfAm >90 (>60 ml/min/1.73 sqM) Est GFR (CKD-EPI)NonAf >90 (>60 ml/min/1.73 sqM) Glucose 168 H (74-99) mg/dL Plasma Lactic Acid Cristobal 2.0 (0.7-2.0) mmol/L Calcium 10.1 (8.4-10.2) mg/dL Total Bilirubin 1.0 (0.2-1.3) mg/dL AST 33 (14-36) U/L ALT 22 (4-34) U/L Alkaline Phosphatase 68 (38-126) U/L Total Protein 7.8 (6.3-8.2) g/dL Albumin 4.7 (3.5-5.0) g/dL Lipase 79 (23-300) U/L Urine Color Urine Appearance (Clear) Urine pH (5.0-8.0) Ur Specific [place] (1.001-1.035) Urine Protein (Negative) Urine Glucose (UA) (Negative) Urine Ketones (Negative) Urine Blood (Negative) Urine Nitrite (Negative) Urine Bilirubin (Negative) Urine Urobilinogen (<2.0) mg/dL Ur Leukocyte Esterase (Negative) 10/22/22 Range/Units 21:37 WBC (3.8-10.6) k/uL RBC (3.80-5.40) m/uL Hgb (11.4-16.0) gm/dL Hct (34.0-46.0) % MCV (80.0-100.0) fL MCH (25.0-35.0) pg MCHC (31.0-37.0) g/dL RDW (11.5-15.5) % Plt Count (150-450) k/uL MPV Neutrophils % % Lymphocytes % % Monocytes % % Eosinophils % % Basophils % % Neutrophils # (1.3-7.7) k/uL Lymphocytes # (1.0-4.8) k/uL Monocytes # (0-1.0) k/uL Eosinophils # (0-0.7) k/uL Basophils # (0-0.2) k/uL Sodium (137-145) mmol/L Potassium (3.5-5.1) mmol/L Chloride (98-107) mmol/L Carbon Dioxide (22-30) mmol/L Anion Gap mmol/L BUN (7-17) mg/dL Creatinine (0.52-1.04) mg/dL Est GFR (CKD-EPI)AfAm (>60 ml/min/1.73 sqM) Est GFR (CKD-EPI)NonAf (>60 ml/min/1.73 sqM) Glucose (74-99) mg/dL Plasma Lactic Acid Cristobal (0.7-2.0) mmol/L Calcium (8.4-10.2) mg/dL Total Bilirubin (0.2-1.3) mg/dL AST (14-36) U/L ALT (4-34) U/L Alkaline Phosphatase (38-126) U/L Total Protein (6.3-8.2) g/dL Albumin (3.5-5.0) g/dL Lipase (23-300) U/L Urine Color Yellow Urine Appearance Clear (Clear) Urine pH 7.0 (5.0-8.0) Ur Specific [place] 1.050 H (1.001-1.035) Urine Protein Trace H (Negative) Urine Glucose (UA) 1+ H (Negative) Urine Ketones 1+ H (Negative) Urine Blood Negative (Negative) Urine Nitrite Negative (Negative) Urine Bilirubin Negative (Negative) Urine Urobilinogen <2.0 (<2.0) mg/dL Ur Leukocyte Esterase Negative (Negative) Disposition Clinical Impression: Epigastric pain Disposition: TRANSFER TO PSYCH HOSP/UNIT Condition: Good Additional Instructions: Take medication as directed. Please follow-up with Dr. Corona in 1-2 days. Return to the emergency department if you experience new, concerning, or worsening symptoms Prescriptions: Ibuprofen [Motrin] 600 mg PO Q6HR PRN #30 tab PRN Reason: Pain Pantoprazole [Protonix] 40 mg PO DAILY #14 tab Acetaminophen Tab [Tylenol] 650 mg PO Q4H PRN #30 tab PRN Reason: Pain Ondansetron Odt [Zofran Odt] 4 mg PO Q8HR PRN #10 tab PRN Reason: Nausea Is patient prescribed a controlled substance at d/c from ED?: No Referrals: Jose Francisco Jennings DO [Primary Care Provider] - 1-2 days
[2022-10-22 21:13] LABS: Potassium 3.9 mmol/L (3.5-5.1)
[2022-10-22 21:14] LABS: ALT 22 U/L (4-34); AST 33 U/L (14-36); African American GFR (CKD) >90 (>60 ml/min/1.73 sqM); Albumin 4.7 g/dL (3.5-5.0); Alkaline Phosphatase 68 U/L (38-126); Anion Gap 9 mmol/L; Blood Urea Nitrogen 22 mg/dL (7-17); Calcium 10.1 mg/dL (8.4-10.2); Carbon Dioxide 23 mmol/L (22-30); Chloride 101 mmol/L (98-107); Glucose 168 mg/dL (74-99); Lipase 79 U/L (23-300); Non-African American GFR(CKD) >90 (>60 ml/min/1.73 sqM); Sodium 133 mmol/L (137-145); Total Protein 7.8 g/dL (6.3-8.2)
[2022-10-22 21:45] VITALS: RESP 18
--- NOTE | 2022-10-22 21:51 | CT ---
EXAMINATION TYPE: CT abdomen pelvis w con DATE OF EXAM: 10/22/2022 COMPARISON: 08/24/2022 HISTORY: 52-year-old female Recent hernia repair Sx. Epigastric pain. Nausea. TECHNIQUE: Contiguous axial scanning of the abdomen and pelvis following administration of 100 ml Iso luba 300 IV contrast. Delayed images through the kidneys and coronal/sagittal reconstructions perform ed. CT DLP: 725.8 mGycm Automated exposure control for dose reduction was used. FINDINGS: Heart normal size without pericardial effusion. Lung bases clear without pleural effusion. There may be a residual tiny hiatal hernia with postsurgical change of Vance fundoplication and mery tional sleeve gastrectomy. No focal liver lesion or biliary ductal dilatation. Portal venous system is patent. Bladder surgicall y absent. Adrenal glands, kidneys, spleen, and pancreas within normal limits. No dilated small bowel, free fluid, or free air. No mesenteric or retroperitoneal lymphadenopathy. Bladder partially distended. Uterus anteverted. Ovaries are visualized. No abnormal fluid collection the pelvis or pelvic lymphadenopathy. Bones: Transitional lumbosacral segment is noted as a lumbarized S1. There is advanced hypertrophic f acet arthropathy lower lumbar spine with grade 2 anterolisthesis of L5-S1. IMPRESSION: 1. STATUS POST SLEEVE GASTRECTOMY. QUERY VANCE FUNDOPLICATION WELL. THERE SEEMS TO BE A RESIDUAL TINY HIATAL HERNIA PRESENT. 2. NO ACUTE INFLAMMATORY PROCESS IDENTIFIED IN THE ABDOMEN OR PELVIS TO EXPLAIN PATIENT'S SYMPTOMS. 3. 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
[2022-10-22 21:52] LABS: Appearance,Urine Clear (Clear); Bilirubin,Urine Negative (Negative); Blood,Urine Negative (Negative); Color,Urine Yellow; Glucose,Urine (UA) 1+ (Negative); Ketones,Urine 1+ (Negative); Leukocyte Esterase,Urine Negative (Negative); Nitrite,Urine Negative (Negative); Protein,Urine Trace (Negative); Urobilinogen,Urine <2.0 mg/dL (<2.0)
[2022-10-22] MEDS ORDERED: PANTOPRAZOLE 40 MG/10 ML VIAL IVP STA (22:24)
[2022-10-22 22:49] VITALS: BP 163/97; PULSE 72; TEMP 99.5
== END 2022-10-22 22:55 ==
LOC: EC 19:38
DX: R10.13 Epigastric pain (principal); I10 Essential (primary) hypertension; F32.A Depression, unspecified; E78.5 Hyperlipidemia, unspecified; K21.9 Gastro-esophageal reflux disease without esophagitis; Z79.899 Other long term (current) drug therapy; Z88.0 Allergy status to penicillin; Z91.040 Latex allergy status; Z90.49 Acquired absence of other specified parts of digestive tract
CPT/HCPCS: 36415; 93005; 80053; 83605; 83690; 85025; 81003; 74177; 99285; 96374; 96375 ×4; 96361; J0780; J2405; J0131; J1885; C9113; Q9967

== ENCOUNTER → 2024-07-23 | Outpatient (CLI) | payer BC ==
--- NOTE | 2024-07-24 07:02 | MM ---
Reason for Exam: Screening (asymptomatic). Last mammogram was performed 3 year(s) and 5 month(s) ago. Patient History: Menarche at age 10. First Full-Term at age 30. Late child-bearing (after 30). Postmenopausal. Patient used Hormonal Contraceptives for 10 years. 04/2007, Bilateral Reduction. Risk Values: Alannah 5 year model risk: 1.7%. NCI Lifetime model risk: 10.9%. Prior Study Comparison: 01/08/2013 Bilateral Diagnostic Mammogram, [facility]. 11/24/2017 Bilateral Screening Mammogram, [facility]. 03/11/2021 Bilateral Screening Mammogram, [facility]. Tissue Density: There are scattered areas of fibroglandular density. Findings: Analyzed By CAD. There are regional benign appearing round dystrophic calcifications in the right breast redemonstrated. A few oil cysts are noted including largest corresponding to long time palpable abnormality marked by technologist. There are a few small scattered benign-appearing round calcifications throughout the left breast redemonstrated. There is no suspicious group of microcalcifications or new suspicious mass in either breast. Overall Assessment: Benign, BI-RAD 2 Management: Screening Mammogram of both breasts in 1 year. Manage patient's symptoms of right breast pain for 6 months clinically. Patient should continue monthly self-breast exams. A clinical breast exam by your physician is recommended on an annual basis. This exam should not preclude additional follow-up of suspicious palpable abnormalities. Note on Alannah scores and lifetime risk: 1. A Alannah score greater than 3% is considered moderate risk. If this is the case, consider specialist referral to assess eligibility for a risk reducing agent. 2. If overall lifetime risk for the development of breast cancer is 20% or higher, the patient may qualify for future screening with alternating mammogram and breast MRI. [facility], , 07/24/2024 6:58 AM. Electronically signed and approved by: Nic Amezquita M.D.
== END | disposition home or self-care (01) ==
LOC: RADMAMWWP 15:23
PROVIDERS: ATTEND Obstetrics & Gynecology
DX: Z12.31 Encounter for screening mammogram for malignant neoplasm of breast (principal); R92.323 Mammographic fibroglandular density, bilateral breasts; R92.1 Mammographic calcification found on diagnostic imaging of breast; Z78.0 Asymptomatic menopausal state; Z92.0 Personal history of contraception
CPT/HCPCS: 77063; 77067